=== PATIENT | female | born 1980 | race African-American/Black ===

== ENCOUNTER 2022-04-18 09:38 | Outpatient (CLI) | payer MEDICARE, MEDICAID, SELFPAY ==
[2022-04-18 10:25] LABS: Hematocrit 31.7 % (37.0-47.0); Hemoglobin 10.3 g/dL (12.0-15.0)
[2022-04-18 10:36] LABS: Anion Gap 7 mmol/L (8-16); Blood Urea Nitrogen 17 mg/dL (7-17); Calcium 8.3 mg/dL (8.4-10.2); Carbon Dioxide 25 mmol/L (22-30); Chloride 105 mmol/L (98-107); Estimated Glomerular Filt Rate > 60; Glucose 188 mg/dL (65-110); Potassium 4.2 mmol/L (3.4-5.0); Sodium 137 mmol/L (137-145)
== END 2022-04-18 09:39 | disposition home or self-care (01) ==
LOC: ANHSURGERY 09:45
PROVIDERS: Anesthesiology; PCP Internal Medicine Gastroenterology; Visit Provider Obstetrics & Gynecology Gynecology
DX: D64.9 Anemia, unspecified (principal); E11.9 Type 2 diabetes mellitus without complications
CPT/HCPCS: 36415; 80048; 85014; 85018

== ENCOUNTER 2022-04-23 01:42 | Day surgery (SDC) | payer MEDICARE, MEDICAID, SELFPAY ==
[2022-04-11 08:36] VITALS: BMI 30.9
--- NOTE | 2022-04-11 08:44 | PC.NURSE ---
Report to the Outpatient Waiting Room, entrance under the green pavilion located off [facility], at time _0800_ on date _[id number]_. Planned Procedure Time: _1000_. Time changes happen often and if your time is changed the preop area will call you the afternoon before. - You and your visitor will be asked to self-screen and do not enter if you have any COVID symptoms. - Only one visitor is requested with a max of two and NO children visitors are allowed at this time. - The patient visitor may be requested to leave or wait in car when not with patient due to distancing restrictions. - A mask is optional within the hospital. Patients may have clear liquids (water, carbonated beverages, clear teas, apple juice) until 3 hours prior to surgery with a maximum of 20 ounces. - No food from midnight until time of surgery Take the following medications with a SIP of water the morning of surgery: ____None No insulin morning of surgery. Medications to discontinue per physician Date to take last dose Contact Dr Maya's office about Eliquis. Please no make-up, nail croatian, hairspray, perfume, deodorant, or body powder the day of surgery. No jewelry (including any body piercings) or valuables the day of surgery, leave them at home. Please take a shower or bath the night before, or the morning of, surgery with an antibacterial soap. Wear comfortable, loose fitting clothing. - Jewelry must be removed prior to entering the operating room. Rings and piercings that are not removed may be cut off. - The hospital will not accept responsibility for valuables. - Please leave all valuables, including medications, at home the day of surgery. If you are going home after surgery, a licensed driver retraining instructor must drive you home. - NO public transportation without another adult if you receive anesthesia. - We recommend that an adult stay with you for 24 hours following discharge. - We also recommend that you do not drive, make important decision, drink alcoholic beverages, or take any drugs that were not prescribed by your health care provider for at least 24 hours after your discharge time. Follow any additional instructions given to you from your surgeon. If you or anyone in your household have experienced Covid symptoms in the past week, please notify your surgeon or the nurse liaison at the phone number below for possible testing. Telephone instructions given to __Patient__and asked if any additional questions and then verbalized understanding. Patient advised to call surgeon office or pre surgery nurse liaison [phone] if any additional questions.
--- NOTE | 2022-04-23 07:29 | WPDHPUPDATE1 ---
History and Physical Update Update Date/Time: 04/23/22 07:29 History and Physical has been reviewed, including an updated exam of the patient. There are NO changes in the patient's condition. Risks, benefits, and alternatives have been discussed and questions answered. Patient agrees to proceed with procedure.
--- NOTE | 2022-04-23 07:29 | PM.HPGS ---
History of Present Illness History of Present Illness Consent: Risks, benefits, and alternatives have been discussed and questions answered. Patient agrees to proceed with procedure. Chief complaint: menorrhaghia Narrative: Milagro Duarte is a 41 year old female with heavy but regular cycles patient states in December she with 3 3 boxes of tampons. She typically a cycle each month lasting for 5 days the flow and clotting has increased over the past several months. The patient was anemic with a hemoglobin of 10.7. It was recommended to proceed with further workup. Risks of infection, bleeding, perforation, and fluid imbalance were reviewed. Possible pathology was discussed. The patient voices understanding and agrees to proceed. Review of Systems Review of Systems: not repeated day of surgery; patient states no changes in status Genitourinary: Genitourinary: Reports hot flashes Musculoskeletal: Musculoskeletal: Reports back pain Endocrine: Endocrine: Reports polydipsia PMFSH Past Medical History Medical History (Updated 04/23/22 @ 07:34 by Carmita Maya MD) History of deep vein thrombosis Myasthenia gravis (normal spontaneous vaginal delivery) x2 Type 2 diabetes mellitus Surgical History Surgical History (Updated 04/23/22 @ 07:33 by Carmita Maya MD) History of bilateral tubal ligation History of thymectomy Social History Social History Smoking status: Never smoker Alcohol intake: current Drinks per week: 2 Living arrangements: with family Spiritual care concerns: No Meds Home Medications and Allergies Home Medications Medication Instructions Recorded Confirmed Type apixaban 5 mg tablet (Eliquis) 5 mg PO BID 04/11/22 04/11/22 History azathioprine 50 mg tablet 50 mg PO BID 04/11/22 04/11/22 History cholecalciferol (vitamin D3) 50 2,000 unit PO DAILY 04/11/22 04/11/22 History mcg (2,000 unit) capsule ferrous sulfate 325 mg (65 mg 325 mg PO DAILY 04/11/22 04/11/22 History iron) tablet insulin glargine 100 unit/mL (3 12 unit subcut QAM 04/11/22 04/11/22 History mL) subcutaneous pen (Lantus Solostar U-100 Insulin) insulin lispro 100 unit/mL 1 unit subcut TIDWMEAL 04/11/22 04/11/22 History subcutaneous pen (Humalog KwikPen (U-100) Insulin) lisinopril 5 mg tablet 5 mg PO DAILY 04/11/22 04/11/22 History pregabalin 75 mg capsule 75 mg PO BID 04/11/22 04/11/22 History Allergies Allergy/AdvReac Type Severity Reaction Status Date / Time No Known Allergies Allergy Verified 04/11/22 08:31 Exam Const: General: healthy appearing and alert Orientation/consciousness: patient oriented x3 Neck: Thyroid: diffusely enlarged Resp: Effort & Inspection: normal respiratory effort GI: GI Palp: Yes Soft to palpation, No Tenderness to palpation present (GI) and No Palpable mass present : External Female Exam: normal external appearance Speculum Exam - Vagina: normal appearance of the vagina and normal vaginal discharge Speculum Exam - Cervix: normal appearance of the cervix Bimanual exam- vagina & uterus: uterine size normal and consistency normal Bimanual Exam- Adnexa, other: normal adnexae and No adnexal tenderness Neuro: General: patient oriented x3 Assessment and Plan Assessment and plan (1) Menorrhagia: Code(s): N92.0 - Excessive and frequent menstruation with regular cycle Status: Acute Assessment and Plan: plan is to proceed with D&C hysteroscopy
--- NOTE | 2022-04-23 08:07 | WPDANESEPPF ---
Anes - Initial Pre Proc Eval Procedure: Operation Date: 04/23/22 10:00 Proposed Procedures p Hysteroscopy, Dilation and Curettage - Carmita Maya MD Date/Time: 04/23/22 08:07 Surgeon: Carmita Maya MD Pre Op Diagnosis: menorrhaghia Patient Data Age: 41 Gender: F Height: 1.63 m Weight: 81.8 kg Allergies Allergy/AdvReac Type Severity Reaction Status Date / Time No Known Allergies Allergy Verified 04/23/22 08:00 Home Medications Medication Instructions Recorded Confirmed Type apixaban 5 mg tablet (Eliquis) 5 mg PO BID 04/11/22 04/11/22 History azathioprine 50 mg tablet 50 mg PO BID 04/11/22 04/11/22 History cholecalciferol (vitamin D3) 50 2,000 unit PO DAILY 04/11/22 04/11/22 History mcg (2,000 unit) capsule ferrous sulfate 325 mg (65 mg 325 mg PO DAILY 04/11/22 04/11/22 History iron) tablet insulin glargine 100 unit/mL (3 12 unit subcut QAM 04/11/22 04/11/22 History mL) subcutaneous pen (Lantus Solostar U-100 Insulin) insulin lispro 100 unit/mL 1 unit subcut TIDWMEAL 04/11/22 04/11/22 History subcutaneous pen (Humalog KwikPen (U-100) Insulin) lisinopril 5 mg tablet 5 mg PO DAILY 04/11/22 04/11/22 History pregabalin 75 mg capsule 75 mg PO BID 04/11/22 04/11/22 History Patient hx anesthesia problems: none Family hx anesthesia problems: none Results Review: All pre-operative results and documents have been reviewed as part of the pre-operative evaluation. [facility] Past Medical History Medical History History of deep vein thrombosis Myasthenia gravis (normal spontaneous vaginal delivery) x2 Type 2 diabetes mellitus Surgical History Surgical History History of bilateral tubal ligation History of thymectomy Social History Social History Smoking status: Never smoker Alcohol intake: current Drinks per week: 2 Living arrangements: with family Spiritual care concerns: No Anes - Eval Final PreProcedure Day of Procedure 04/23/22 08:07 Patient weight: obese Heart: regular rate and rhythm Lungs: clear to auscultation Airway: Mallampati scale class II Neurological: alert and oriented Last oral intake: >/= 8 hours ASA classification: III Emergent: no Anesthetic plan: proceed Anesthesia type and monitoring: general GIVS and standard monitoring Results Review: All pre-operative results and documents have been reviewed as part of the pre-operative evaluation. Informed Consent: The patient's anesthetic plan and its attendant risks and benefits were discussed with the patient/family/POA. Questions were solicited and answers provided to the satisfaction of the patient/family/POA.
[2022-04-23] MEDS: LACTATED RINGERS 1,000 ML 30 ML IV CONT (08:20)
[2022-04-23] MEDS: ACETAMINOPHEN 500 MG TABLET 1000 MG PO (08:28)
[2022-04-23] MEDS: DEXTROSE 50% 25 GM/50 ML SYRINGE IV PUSH (08:32)
[2022-04-23 08:35] LABS: Glucose Point of Care 69 mg/dl (65-105)
[2022-04-23 08:36] VITALS: BP 170/98; PULSE 96; RESP 16; TEMP 36.1; O2SAT 100
[2022-04-23] MEDS: LIDOCAINE HCL 1% PF 30 ML VIAL 10 ML INFILTRATE (08:53)
[2022-04-23 09:03] VITALS: BP 104/62; PULSE 91; RESP 16; O2SAT 100
--- NOTE | 2022-04-23 09:03 | P.OP_ITS ---
Procedure Note - Detailed Date of Procedure 04/23/22 Pre-op Diagnosis menorrhaghia Post-op Diagnosis Same Procedure Performed D&C hysteroscopy Surgeon Carmita Maya MD Anesthesia MAC and Local Findings cervical stenosis; uterus sounds to 8cm and appears grossly secretory Description of Procedure The patient is taken to the operating room and placed under anesthesia in the dorsal lithotomy position. She was prepped and draped in the usual sterile fas hion. Ulysses speculum was placed in the vagina and the cervix was grasped on the anterior lip with a tenaculum. The cervix is noted to be stenotic at the external os and the small Hegar is used to enter the os. The uterus is noted to be retroverted. The cervix is serially dilated to a 5 Hegar. The uterus is sounded to 8cm. The hysteroscope is placed with the stated findings. Due to no abnormalities noted the hysteroscope was removed. The small curette is used to curette the endometrium until a good uterine cry is noted in all areas. All instruments are removed. Sponge, needle, and instrument counts are correct per the OR staff. The patient is awakened from anesthesia and taken to recovery in stable condition. Estimated Blood Loss 5 Drains No Packing No Pathology Yes ( Endometrial curettings) Complications No immediate complications Condition Stable Disposition PACU
[2022-04-23 09:10] LABS: Glucose Point of Care 124 mg/dl (65-105)
[2022-04-23 09:30] VITALS: BP 125/95; PULSE 95; RESP 16
== END 2022-04-23 10:00 | disposition home or self-care (01) ==
PROVIDERS: PCP Internal Medicine Gastroenterology; Visit Provider Obstetrics & Gynecology Gynecology
PROC: 0U5B8ZZ Destruction of Endometrium, Via Natural or Artificial Opening Endoscopic (ICD-10-PCS; CPT 58563; principal; 2022-04-23 10:00)
DX: N92.0 Excessive and frequent menstruation with regular cycle (principal); E11.9 Type 2 diabetes mellitus without complications; Z86.718 Personal history of other venous thrombosis and embolism; Z79.01 Long term (current) use of anticoagulants; Z79.4 Long term (current) use of insulin; E66.9 Obesity, unspecified; Z68.30 Body mass index [BMI] 30.0-30.9, adult
CPT/HCPCS: 58558; 82948; 88305; A9270; J2250; J2405; J2704; J3010; J7030; J7120

== ENCOUNTER 2024-06-23 14:15 | Outpatient (CLI) | payer MEDICARE, MEDICAID, SELFPAY ==
[2024-06-23 14:39] LABS: Add Urine Microscopic? YES; Appearance Urine Clear (Clear); Bacteria Urine None Seen /hpf; Bilirubin Urine Negative (Negative); Blood Urine Trace (Negative); Color Urine Yellow (Yellow); Glucose Urine UA Trace mg/dL (Negative); Ketones Urine Negative (Negative); Leukocyte Esterase Ur Negative LEU/UL (Negative); Nitrate Urine Negative (Negative); Protein Urine 3+ mg/dL (Negative); Specific Grav Ur 1.021 (1.001-1.035); Squamous Epithelial Cell Urine None Seen /hpf (Few); WBC Urine 0-5 /hpf (0-3)
--- OUTSIDE RECORDS SUMMARY | 2024-06-23 14:51 | XMS_ITS | Clinical Summary ---
Author Organization [facility] Address [address] [place] [address] Phone Care Team Providers Care City Bus Driver Name Role Phone Johnnie Velasquez Provider Primary Care Provider Unavailable Allergies No known active allergies Medications Lantus Solostar U-100 Insulin 100 unit/mL (3 mL) solution for injection INJECT 25 UNITS UNDER THE SKIN DAILY 11/02/2019 Active insulin lispro (HumaLOG KwikPen Insulin) 100 unit/mL pen syringe Inject 5 units with meals 06/05/2019 Active lisinopriL (PRINIVIL) 5 mg tablet Take 1 tablet daily as directed 09/29/2019 Active azaTHIOprine (IMURAN) 50 mg tablet TAKE 2 TABLETS TWICE DAILY 08/01/2016 Active Active Problems No known active problems Family History Medical History Relation Name Comments Cancer Maternal Grandfather Relation Name Status Comments Maternal Grandfather Social History Tobacco Use Types Packs/Day Years Used Date Smoking Tobacco: Never Smokeless Tobacco: Never Alcohol Use Standard Drinks/Week Comments Yes 3 (1 standard drink = 0.6 oz pur e alcohol) Comments Unknown Sex and Gender Information Value Date Recorded Sex Assigned at Not on file Legal Sex Female 9:23 AM CDT Gender Identity Not on file Sexual Orientation Not on file Last Filed Vital Signs Vital Sign Reading Time Taken Comments Blood Pressure 120/80 11/10/2019 11:36 AM CDT Pulse - - Temperature - - Respiratory Rate - - Oxygen Saturation - - Inhaled Oxygen Concentration - - Weight 79.8 kg (176 lb) 11/10/2019 11:36 AM CDT Height 162.6 cm (5' 4 ) 11/10/2019 11:36 AM CDT Body Mass Index 30.21 11/10/2019 11:36 AM CDT Plan of Treatment Health Maintenance Due Date Last Done Comments PNEUMOCOCCAL VACCINE 0-64 YEARS (1 of 2 - PCV) 1984 DIABETES ANNUAL FOOT EXAM 1996 DIABETES ANNUAL RETINAL EXAM 1996 DIABETES MICROALBUMIN ANNUAL SCREEN 1996 LDL CHOLESTEROL ANNUAL 1996 DTAP/TDAP/TD VACCINES (1 - Tdap) 1997 HEPATITIS B VACCINES (1 of 3 - 19+ 3-dose series) 1997 CERVICAL CANCER SCREENING 2008 BREAST CANCER SCREENING 2018 COLORECTAL SCREENING 2023 Colorectal Cancer Screening 2023 FIT-DNA Q 3 years 2023 FIT/FOBT Q 1 year 2023 Flex Sig/CT Colonography Q 5 years 2023 INFLUENZA VACCINE (#1) 2023 DIABETES HBA1C Q 6 MONTHS 05/16/20242023, 06/13/2021 HPV VACCINES Aged Out No longer eligi ble based on patient's age to complete this topic Care Teams City Bus Driver Relationship Specialty Start Date End Date Johnnie Velasquez Provider PCP - General 11/10/19
--- OUTSIDE RECORDS SUMMARY | 2024-06-23 14:51 | XMS_ITS | CONTINUITY OF CARE DOCUMENT ---
Author Name moises jessicatom Address Unknown Organization [facility] Address [address] [place] [address] [address] [place] [address] Phone [phone] Care Team Providers Care Beauty Counselor Name Role Phone Son Gar MD Unavailable [phone] BECKI GALO Unavailable [phone] BECKI GALO Unavailable [phone] PROBLEMS Condition Status Date Provider Notes Cardiology examination active Son St DVT active Son Gar MD Elevated blood pressure active Son Gar MD Leg pain active Son Gar MD Diabetes mellitus active Sno Gar MD Swelling of bilateral legs active Son rodriguez MD ENCOUNTERS Date Type Provider Location Encounter Diag nosis - In-person encounter Office Visit Son aGr MD [facility] - In-person encounter Office Visit Son Gar MD [facility] Swelling of bilateral legs - In-person encounter Office Visit Son Gar MD [facility] Cardiology examinationDVTElevated blood pressureLeg painDiabetes mellitus VITAL SIGNS Date Observation Value Provider Body Mass Index (Ratio) 31.79 kg/m2 Dominique Toledo blood pressure, diastolic -1 mm[Hg] Ina Cote blood pressure, systolic 150 mm[Hg] Clarice Alamo blood pressure, diastolic 90 mm[Hg] Clarice Mcrae blood pressure, systolic 150 mm[Hg] Olivia Mcrae blood pressure, cuff size regular Clarice Mcrae weight E&M 185.2 [lb_av] Kathrine Mcrae pulse rate 98 /min aKthrine Mcrae respiratory rate E&M 18 /min Kathrine Mcrae oxygen saturation, oximetry 99 % Kathrine Mcrae height E&M 64 [in_i] Kathrine Mcrae Body Mass Index (Ratio) 31.07 kg/m2 Rachell king Junior blood pressure, diastolic 91 mm[Hg] Ariana almazan Jerardo blood pressure, systolic 125 mm[Hg] Cabrera roland Jerardo oxygen saturation, oximetry 98 % Kirsten Kurtz respiratory rate E&M 18 /min Kirsten Kurtz pulse rate 91 /min Kirsten Kurtz weight E&M 181 [lb_av] Kirsten Kurtz height E&M 64 [in_i] Kirsten Kurtz Body Mass Index (Ratio) 30.72 kg/m2 Rachell Reynoldsmaru blood pressure, diastolic 102 mm[Hg] Li nkLogic blood pressure, systolic 154 mm[Hg] Clarice kLogic blood pressure, diastolic 102 mm[Hg] Sa ra Hernandez blood pressure, systolic 154 mm[Hg] Deborah a Hernandez oxygen saturation, oximetry 98 % Milagro Hernandez respiratory rate E&M 22 /min Milagro Si ms pulse rate 88 /min Milagro Hernandez weight E&M 179 [lb_av] Milagro Hernandez height E&M 64 [in_i] Milagro Hernandez blood pressure, cuff size regular Sa ra Hernandez ALLERGIES No Known Drug Allergies HISTORY OF MEDICATION USE Medication Status Instructions Dates Provider Indications Com ryanne Grecoendia 10 mg tablet active Son Gar MD Eliquis 5 mg tablet active Take 1 tablet by mouth twice a day For the first week, please take two tablets twice a day. After one week, take one tablet twice a day. 9 Son Gar MD Lantus Solostar U-100 Insulin 100 unit/mL (3 mL) insulin pen active Milagro Hernandez lisinopril 5 mg tablet completed - 1 Son Gar MD azathioprine 50 mg tablet active Milagro Hernandez gabapentin 600 mg tablet active Imlagro Hernandez Humalog KwikPen Insulin 100 unit/mL insulin pen active Milagro Hernandez Lyrica unspecified unspecified active Take 1 capsule by mouth three times a day Milagro Hernandez SOCIAL HISTORY Date Observation Value Provider number of grandchildren Son Gar MD social history E&M S moking History: U nknown if patient has ever smoked. Son Gar MD smoking status Unknown if ever smoked Son Gar MD social history reviewed E&M revi ewed - no changes required Son Gar MD social history reviewed E&M revi ewed - no changes required Son Gar MD social history E&M S moking History: U nknown if patient has ever smoked. Susanne Pacheco social history reviewed E&M revi ewed - no changes required Susanne Pacheco smoking status Unknown if ever smoked Bri Pacheco INSURANCE PROVIDERS Payer name Policy type / Coverage type [place] [employer] MEDIC[place] PART B Medicare [id number] [facility] Medicaid 1 [id number] ADVANCE DIRECTIVES Name Date DISCUSSED - NO DECISION MADE TREATMENT PLAN Date Name Performer [id number],C,P t still c/o of heaviness in legs and feet despite use of support stockings Christopher Brittrhett [id number],C,B P is elevated, but pt states that it 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 We will obtain renal duplex and BLANCA. Christopher Stubbs [id number],S,V enous Duplex showed no DVT, however bilateral GSV insufficiency. Crhistopher Stubbs [id number],S, Son Gar MD [id number],C,Will contine to monitor. Son Gar MD [id number],C,Recommended s upport stockings Son Gar MD [id number],C, T he following medications were removed from the medication list: Lisinopril 5 Mg Tablet (Lisinopril) Her updated medication list for this problem includes: Lantus Solostar U-100 Insulin 100 Unit/ml (3 Ml) Insulin Pen (Insulin glargine) Lisinopril 5 Mg Tablet (Lisinopril) Humalog Kwikpen Insulin 100 Unit/ml Insulin Pen (Insulin lispro) Son Gar MD [id number],C,S table today RPM Susanne Junior [id number],C,P t states the swelling of her left leg has resolved, however both feet are now swelling. I recommend she try support stockings. She has finished with Eliquis and does not want to continue due to heavy menstrual bleeding. Pt denies chest pain and SOB. Susanne Jnuior [id number],C,P t states the swelling of her left leg has resolved, however both feet are now swelling. I recommend she try support stockings. She has finished with Eliquis and does not want to continue due to heavy menstrual bleeding. Pt denies chest pain and SOB. Susanne Junior [id number],C, H er updated medication list for this problem includes: Lantus Solostar U-100 Insulin 100 Unit/ml (3 Ml) Insulin Pen (Insulin glargine) Lisinopril 5 Mg Tablet (Lisinopril) Humalog Kwikpen Insulin 100 Unit/ml Insulin Pen (Insulin lispro) Son Gar MD [id number],C,T he pt developed DVT of the left leg. The only risk factor was control pill which she has now stopped. No trauma. Started on Eliquis in ER, sxs improved. Recommend to continue Eliquis for 6 months. If she is symptoamtic, we can consider thrombectomy. She has diabetes, we will check echo. Susanne Pacheco [id number],C,. She has diabetes, we will check echo. Her updated medication list for this problem includes: Lantus Solostar U-100 Insulin 100 Unit/ml (3 Ml) Insulin Pen (Insulin glargine) Lisinopril 5 Mg Tablet (Lisinopril) Humalog Kwikpen Insulin 100 Unit/ml Insulin Pen (Insulin lispro) Susanne Pacheco [id number],C,T he pt developed DVT of the left leg. The only risk factor was control pill which she has now stopped. No trauma. Started on Eliquis in ER, sxs improved. Recommend to continue Eliquis for 6 months. If she is symptoamtic, we can consider thrombectomy. 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 We will obtain renal duplex and BLANCA. Christopher Stubbs Cardiology:Venous Du plex showed no DVT, however bilateral GSV insufficiency. Christopher Stubbs Cardiology Son Gar MD Cardiology:Will contine to monit or. Son Gar MD Cardiology:Recommended support s salina Gar MD Cardiology: T he following medications were removed from the medication list: Lisinopril 5 Mg Tablet (Lisinopril) Her updated medication list for this problem includes: Lantus Solostar U-100 Insulin 100 Unit/ml (3 Ml) Insulin Pen (Insulin glargine) Lisinopril 5 Mg Tablet (Lisinopril) Humalog Kwikpen Insulin 100 Unit/ml Insulin Pen (Insulin lispro) Son Gar MD Cardiology:Stable to day RPM Susanne Junior Cardiology:Pt states the swelling of her left leg has resolved, however both feet are now swelling. I recommend she try support stockings. She has finished with Eliquis and does not want to continue due to heavy menstrual bleeding. Pt denies chest pain and SOB. Susanne Junior Cardiology:Pt states the swelling of her left leg has resolved, however both feet are now swelling. I recommend she try support stockings. She has finished with Eliquis and does not want to continue due to heavy menstrual bleeding. Pt denies chest pain and SOB. Susanne Junior Cardiology: H er updated medication list for this problem includes: Lantus Solostar U-100 Insulin 100 Unit/ml (3 Ml) Insulin Pen (Insulin glargine) Lisinopril 5 Mg Tablet (Lisinopril) Humalog Kwikpen Insulin 100 Unit/ml Insulin Pen (Insulin lispro) Son Gar MD Cardiology:The pt de veloped DVT of the left leg. The only risk factor was control pill which she has now stopped. No trauma. Started on Eliquis in ER, sxs improved. Recommend to continue Eliquis for 6 months. If she is symptoamtic, we can consider thrombectomy. She has diabetes, we will check echo. Susanne Junior Cardiology:. She has diabetes, we will check echo. Her updated medication list for this problem includes: Lantus Solostar U-100 Insulin 100 Unit/ml (3 Ml) Insulin Pen (Insulin glargine) Lisinopril 5 Mg Tablet (Lisinopril) Humalog Kwikpen Insulin 100 Unit/ml Insulin Pen (Insulin lispro) Susanne Pacheco Cardiology:The pt de veloped DVT of the left leg. The only risk factor was control pill which she has now stopped. No trauma. Started on Eliquis in ER, sxs improved. Recommend to continue Eliquis for 6 months. If she is symptoamtic, we can consider thrombectomy. Susanne Reynoldsgene Date Name Arterial Duplex Bi-L ower EX Renal Artery Duplex RPM (remote patient monitoring) Venous Doppler Bilat eral LE - Reflux Complete Echo HISTORY OF PROCEDURES Procedure Date Procedure Name Provider Procedure Notes S tatus EKG Son Gar MD completed EKG Son Gar MD completed
--- OUTSIDE RECORDS SUMMARY | 2024-06-23 14:52 | XMS_ITS | Patient Health Summary ---
Author Organization [facility] Address [address] [place] [address] Care Team Providers Care Head Of It Name Role Phone Amelie Freitas MD Primary Care Provider + [phone] Note from [facility],non-owned Affiliates and Associated Physician Practices is amultiple site organization consisting of ambulatory clinics and hospital sitesin [place], [place], [place] and [place]. This disclosure is being madepursuant to the Care Everywhere program and may not contain all information available regarding this patient. Last updated 18.[facility] [employer] Allergies No known active allergies Medications * Be aware that medications may not be up to date on this document. Alwaysverify current medications with the patient. * insulin lispro (HUMALOG) 100 UNIT/ML vial(Started 01/07/2012) Inject 8 (eight) Units subcutaneously * insulin glargine (LANTUS) vial(Started 01/07/2012) Inject 25 (twenty five) Units subcutaneously * lisinopril (PRINIVIL;ZESTRIL) 5 MG tablet Take 1 (one) tablet by mouth once daily * Continuous Blood Gluc Sensor (FreeStyle Mindy 3 Sensor) [facility](Started 05/12/2022) USE DIRECTED AND CHANGE ONCE EVERY 14 DAYS * pyRIDostigmine (Mestinon) 60 MG tablet(Started 08/13/2022) TAKE 1 TABLET BY MOUTH THREE TIMES A DAY 1 refill by 08/13/2023 * Kerendia 10 MG tablet(Started 06/29/2022) Take 1 (one) tablet by mouth every morning * NovoLOG FLEXPEN pen(Started 08/08/2022) * DULoxetine (Cymbalta) 60 MG capsule(Started 07/16/2023) Take 1 (one) capsule by mouth once daily 4 refills by 07/15/2024 * Insulin Disposable Pump (Omnipod 5 G6 Pods, Gen 5,) MISC(Started 09/22/2023) * clobetasol (Temovate) 0.05 % ointment(Started 02/18/2024) APPLY TO RASH TWICE DAILY. TWO WEEKS ON FOLLOWED BY ONE WEEK OFF. 30 DAYS SUPPLY. 2 refills by 02/17/2025 * betamethasone dipropionate (Diprosone) 0.05 % ointment(Started 04/03/2024) Apply to affected area 2 times daily 2 refills by 04/03/2025 * DULoxetine (Cymbalta) 60 MG capsule(Started 04/20/2024) Take 1 (one) capsule by mouth 2 times daily 4 refills by 04/20/2025 Active Problems Problem Noted Date Diagnosed Date Dizziness 11/14/2023 Near syncope 11/14/2023 Myasthenia gravis 11/14/2023 Swelling of lower extremity 06/26/2022 DVT (deep venous thrombosis) 12/22/2021 Elevated blood-pressure read ing, without diagnosis of hypertension 12/22/2021 Encounter for screening for cardiovascular disor ders 12/22/2021 Leg pain 12/22/2021 Dysphagia 11/10/2012 Polyglandular autoimmune syndrome, type 2 2012 Premature ovarian failure 09/01/2012 Osteopenia 08/29/2012 Myasthenia gravis status post thymectomy 013 Thyroid activity decreased 06/18/2012 Subclinical hyperthyroidism 05/30/2012 Type 1 diabetes mellitus with hyperglycemia 08/2012 DM (diabetes mellitus) 01/06/2012 Lumbar radiculopathy Resolved Problems Problem Noted Date Diagnosed Date Resolved Date Diabetic polyneuropathy asso ciated with type 2 diabetes mellitus 06/13/2021 11/20/2022 Constipation 11/10/2012 07/11/2021 DKA (diabetic ketoacidoses) 01/05/2012 06/27/2021 Social History Tobacco Use Types Packs/Day Years Used Date Smoking Tobacco: Never Smokeless Tobacco: Never Alcohol Use Standard Drinks/Week Comments Never 0 (1 standard drink = 0.6 oz pur e alcohol) AUDIT-C Answer Date Recorded Frequency of Alcohol Consumption Never 07/21/2019 Average Number of Drinks Not on file 020 Frequency of Binge Drinking Not on file 06/28 Sex and Gender Information Value Date Recorded Sex Assigned at Female 05/10/2022 1:03 PM PRIVATE DUTY NURSE Gender Identity Not on file Sexual Orientation Not on file Last Filed Vital Signs Vital Sign Reading Time Taken Comments Blood Pressure 146/87 04/20/2024 11:10 AM PRIVATE DUTY NURSE Pulse 87 04/20/2024 11:10 AM PRIVATE DUTY NURSE Temperature 36.7 ??C (98 ??F) 11/16/2023 7:49 AM CDT Respiratory Rate 18 11/16/2023 7:49 AM CDT Oxygen Saturation 98% 04/20/2024 11:10 AM PRIVATE DUTY NURSE Inhaled Oxygen Concentration - - Weight 88.5 kg (195 lb) 04/20/2024 11:10 AM PRIVATE DUTY NURSE Height 162.6 cm (5' 4 ) 11/15/2023 5:57 AM CDT Body Mass Index 33.47 11/15/2023 5:57 AM CDT Procedures * SD PUNCH BX SKIN EA SEP ADDL(Performed 03/19/2024) Performed for Rash * SD PUNCH BX SKIN SINGLE LESION(Performed 03/19/2024) Performed for Rash * DERMATOPATHOLOGY(Performed 03/19/2024) Performed for Rash * CARDIAC EKG ORDER(Performed 11/18/2023) * GLUCOSE - POINT OF CARE(Performed 11/16/2023) * GLUCOSE - POINT OF CARE(Performed 11/16/2023) * CBC W/O DIFFERENTIAL(Performed 11/16/2023) Performed for Dizziness * TSH REFLEX FREE T4(Performed 11/16/2023) Performed for Myasthenia gravis (HCC) * RENAL FUNCTION PANEL(Performed 11/16/2023) Performed for Myasthenia gravis (HCC) * GLUCOSE - POINT OF CARE(Performed 11/15/2023) * GLUCOSE - POINT OF CARE(Performed 11/15/2023) * ECHO COMPLETE W CONTRAST(Performed 11/15/2023) Performed for Dizziness, Near syncope * IMMUNOFLUORESCENT STUDY DERM(Performed 11/15/2023) Performed for Rash and other nonspecific skin eruption * DERMATOPATHOLOGY(Performed 11/15/2023) Performed for Rash and other nonspecific skin eruption * MAGNESIUM BLOOD(Performed 11/15/2023) Performed for Dizziness * PHOSPHORUS BLOOD(Performed 11/15/2023) Performed for Dizziness * BASIC METABOLIC PANEL (CALCIUM TOTAL)(Performed 11/15/2023) Performed for Dizziness * CBC W/O DIFFERENTIAL(Performed 11/15/2023) Performed for Dizziness * HEMOGLOBIN A1C(Performed 11/15/2023) Performed for Type 2 diabetes mellitus without complication, unspecified whether senior care insulin use (HCC) * BASIC METABOLIC PANEL (CALCIUM TOTAL)(Performed 11/15/2023) * TROPONIN-I HIGH SENSITIVE REFLEX 1HOUR(Performed 11/14/2023) * TROPONIN-I HIGH SENSITIVE REFLEX 1HOUR(Performed 11/14/2023) * TROPONIN-I HIGH SENSITIVE BASELINE + 1HR(Performed 11/14/2023) * COMPREHENSIVE METABOLIC PANEL(Performed 11/14/2023) * CBC W AUTO DIFFERENTIAL(Performed 11/14/2023) * XR CHEST 2VW(Performed 11/14/2023) Performed for Dizziness * EKG 12-LEAD(Performed 11/14/2023) Performed for Dizziness * IR KULDIP LUMBAR DIRECT APPROACH(Performed 11/13/2021) Performed for Lumbar radiculopathy * GLUCOSE - POINT OF CARE(Performed 11/13/2021) * XR LUMBAR SPINE 2 OR 3VW(Performed 10/18/2021) Performed for Back pain, unspecified back location, unspecified back pain laterality, unspecified chronicity * MRI LUMBAR SPINE WWO CONTRAST(Performed 08/21/2021) Performed for Lumbar radiculopathy * CREATININE - POCT INTERFACED(Performed 08/21/2021) * HEMOGLOBIN A1C(Performed 06/13/2021) Performed for Myasthenia gravis (HCC), Diabetic polyneuropathy associated with type 2 diabetes mellitus (HCC) * BASIC METABOLIC PANEL (CALCIUM TOTAL)(Performed 06/13/2021) Performed for Myasthenia gravis (HCC), Diabetic polyneuropathy associated with type 2 diabetes mellitus (HCC) * CARDIAC EKG ORDER(Performed 06/01/2021) * MRI BRAIN WO CONTRAST(Performed 05/31/2021) Performed for Tingling * GLUCOSE - POINT OF CARE(Performed 05/31/2021) * BLOOD TYPE VERIFICATION(Performed 05/31/2021) * TROPONIN I(Performed 05/31/2021) * GLUCOSE - POINT OF CARE(Performed 05/31/2021) * EKG 12-LEAD(Performed 05/31/2021) Performed for Tingling * SARS-COV-2 (COVID-19)+INFLU A+B PCR RAPID(Performed 05/31/2021) * TYPE + SCREEN PANEL(Performed 05/31/2021) * PT-INR SLH(Performed 05/31/2021) * COMPREHENSIVE METABOLIC PANEL(Performed 05/31/2021) * CBC W AUTO DIFFERENTIAL(Performed 05/31/2021) * TROPONIN I(Performed 05/31/2021) * CT ANGIO BRAIN AND NECK(Performed 05/31/2021) Performed for Tingling * GLUCOSE - POINT OF CARE(Performed 05/31/2021) * CT BRAIN STROKE(Performed 05/31/2021) Performed for Tingling * HEPATIC FUNCTION PANEL(Performed 02/13/2019) Performed for Therapeutic drug monitoring * CBC W AUTO DIFFERENTIAL(Performed 02/13/2019) Performed for Therapeutic drug monitoring * HEMOGLOBIN A1C(Performed 02/13/2019) Performed for Drug or chemical induced diabetes mellitus with diabetic polyneuropathy, with long-term current use of insulin (HCC) * COMPREHENSIVE METABOLIC PANEL(Performed 04/01/2018) Performed for Therapeutic drug monitoring * CBC W AUTO DIFFERENTIAL(Performed 04/01/2018) Performed for Therapeutic drug monitoring * COMPREHENSIVE METABOLIC PANEL(Performed 11/12/2017) Performed for Therapeutic drug monitoring * CBC W AUTO DIFFERENTIAL(Performed 11/12/2017) Performed for Therapeutic drug monitoring * CULTURE URINE(Performed 09/30/2017) Performed for Acute cystitis with hematuria * URINALYSIS AUTO - POINT OF CARE (AMB) STL(Performed 09/30/2017) Performed for Acute cystitis with hematuria * MRI LUMBAR SPINE WO CONTRAST(Performed 04/15/2017) * CULTURE URINE(Performed 12/03/2016) Performed for Acute cystitis without hematuria * URINALYSIS AUTO - POINT OF CARE (AMB) STL(Performed 12/03/2016) Performed for Acute cystitis without hematuria * CT CHEST ABDOMEN PELVIS W CONT(Performed 10/26/2016) * MRI BRAIN WWO CONTRAST(Performed 10/26/2016) * CREATININE BLOOD - POCT (IP) SLH(Performed 10/26/2016) * GLUTAMIC ACID DECARBOXYLASE (CARLENE) ANTIBODY(Performed 10/09/2016) * LAB HISTORICAL RESULTS-ONBASE(Performed 09/21/2016) * LAB HISTORICAL RESULTS-ONBASE(Performed 09/14/2016) * LAB HISTORICAL RESULTS-ONBASE(Performed 09/13/2016) * LAB HISTORICAL RESULTS-ONBASE(Performed 09/12/2016) * URINALYSIS AUTO - POINT OF CARE (AMB) STL(Performed 09/04/2016) Performed for Acute cystitis with hematuria * CBC W AUTO DIFFERENTIAL(Performed 11/14/2015) * HEPATIC FUNCTION PANEL(Performed 11/14/2015) * CBC W AUTO DIFFERENTIAL(Performed 11/14/2015) * CBC W AUTO DIFFERENTIAL(Performed 07/19/2015) * HEPATIC FUNCTION PANEL(Performed 07/19/2015) * CBC W AUTO DIFFERENTIAL(Performed 07/19/2015) * CBC W AUTO DIFFERENTIAL(Performed 04/15/2015) * HEPATIC FUNCTION PANEL(Performed 04/15/2015) * HEPATIC FUNCTION PANEL(Performed 03/08/2015) * CBC W AUTO DIFFERENTIAL(Performed 03/08/2015) * GLUCOSE(Performed 03/08/2015) * THIOPURINE METHYLTRANSFERASE(Performed 08/16/2014) * HEPATIC FUNCTION PANEL(Performed 08/16/2014) * CBC W AUTO DIFFERENTIAL(Performed 08/16/2014) * CBC W AUTO DIFFERENTIAL(Performed 08/16/2014) * CT HEAD WO CONTRAST(Performed 07/28/2014) * CBC W AUTO DIFFERENTIAL(Performed 07/28/2014) * BASIC METABOLIC PANEL (CALCIUM TOTAL)(Performed 07/28/2014) * CBC W AUTO DIFFERENTIAL(Performed 07/28/2014) * GLUCOSE ACCUCHECK(Performed 02/27/2013) * VITAMIN D 1,25 DIHYDROXY(Performed 02/27/2013) * CBC W AUTO DIFFERENTIAL(Performed 02/27/2013) * VITAMIN D 25-HYDROXY(Performed 02/27/2013) * PTH INTACT W/O CALCIUM(Performed 02/27/2013) * PHOSPHORUS BLOOD(Performed 02/27/2013) * BASIC METABOLIC PANEL (CALCIUM TOTAL)(Performed 02/27/2013) * MAGNESIUM BLOOD(Performed 02/27/2013) * CALCIUM IONIZED WHOLE BLOOD(Performed 02/27/2013) * GLUCOSE ACCUCHECK(Performed 02/26/2013) * GLUCOSE ACCUCHECK(Performed 02/26/2013) * GLUCOSE ACCUCHECK(Performed 02/26/2013) * GLUCOSE ACCUCHECK(Performed 02/26/2013) * XR CHEST 1VW PORTABLE(Performed 02/26/2013) * HEMOGLOBIN A1C(Performed 02/26/2013) * BASIC METABOLIC PANEL (CALCIUM TOTAL)(Performed 02/26/2013) * MAGNESIUM BLOOD(Performed 02/26/2013) * CBC W AUTO DIFFERENTIAL(Performed 02/26/2013) * GLUCOSE ACCUCHECK(Performed 02/25/2013) * BASIC METABOLIC PANEL (CALCIUM TOTAL)(Performed 02/25/2013) * GLUCOSE ACCUCHECK(Performed 02/25/2013) * GLUCOSE ACCUCHECK(Performed 02/25/2013) * XR CHEST 1VW PORTABLE(Performed 02/25/2013) * PATHOLOGY TISSUE(Performed 02/25/2013) * SODIUM WHOLE BLOOD(Performed 02/25/2013) * LACTIC ACID WHOLE BLOOD(Performed 02/25/2013) * POTASSIUM WHOLE BLD(Performed 02/25/2013) * CHLORIDE WHOLE BLOOD(Performed 02/25/2013) * GLUCOSE WHOLE BLOOD(Performed 02/25/2013) * BLOOD GASES ARTERIAL(Performed 02/25/2013) * CALCIUM IONIZED WHOLE BLOOD(Performed 02/25/2013) * SODIUM WHOLE BLOOD(Performed 02/25/2013) * LACTIC ACID WHOLE BLOOD(Performed 02/25/2013) * POTASSIUM WHOLE BLD(Performed 02/25/2013) * CHLORIDE WHOLE BLOOD(Performed 02/25/2013) * GLUCOSE WHOLE BLOOD(Performed 02/25/2013) * BLOOD GASES ARTERIAL(Performed 02/25/2013) * URINALYSIS W/MICROSCOPIC NO CULTURE(Performed 02/25/2013) * CULTURE URINE(Performed 02/25/2013) * GLUCOSE ACCUCHECK(Performed 02/25/2013) * GLUCOSE ACCUCHECK(Performed 02/25/2013) * GLUCOSE ACCUCHECK(Performed 02/25/2013) * GLUCOSE ACCUCHECK(Performed 02/25/2013) * MAGNESIUM BLOOD(Performed 02/25/2013) * BASIC METABOLIC PANEL (CALCIUM TOTAL)(Performed 02/25/2013) * PT-INR SLH(Performed 02/25/2013) * CBC W AUTO DIFFERENTIAL(Performed 02/25/2013) * PT-INR [facility]H(Performed 02/24/2013) * PREPARE FFP UNIT(S)(Performed 02/24/2013) * GLUCOSE ACCUCHECK(Performed 02/24/2013) * PTT SLH(Performed 02/24/2013) * PT-INR [facility](Performed 02/24/2013) * PHOSPHORUS BLOOD(Performed 02/24/2013) * MAGNESIUM BLOOD(Performed 02/24/2013) * BASIC METABOLIC PANEL (CALCIUM TOTAL)(Performed 02/24/2013) * CBC W AUTO DIFFERENTIAL(Performed 02/24/2013) * GLUCOSE ACCUCHECK(Performed 02/24/2013) * GLUCOSE ACCUCHECK(Performed 02/24/2013) * GLUCOSE ACCUCHECK(Performed 02/24/2013) * TYPE + SCREEN PANEL(Performed 02/24/2013) * CROSSMATCH RBC LEUKOREDUCED(Performed 02/24/2013) * CROSSMATCH RBC LEUKOREDUCED(Performed 02/24/2013) * TYPE + SCREEN PANEL(Performed 02/24/2013) * GLUCOSE ACCUCHECK(Performed 02/24/2013) * XR CHEST 1VW PORTABLE(Performed 02/24/2013) * GLUCOSE ACCUCHECK(Performed 02/24/2013) * PHOSPHORUS BLOOD(Performed 02/24/2013) * GLUCOSE ACCUCHECK(Performed 02/24/2013) * CALCIUM IONIZED WHOLE BLOOD(Performed 02/24/2013) * BASIC METABOLIC PANEL (CALCIUM TOTAL)(Performed 02/24/2013) * PT-INR SLH(Performed 02/24/2013) * CBC W AUTO DIFFERENTIAL(Performed 02/24/2013) * GLUCOSE ACCUCHECK(Performed 02/23/2013) * GLUCOSE ACCUCHECK(Performed 02/23/2013) * XR CHEST 1VW PORTABLE(Performed 02/23/2013) * COMPREHENSIVE METABOLIC PANEL(Performed 02/23/2013) * PT-INR SLH(Performed 02/23/2013) * PTT [facility](Performed 02/23/2013) * CBC W AUTO DIFFERENTIAL(Performed 02/23/2013) * GLUCOSE ACCUCHECK(Performed 01/21/2013) * GLUCOSE ACCUCHECK(Performed 01/21/2013) * GLUCOSE ACCUCHECK(Performed 01/21/2013) * BASIC METABOLIC PANEL (CALCIUM TOTAL)(Performed 01/21/2013) * CBC W AUTO DIFFERENTIAL(Performed 01/21/2013) * GLUCOSE ACCUCHECK(Performed 01/20/2013) * GLUCOSE ACCUCHECK(Performed 01/20/2013) * GLUCOSE ACCUCHECK(Performed 01/20/2013) * GLUCOSE ACCUCHECK(Performed 01/20/2013) * GLUCOSE ACCUCHECK(Performed 01/20/2013) * T4 FREE(Performed 01/20/2013) * TSH(Performed 01/20/2013) * GLUCOSE ACCUCHECK(Performed 01/20/2013) * URINALYSIS W/MICROSCOPIC NO CULTURE(Performed 01/20/2013) * CBC W AUTO DIFFERENTIAL(Performed 01/20/2013) * PHOSPHORUS BLOOD(Performed 01/20/2013) * MAGNESIUM BLOOD(Performed 01/20/2013) * BASIC METABOLIC PANEL (CALCIUM TOTAL)(Performed 01/20/2013) * GLUCOSE ACCUCHECK(Performed 01/19/2013) * CT CHEST W CONTRAST(Performed 01/19/2013) * XR CHEST 2VW(Performed 01/19/2013) * GLUCOSE ACCUCHECK(Performed 01/19/2013) * HEPATIC FUNCTION PANEL(Performed 01/19/2013) * BASIC METABOLIC PANEL (CALCIUM TOTAL)(Performed 01/19/2013) * CBC W AUTO DIFFERENTIAL(Performed 01/19/2013) * IGA BLOOD(Performed 01/19/2013) * PATHOLOGY TISSUE(Performed 12/12/2012) * PATHOLOGY TISSUE(Performed 12/12/2012) * LAB HISTORICAL RESULTS-ONBASE(Performed 12/11/2012) * LAB HISTORICAL RESULTS-ONBASE(Performed 12/11/2012) * COMPREHENSIVE METABOLIC PANEL(Performed 10/29/2012) * LAB HISTORICAL RESULTS-ONBASE(Performed 09/16/2012) * LAB HISTORICAL RESULTS-ONBASE(Performed 08/19/2012) * LAB HISTORICAL RESULTS-ONBASE(Performed 06/10/2012) * EKG 12-LEAD(Performed 02/01/2012) * EKG 12-LEAD(Performed 02/01/2012) * BASIC METABOLIC PANEL (CALCIUM TOTAL)(Performed 01/07/2012) * GLUCOSE ACCUCHECK(Performed 01/07/2012) * GLUCOSE ACCUCHECK(Performed 01/07/2012) * TSH(Performed 01/07/2012) * T3 TOTAL(Performed 01/07/2012) * TROPONIN I(Performed 01/07/2012) * T4 FREE(Performed 01/07/2012) * BASIC METABOLIC PANEL (CALCIUM TOTAL)(Performed 01/07/2012) * MAGNESIUM BLOOD(Performed 01/07/2012) * PHOSPHORUS BLOOD(Performed 01/07/2012) * CBC W AUTO DIFFERENTIAL(Performed 01/07/2012) * GLUCOSE ACCUCHECK(Performed 01/07/2012) * BASIC METABOLIC PANEL (CALCIUM TOTAL)(Performed 01/07/2012) * GLUCOSE ACCUCHECK(Performed 01/06/2012) * GLUCOSE ACCUCHECK(Performed 01/06/2012) * GLUCOSE ACCUCHECK(Performed 01/06/2012) * T4 FREE(Performed 01/06/2012) * BASIC METABOLIC PANEL (CALCIUM TOTAL)(Performed 01/06/2012) * MAGNESIUM BLOOD(Performed 01/06/2012) * TSH(Performed 01/06/2012) * PHOSPHORUS BLOOD(Performed 01/06/2012) * GLUCOSE ACCUCHECK(Performed 01/06/2012) * GLUCOSE ACCUCHECK(Performed 01/06/2012) * TROPONIN I(Performed 01/06/2012) * CK + CKMB PANEL(Performed 01/06/2012) * PHOSPHORUS BLOOD(Performed 01/06/2012) * MAGNESIUM BLOOD(Performed 01/06/2012) * BASIC METABOLIC PANEL (CALCIUM TOTAL)(Performed 01/06/2012) * CBC W AUTO DIFFERENTIAL(Performed 01/06/2012) * GLUCOSE ACCUCHECK(Performed 01/06/2012) * GLUCOSE ACCUCHECK(Performed 01/06/2012) * GLUCOSE ACCUCHECK(Performed 01/06/2012) * GLUCOSE ACCUCHECK(Performed 01/06/2012) * GLUCOSE ACCUCHECK(Performed 01/06/2012) * CULTURE BLOOD(Performed 01/06/2012) * TROPONIN I(Performed 01/06/2012) * CK + CKMB PANEL(Performed 01/06/2012) * MAGNESIUM BLOOD(Performed 01/06/2012) * BASIC METABOLIC PANEL (CALCIUM TOTAL)(Performed 01/06/2012) * PT-INR SLH(Performed 01/06/2012) * LIPASE BLOOD(Performed 01/06/2012) * AMYLASE BLOOD(Performed 01/06/2012) * CBC W AUTO DIFFERENTIAL(Performed 01/06/2012) * PHOSPHORUS BLOOD(Performed 01/06/2012) * HEMOGLOBIN A1C(Performed 01/06/2012) * CULTURE BLOOD(Performed 01/06/2012) * GLUCOSE ACCUCHECK(Performed 01/05/2012) * GLUCOSE ACCUCHECK(Performed 01/05/2012) * LACTIC ACID BLOOD(Performed 01/05/2012) * GLUCOSE ACCUCHECK(Performed 01/05/2012) * URINALYSIS REFLEX TO MICROSCOPIC NO CULTURE(Performed 01/05/2012) * URINALYSIS REFLEX TO MICROSCOPIC NO CULTURE(Performed 01/05/2012) * TROPONIN I(Performed 01/05/2012) * CK + CKMB PANEL(Performed 01/05/2012) * MAGNESIUM BLOOD(Performed 01/05/2012) * BASIC METABOLIC PANEL (CALCIUM TOTAL)(Performed 01/05/2012) * CULTURE URINE(Performed 01/05/2012) * GLUCOSE ACCUCHECK(Performed 01/05/2012) * GLUCOSE ACCUCHECK(Performed 01/05/2012) * GLUCOSE - POINT OF CARE (AMB) SLU(Performed 01/05/2012) * GLUCOSE - POINT OF CARE (AMB) SLU(Performed 01/05/2012) * GLUCOSE ACCUCHECK(Performed 01/05/2012) * GLUCOSE - POINT OF CARE (AMB) SLU(Performed 01/05/2012) * GLUCOSE - POINT OF CARE (AMB) SLU(Performed 01/05/2012) * GLUCOSE ACCUCHECK(Performed 01/05/2012) * HCG BLOOD QUALITATIVE(Performed 01/05/2012) * BLOOD GASES SAMI(Performed 01/05/2012) * GLUCOSE ACCUCHECK(Performed 01/05/2012) * HYDROXYBUTYRATE BETA(Performed 01/05/2012) * LACTIC ACID BLOOD(Performed 01/05/2012) * BASIC METABOLIC PANEL (CALCIUM TOTAL)(Performed 01/05/2012) * GLUCOSE - POINT OF CARE (AMB) SLU(Performed 01/05/2012) * GLUCOSE - POINT OF CARE (AMB) SLU(Performed 01/05/2012) * GLUCOSE ACCUCHECK(Performed 01/05/2012) * CULTURE BLOOD(Performed 01/05/2012) * CULTURE URINE(Performed 01/05/2012) * CULTURE BLOOD(Performed 01/05/2012) * XR ABD OBSTRUCTION SERIES 2VW(Performed 01/05/2012) * XR CHEST 2VW(Performed 01/05/2012) * URINALYSIS W/MICROSCOPIC NO CULTURE(Performed 01/05/2012) * CBC W AUTO DIFFERENTIAL(Performed 01/05/2012) * LIPASE BLOOD(Performed 01/05/2012) * COMPREHENSIVE METABOLIC PANEL(Performed 01/05/2012) Results * SD PUNCH BX SKIN SINGLE LESION, SD PUNCH BX SKIN EA SEP ADDL (03/19/2024 8:49 PM CDT) Narrative Aries Yi MD - 03/19/2024 8:49 PM CDT Buddy Cortez MD ? 03/19/2024 ??8:50 PM Risks, benefits and alternatives to shave biopsy were discussed with the patient. Verbal consent obtained. Location: R upper back, R upper arm Skin prep: Alcohol Anesthesia: 1% lidocaine with epinephrine Hemostasis: Aluminum Chloride Dressing and wound care discussed. Patient agrees to phone call for results and message if not available. Buddy Cortez MD Dermatology Resident PGY-3 Aries Yi MD PROCEDURE/MINOR SURG ICAL ORDERABLES * DERMATOPATHOLOGY (03/19/2024 12:00 AM CDT) Only the most recent of2 resultswithin the time period is included. Case Report Dermatopathology Report ? Case: [id number] ? Authorizing Provider: ??Aries Yi MD ? Collected: ? 03/19/2024 12:00 AM ? Ordering Location: ? [facility] - ??Received: ?03/20/2024 06:47 AM ? Dermatology ? Pathologist: ? Ambreen Lee, ? MD ? Specimens: ?? A) - Skin, right upper arm ? B) - Skin, right upper back ? 4 1:28 PM CDT DERMATOPATHOLOGY LABORATORY Final Diagnosis Specimen A. SKIN, right upper arm: SPONGIOTIC DERMATITIS WITH EOSINOPHILS (L30.8) (see microscopic description and comment) Specimen B. SKIN, right upper back: CHRONIC SPONGIOTIC DERMATITIS (L30.8) POST-INFLAMMATORY PIGMENT ALTERATION (L81.9) (see microscopic description and comment) 4 1:28 PM CDT DERMATOPATHOLOGY LABORATORY Clinical History A-B: ACD, Follicular AD, vs LP vs Mite vs other Follicular Disorder 4 1:28 PM CDT DERMATOPATHOLOGY LABORATORY Gross Description Specimen A: Received is one formalin filled container labeled with the patient's name and designated right upper arm. The specimen consists of a punch biopsy measuring 2 pieces 4x4x5,3x3x2 mm. Jar 0. Specimen B: Received is one formalin filled container labeled with the patient's name and designated right upper back. The specimen consists of a punch biopsy measuring 4x4x7 mm. Jar 0. 1:28 PM T DERMATOPATHOLOGY LABORATORY Microscopic Description Specimen A. SKIN, right upper arm: There is focal parakeratosis and spongiosis. There are focal langerhan cell microabscess in the epidermis. In the dermis there is a mainly superficial perivascular lymphohistiocytic inflammatory infiltrate with eosinophils. Grocott's methenamine silver (GMS) stain is negative for fungal elements in the sections examined. Additional deeper sections were obtained and reviewed. COMMENT: The histological differential diagnosis includes a contact dermatitis, favored given focal langerhan cell microabscess, an eczematous drug eruption, and less likely the urticarial phase of bullous pemphigoid. Specimen B. SKIN, right upper back: There is focal parakeratosis and mild spongiosis of the epidermis. In the dermis there is a mainly superficial perivascular lymphoid infiltrate. There is also abundant melanin within melanophages around the superficial vascular plexus. Grocott's methenamine silver (GMS) stain is negative for fungal elements in the sections examined. Additional deeper sections were obtained and reviewed. COMMENT: These histological findings can be seen in an eczematous dermatitis. 1:28 PM [facility] DERMATOPATHOLOGY LABORATORY Disclaimer An external and internal positive and negative controls are appropriate for the histochemical, immunohistochemical and immunofluorescence stain(s) in this case (if any), except where stated explicitly. The performance characteristics of the stain(s) cited in this report were developed and its performance characteristic determined by the Dermatopathology Laboratory at [facility], directed by Dr. Dariel Bourgeois. These tests need not be, and therefore are not, approved by the [place] Food and Drug Administration. The tests are used for clinical purposes. Billing Codes Specimen Charges Stain Charges 95266 75858 1 1 [id number] 1 1 1:28 PM T DERMATOPATHOLOGY LABORATORY Embedded Images 1:28 PM T DERMATOPATHOLOGY LABORATORY Pathology/Cytology TISSUE SPECIMEN FROM SKIN / Unknown 03/19/2024 03/20/2024 6:47 AM CDT Miscellaneous samples (specimen) TISSUE SPECIMEN FROM SKIN / Unknown 03/19/2024 03/20/2024 6:47 AM CDT Aries Yi MD LAB - PATHOLOGY/CYTO LOGY ORDERABLES DERMATOPATHOLOGY LABORATORY [facility] - Department of Dermatology [facility] [address] [place] [address], [facility] [phone] * CARDIAC EKG ORDER (11/18/2023 12:27 PM CDT) Only the most recent of2 resultswithin the time period is included. Narrative 11/18/2023 12:27 PM CDT Ordered by an unspecified provider. Scanned Document CARDIAC SERVICES ORD ERABLES * GLUCOSE - POINT OF CARE (11/16/2023 12:51 PM CDT) Only the most recent of8 resultswithin the time period is included. [facility] Glucose WB/POC 102 70 - 115 mg/dL 11/16/2023 2:08 PM CDT [facility] Specimen Type Venous 11/16/2023 2:08 PM CDT [facility] Blood BLOOD SPECIMEN / Unknown 11/16/2023 12:51 PM CDT 11/16/2023 2:08 PM CDT Talat Mccullough MD LAB - POINT OF CARE ORDERABLES [facility] [address] [place] [address], [facility] [phone] * (ABNORMAL) CBC W/O DIFFERENTIAL (11/16/2023 2:58 AM CDT) Only the most recent of2 resultswithin the time period is included. [facility] WBC 6.5 4.0 - 10.7 x10E9/L 11/16/2023 4:49 AM CDT [facility] RBC Count 3.69(L) 3.90 - 5.20 x10E12/L 11/16/2023 4:49 AM CDT [facility] Hemoglobin 10.3(L) 11.9 - 15.8 g/dL 11/16/2023 4:49 AM CDT [facility] Hematocrit 32.0(L) 34.8 - 46.1 % 11/16/2023 4:49 AM [facility] MCV 86.7 80.0 - 98.0 fL 11/16/2023 4:49 AM [facility] MCH 27.9 26.7 - 33.6 pg 11/16/2023 4:49 AM [facility] MCHC 32.2 31.7 - 36.3 g/dL 11/16/2023 4:49 AM [facility] RDW-CV 12.1 11.3 - 14.8 % 11/16/2023 4:49 AM [facility] Platelet Count 310 150 - 420 x10E9/L 11/16/2023 4:49 AM [facility] MPV 11.1 7.8 - 11.4 fL 11/16/2023 4:49 AM [facility] Blood BLOOD SPECIMEN / Unknown Lab Venipuncture / Unknown 11/16/2023 2:58 AM CDT 11/16/2023 4:31 AM CDT Yevgeniy Whiting MD LAB - HEMATOLOGY ORD ERABLES [address] [address], [facility] [phone] * TSH REFLEX FREE T4 (11/16/2023 2:57 AM CDT) TSH 0.473 0.350 - 4.940 uIU/mL 11/16/2023 5:26 AM CDT [facility] Blood BLOOD SPECIMEN / Unknown Lab Venipuncture / Unknown 11/16/2023 2:57 AM CDT 11/16/2023 4:31 AM CDT Liban Lujan DO LAB - CHEMISTRY OR DERABLES [address] [address], [place] [phone] * (ABNORMAL) RENAL FUNCTION PANEL (11/16/2023 2:57 AM CDT) BUN 20 7 - 26 mg/dL 11/16/2023 5:16 AM [facility] Creatinine 0.89 0.56 - 0.96 mg/dL 11/16/2023 5:16 AM [facility] Sodium 135(L) 136 - 145 mmol/L 11/16/2023 5:16 AM [facility] Potassium 4.4 3.5 - 4.5 mmol/L 11/16/2023 5:16 AM [facility] Chloride 107 98 - 107 mmol/L 11/16/2023 5:16 AM [facility] CO2 21(L) 22 - 29 mmol/L 11/16/2023 5:16 AM [facility] Glucose 356(H) 70 - 115 mg/dL 11/16/2023 5:16 AM [facility] Albumin 2.7(L) 3.4 - 5.0 g/dL 11/16/2023 5:16 AM [facility] Calcium 9.3 8.4 - 10.2 mg/dL 11/16/2023 5:16 AM [facility] Phosphorus 3.2 2.9 - 5.1 mg/dL 11/16/2023 5:16 AM [facility] Anion Gap 7 6 - 16 11/16/2023 5:16 AM [facility] BUN/Creatinine Ratio 22 7 - 23 11/16/2023 5:16 AM [facility] Osmolality Calculated 297(H) 275 - 295 mOsm/kg 11/16/2023 5:16 AM [facility] eGFR by CKD-EPI 81(L) >=90 mL/min/1.7 3 m2 11/16/2023 5:16 AM [facility] Blood BLOOD SPECIMEN / Unknown Lab Venipuncture / Unknown 11/16/2023 2:57 AM CDT 11/16/2023 4:31 AM T Liban Lujan DO LAB - CHEMISTRY OR DERABLES [facility] [address] [place] [address] [phone] * ECHO COMPLETE W CONTRAST (11/15/2023 8:12 AM CDT) BSA [id number] m2 SSM CV FUJI PACS LV biplane EF 66 54 - 74 % SSM CV FUJI PACS LV A2C EF 67 52 - 76 % SSM CV FUJ I PACS LV A4C EF 68 46 - 78 % SSM CV FUJ I PACS LV stroke vol BP 100.3 mL SSM CV FUJI PACS LV stroke vol BP index 51.5 mL/m2 SSM CV FUJI PACS LVOT stroke vol 99.95 mL SSM CV FUJI PACS LVOT stroke vol index 51.30 mL/m2 SSM CV FUJI PACS LV stroke vol 2D teich 81.866 ml SSM CV FUJI PACS LV Stroke Index 2D Teich 42.02 mL/m2 SSM CV FUJI PACS LV stroke vol index A4C MOD 100.375 ml/m2 SSM CV FUJI PACS LVIDd 5.16 3.8 - 5.2 cm SSM CV FUJI PACS LVIDs 3.34 2.2 - 3.5 cm SSM CV FUJI PACS IVSd 2D 1.341 0.6 - 0.9 cm SSM CV FUJI PACS LVPWd 1.42 0.6 - 0.9 cm SSM CV FUJI PACS Fractional Shortening 2D 26 28 - 44 % SSM CV FUJI PACS LV ESV BP 50.532 14 - 42 mL SSM CV FUJI PACS LV ESV index BP 25.9 8 - 24 mL/m2 SSM CV FUJI PACS LV ESV A2C 46.507 10 - 54 mL SSM CV FUJI PACS LV ESV index A2C 23.87 6 - 30 mL/m2 SSM CV FUJI PACS LV EDV BP 150.784 46 - 106 mL SSM CV FUJI PACS LV ESV A4C 50.862 12 - 60 mL SSM CV FUJI PACS LV ESV index A4C 26.11 7 - 35 mL/m2 SSM CV FUJI PACS LV EDV index BP 77.4 29 - 61 mL/m2 SSM CV FUJI PACS LV EDV A2C 155.874 41 - 133 mL SSM CV FUJI PACS LV EDV index A2C 80.00 26 - 74 mL/m2 SSM CV FUJI PACS LV EDV A4C 146.881 mL SSM CV FU JI PACS LV ESV 2D 45.414 14 - 42 mL SSM CV FUJI PACS LV EDV index A4C 75.39 30 - 82 mL/m2 SSM CV FUJI PACS LV ESV index 2D 23.31 8 - 24 mL/m2 SSM CV FUJI PACS LV EDV 2D 127.28 46 - 106 mL SSM CV FUJI PACS LV EDV index 2D 65.33 29 - 61 mL/m2 SSM CV FUJI PACS LVOT diam 2.3 cm SSM CV [facility] I PACS LVOT area 4.08 cm2 SSM CV [facility] I PACS LV RWT 0.549 SSM CV [facility] I PACS LV Figueredo A2C 8.986 cm SSM CV F UJI PACS LV Figueredo A4C 8.887 cm SSM CV F UJI PACS IVS/LVPW 0.946 SSM CV [facility] I PACS LV mass 2D 299.487 66 - 150 g SSM CV FUJI PACS LV mass index 2D 153.71 44 - 88 g/m2 [facility] MV E pk mraanda 71.137 cm/s SSM CV F UJI PACS MV avg E/e' ratio 14.45 SS M CV [facility] A pk maranda 90.276 cm/s SSM CV F UJI PACS MV E A ratio 0.79 [facility] MV E' lateral maranda 6.799 cm/s SS M CV FUJI PACS MV DT 234 ms SSM CV [facility] I PACS MV E' septal maranda 3.861 cm/s [facility] MV E/e' septal 18.427 SSM C [facility] MV E/e' lateral 10.463 [facility] LA vol BP 96.531 mL SSM CV [facility] I PACS LVOT pk maranda 1.19 m/s SSM CV F UJI PACS LVOT mn maranda 0.76 m/s SSM CV F UJI PACS LVOT mn grad 2.7 mmHg SSM CV FUJI PACS LVOT Cardiac Output 5.557 l/min SSM CV FUJI PACS LVOT Cardiac Index 2.85 l/min/m2 SSM CV FUJI PACS Qp:Qs 0.69 SSM CV FUJ I PACS LA vol index 49.5 16 - 34 mL/m2 SSM CV FUJI PACS LA size 3.857 2.7 - 3.8 cm SSM CV FUJI PACS LA vol BP A-L 99.835 mL SSM CV FUJI PACS RV-figueredo basal diam 3.2 2.5 - 4.1 cm SSM CV FUJI PACS RV-figueredo longitudinal diam 6.6 5.9 - 8.3 cm SSM CV FUJI PACS RVIDd 2.8 cm SSM CV FUJ I PACS RVOT diam Doppler 2.335 cm SS M CV FUJI PACS RVOT area Doppler 4.28 8 - 20 cm2 SSM CV FUJI PACS RVOT stroke vol 68.62 cm3 SSM CV FUJI PACS RVOT VTI 16.028 cm SSM CV FUJ I PACS TV S' maranda 12.39 cm/s SSM CV FUJ I PACS TAPSE 1.998 1.7 cm SSM CV [facility] I PACS RVOT pk maranda 0.79 m/s SSM CV F UJI PACS RA area 17.049 cm2 SSM CV [facility] I PACS AV mn grad 5 mmHg SSM CV FU JI PACS AV pk grad 11 mmHg SSM CV FU JI PACS AV mn maranda 1.05 m/s SSM CV [facility] I PACS AV pk maranda 1.64 m/s SSM CV [facility] I PACS AV VTI 31.557 cm SSM CV [facility] I PACS LVOT pk grad 5.653 mmHg SSM CV FUJI PACS LVOT VTI 24.49 cm SSM CV [facility] I PACS AV area cont VTI 3.2 cm2 SSM CV FUJI PACS AV area pk maranda 3.0 cm2 [facility]SM [facility] AV Doppler maranda index pk maranda 0.724 SSM CV FUJI PACS Dimensionless Index 0.776 SSM CV FUJI PACS AV PHT 412 ms SSM CV FUJ I PACS AV pk maranda regurg 438.49 cm/s SSM CV FUJI PACS MV mn grad 2 mmHg SSM CV FU JI PACS MV pk grad 3 mmHg SSM CV FU JI PACS MV mn maranda 0.62 m/s SSM CV FUJ I PACS MV pk maranda 100.488 cm/s SSM CV FUJ I PACS MV area cont eq 4.35 cm2 SSM CV FUJI PACS MV VTI 22.958 cm SSM CV FUJ I PACS MV decel slope 274.828 cm/s2 SSM C V FUJI PACS RVOT mn grad 1 mmHg SSM CV FUJI PACS RVOT pk grad 2 mmHg SSM CV FUJI PACS PV area cont eq 3.4 cm2 SSM CV FUJI PACS PV mn grad 2 mmHg SSM CV FU JI PACS PV pk maranda 98.699 cm/s SSM CV FUJ I PACS PV pk grad 4 mmHg SSM CV FU JI PACS PV VTI 20.214 cm SSM CV FUJ I PACS PV mn maranda 73.167 cm/s SSM CV FUJ I PACS Ascending aorta 2.84 cm SSM CV FUJI PACS IVC size 1.9 cm SSM CV FUJ I PACS RV stroke vol 68.58 mL SSM CV FUJI PACS LA ESV A4C MOD Index 49 ml/m2 SSM CV FUJI PACS LA ESV A2C MOD Index 45 ml/m2 SSM CV FUJI PACS [id number] 6.551 cm SSM CV FUJ I PACS [id number] 7.029 cm SSM CV FUJ I PACS Prox Asc Ao Diameter Index 1.458 cm SSM CV FUJI PACS AV decel slope regurg 309.005 cm/s2 SSM CV FUJI PACS LVIDs index 1.71 1.3 - 2.1 cm/m2 SSM CV FUJI PACS LV LVIDd index 2.65 2.3 - 3.1 cm/m2 SSM CV FUJI PACS RV wall thickness 0.6 0.1 - 0.5 cm SSM CV FUJI PACS AV VC width 0.4 cm SSM CV F UJI PACS Sinus of Valsalva 2.58 cm SS M CV FUJI PACS Descending aorta 2.31 cm SSM CV FUJI PACS ST junction 2.662 cm SSM CV F UJI PACS Sinus of valsalva index 1.32 cm/m2 SSM CV FUJI PACS ST junction index 1.37 cm/m2 SS M CV FUJI PACS Posterior dimension 0.0 cm SSM CV FUJI PACS Aortic annulus 2.562 cm SSM C V FUJI PACS EF 2D Bullet 62.07 % SSM CV FUJI PACS MV lat S' maranda 6.704 cm/s SSM CV FUJI PACS AV envelope time 301 ms SSM CV FUJI PACS LVOT envelope time 324 ms SSM CV FUJI PACS LV EDV A/L A4C 156.446 mL SSM C V FUJI PACS LV EDV index A/L A4C 80.30 mL/m2 SSM CV FUJI PACS LV Area Figueredo A2C 41.152 cm2 SSM CV FUJI PACS LV Area Figueredo A4C 40.443 cm2 SSM CV FUJI PACS LV IVRT 65 ms SSM CV FUJ I PACS MV A duration 126 ms SSM CV FUJI PACS TR pk maranda 261.2 cm/s SSM CV FUJ I PACS P vein A maranda 26.0 cm/s SSM CV FUJI PACS P vein A duration 162 msec SS M CV FUJI PACS P vein S/D ratio 1.49 SSM CV FUJI PACS MV septal a' maranda 9.318 cm/s SSM CV FUJI PACS MV lat a' maranda 10.297 cm/s SSM CV FUJI PACS LA area A4C 26.815 20 cm2 SSM CV F UJI PACS RV-figueredo mid diam 3.1 1.9 - 3.5 cm SSM CV FUJI PACS RV KIKA 8.007 3 - 11 cm2 SSM CV FUJI PACS RV KIKA index 4.11 1.6 - 6.4 cm2/m2 SSM CV FUJI PACS RV LIANA 20.1 cm2 SSM CV FUJ I PACS RV LIANA index 10.32 4.5 - 11.5 cm2/m2 SSM CV FUJI PACS RV FAC 60.17 35 % SSM CV FUJ I PACS RVOT envelope time 291 ms SSM CV FUJI PACS PV envelope time 276 ms SSM CV FUJI PACS AV RF cont eq 31 % SSM CV FUJI PACS MV RVol cont eq 0 mL SSM CV FUJI PACS MV PHT 71 ms SSM CV FUJ I PACS MV area PHT 3.10 cm2 SSM CV F UJI PACS MV area planimetry 4.69 cm2 SSM CV FUJI PACS MV VTI AT ANNULUS PEAK VELOCITY 96.284 cm/s SSM CV FUJI PACS MV VTI AT ANNULUS PEAK GRADIENT 3.708 mmHg SSM CV FUJI PACS MV VTI AT ANNULUS MEAN VELOCITY 51.602 cm/s SSM CV FUJI PACS MV VTI AT ANNULUS MEAN GRADIENT 1.244 mmHg SSM CV FUJI PACS MV VTI AT ANNULUS EJECTION TIME 0.251 s SSM CV FUJI PACS MV area index 2.41 cm2/m2 SSM CV FUJI PACS MV regurgitant SV 1 69.00 cm3 SSM CV FUJI PACS TV annulus 3.00 cm SSM CV FU JI PACS TR VTI 59.0 cm SSM CV FUJ I PACS TR pk grad 27 mmHg SSM CV FU JI PACS TV mn maranda 41.582 m/s SSM CV FUJ I PACS TV pk maranda 0.70863 cm/s SSM CV FUJ I PACS TV mn grad 1 mmHg SSM CV FU JI PACS TV pk grad 2 mmHg SSM CV FU JI PACS TV area PHT 7.05 cm2 SSM CV F UJI PACS TV area continuity 5.10 cm2 SSM CV FUJI PACS TV VTI 13.453 cm SSM CV FUJ I PACS TV PHT 31 ms SSM CV FUJ I PACS TV DT 0.108 ms SSM CV FUJ I PACS Aortic arch 2.85 cm SSM CV F UJI PACS IVC size sniff 0.473 cm SSM C V FUJI PACS AV Rvol cont eq 30.95 mL SSM CV FUJI PACS AV aliasing velocity 62 m/s SSM CV FUJI PACS AV radius PISA 0.44 cm SSM C V FUJI PACS MV annulus diameter 3.0 cm SSM CV FUJI PACS AR VTI 179.193 SSM CV FUJ I PACS LA AREA (2C) 24.254 SSM CV FUJI PACS RA area length vol 49.0 mL SSM CV FUJI PACS RA vol index 25.15 mL/m2 SSM CV FUJI PACS MV EOA 4.7 cm2 SSM CV FUJ I PACS MV EOA index 2.41 cm2/m2 SSM CV FUJI PACS TV annular diam (A-P) 2.90 cm SSM CV FUJI PACS TV annular diam (M-L) 3.00 cm SSM CV FUJI PACS TV SV 69.00 cm3 SSM CV FUJ I PACS TV Rvol 1.0 mL SSM CV FUJ I PACS TV RF 1 % SSM CV FUJ I PACS sPAP 30.0 mmHg SSM CV FUJ I PACS RVSP 30.0 mmHg SSM CV FUJ I PACS RAP 3.0 mmHg SSM CV FUJ I PACS TR mn grad 17 mmHg SSM CV FU JI PACS TV area 5.5 cm2 SSM CV FUJ I PACS Abdominal aorta 1.9 cm SSM CV FUJI PACS Anatomical Region Laterality Modality Ultrasound Narrative 11/15/2023 1:02 PM CDT ?Left??Ventricle: Left ventricle is mildly dilated. LVIDd is 4.82 cm. LVIDd index is 2.48 cm/m2. EDV Index BP is 77.4 mL/m2. ESV Index BP is 25.9 mL/m2. Moderately increased wall thickness. LVPWd is 1.42 cm. Moderately increased ventricular mass. Mass index 2D is 138.49 g/m2. RWT 0.55.Findings consistent with moderate concentric hypertrophy. Normal systolic function with a visually estimated EF of 65 - 70%. EF by 2D Motta biplane is 66%. Normal wall motion. Septal motion is normal. Grade II diastolic dysfunction with elevated left atrial pressure. Elevated mean left atrial pressure. Tissue Doppler velocity is reduced. MV peak E velocity is 71.137 cm/s. MV peak A velocity is 90.276 cm/s. E/A ratio is 0.79. MV e' lateral velocity is 6.799 cm/s. MV e' septal velocity is 3.861 cm/s. Average e/e' ratio > 14. ?Aortic Valve: Valve structure is normal. Mildly thickened leaflets. No restricted motion. Moderate regurgitation. AV regurgitant volume by continuity equation/BERNARD is 31 mL with . EROA 0.17 cxm2 and fraction 31%. Aortic regurgitation pressure half time (PHT) is 412 ms. Moderate diastolic flow reversal noted in proximal descending aorta. No stenosis. AV mean gradient is 5 mmHg. AV peak gradient is 11 mmHg. AV peak velocity is 1.64 m/s. AV area by continuity VTI is 3.2 cm2. AV area by peak velocity is 3.0 cm2. Valve area index 1.6 cxm2/M2. Stroke volume indexs 51 ml/M2. Cardiac index after correction for AR is 3.1 L/min/M2. . ?Right Ventricle: Right ventricle size is normal. Normal free wall thickness. RV basal diameter is 3.2 cm. RV mid diameter is 3.1 cm. RV longitudinal diameter is 6.6 cm. RVIDd is 2.8 cm. RV KIKA index is 4.11 cm2/m2. RV LIANA index is 10.32 cm2/m2. RV wall thickness is 0.6 cm. Normal wall motion. Normal systolic function. TAPSE is 1.998 cm. Fractional area change (FAC) is 60.17%. No mass present. ?Left Atrium: Left atrium is moderately dilated. Left atrium volume index is 49.5 mL/m2. The interatrial septum appears normal with no evidence of a shunt by color flow Doppler. Normal sized pulmonary veins. Normal flow patterns and systolic dominance in the pulmonary veins. ?Mitral Valve: Valve structure is normal. No leaflet thickening. No restricted motion. No regurgitation. No stenosis. ?Tricuspid Valve: Valve structure is normal. No leaflet thickening. Trace regurgitation. The pulmonary artery systolic pressure is normal (under 35 mmHg). TV regurgitant fraction is 1%. TR VTI is 59.0 cm. TR peak velocity is 261.2 cm/s. Estimated sPAP is 30.0 mmHg. Estimated RVSP is 30.0 mmHg. RAP is 3.0 mmHg. Mean Pa pressure of 18-20 mmHg. PVR 1.8 Wood units. No stenosis. ?Aorta: Normal sized annulus, sinus of Valsalva (aortic root), ascending aorta, aortic arch, descending aorta and abdominal aorta. Abdominal aorta is 1.9 cm. Sinotubular junction indexed to BSA is 1.37 cm/m2. Sinus of Valsalva indexed to BSA is 1.32 cm/m2. ?: No pericardial effusion. Findings consistent with effects of HTN and mild aortic sclerosis with moderate AR. ?? Other findings as listed. ?? Left Ventricle Left ventricle is mildly dilated. LVIDd is 4.82 cm. LVIDd index is 2.48 cm/m2. EDV Index BP is 77.4 mL/m2. ESV Index BP is 25.9 mL/m2. Moderately increased wall thickness. LVPWd is 1.42 cm. Moderately increased ventricular mass. Mass index 2D is 138.49 g/m2. RWT 0.55.Findings consistent with moderate concentric hypertrophy. Normal systolic function with a visually estimated EF of 65 - 70%. EF by 2D Motta biplane is 66%. Normal wall motion. Septal motion is normal. Grade II diastolic dysfunction with elevated left atrial pressure. Elevated mean left atrial pressure. Tissue Doppler velocity is reduced. MV peak E velocity is 71.137 cm/s. MV peak A velocity is 90.276 cm/s. E/A ratio is 0.79. MV e' lateral velocity is 6.799 cm/s. MV e' septal velocity is 3.861 cm/s. Average e/e' ratio > 14. Right Ventricle Right ventricle size is normal. Normal free wall thickness. RV basal diameter is 3.2 cm. RV mid diameter is 3.1 cm. RV longitudinal diameter is 6.6 cm. RVIDd is 2.8 cm. RV KIKA index is 4.11 cm2/m2. RV LIANA index is 10.32 cm2/m2. RV wall thickness is 0.6 cm. Normal wall motion. Normal systolic function. TAPSE is 1.998 cm. Fractional area change (FAC) is 60.17%. No mass present. Left Atrium Left atrium is moderately dilated. Left atrium volume index is 49.5 mL/m2. The interatrial septum appears normal with no evidence of a shunt by color flow Doppler. Normal sized pulmonary veins. Normal flow patterns and systolic dominance in the pulmonary veins. No mass present. Right Atrium Right atrium size is normal. RA volume index is 25.15 mL/m2. No mass present. IVC/SVC IVC diameter is less than or equal to 21 mm and decreases greater than 50% during inspiration; therefore the estimated right atrial pressure is normal (~3 mmHg). IVC is normal in size. SVC was not assessed. Mitral Valve Valve structure is normal. No leaflet thickening. No restricted motion. No regurgitation. No stenosis. MV mean gradient is 2 mmHg. MV PHT is 71 ms. MV area by PHT is 3.10 cm2. MV area by continuity equation is 4.35 cm2. MV area by planimetry is 4.69 cm2. MV EOA is 4.7 cm2. MV EOA index is 2.41 cm2/m2. Tricuspid Valve Valve structure is normal. No leaflet thickening. Trace regurgitation. The pulmonary artery systolic pressure is normal (under 35 mmHg). TV regurgitant fraction is 1%. TR VTI is 59.0 cm. TR peak velocity is 261.2 cm/s. Estimated sPAP is 30.0 mmHg. Estimated RVSP is 30.0 mmHg. RAP is 3.0 mmHg. Mean Pa pressure of 18-20 mmHg. PVR 1.8 Wood units. No stenosis. TV mean gradient is 1 mmHg. TV area is 5.5 cm2. Aortic Valve Valve structure is normal. Mildly thickened leaflets. No restricted motion. Moderate regurgitation. AV regurgitant volume by continuity equation/BERNARD is 31 mL with . EROA 0.17 cxm2 and fraction 31%. Aortic regurgitation pressure half time (PHT) is 412 ms. Moderate diastolic flow reversal noted in proximal descending aorta. No stenosis. AV mean gradient is 5 mmHg. AV peak gradient is 11 mmHg. AV peak velocity is 1.64 m/s. AV area by continuity VTI is 3.2 cm2. AV area by peak velocity is 3.0 cm2. Valve area index 1.6 cxm2/M2. Stroke volume indexs 51 ml/M2. Cardiac index after correction for AR is 3.1 L/min/M2. . Pulmonic Valve Valve structure is normal. No cusp thickening. No restricted motion. No regurgitation. No stenosis. PV mean gradient is 2 mmHg. PV area by continuity equation is 3.4 cm2. Ascending Aorta Normal sized annulus, sinus of Valsalva (aortic root), ascending aorta, aortic arch, descending aorta and abdominal aorta. Abdominal aorta is 1.9 cm. Sinotubular junction indexed to BSA is 1.37 cm/m2. Sinus of Valsalva indexed to BSA is 1.32 cm/m2. Pericardium No pericardial effusion. Study Details Study quality was adequate. A complete 2D, color Doppler, spectral Doppler and M-mode echocardiogram was performed. The apical, parasternal, subcostal and suprasternal views were obtained. Definity ultrasound enhancing agent used. Patient exhibited sinus rhythm. Prior Study No prior study available for comparison. Wall Scoring Baseline Score Index: 1.00 The left ventricular wall motion is normal. Procedure Note Osmar Vivas MD - 11/15/2023 ? ? Left??Ventricle: Left ventricle is mildly dilated. LVIDd is 4.82 cm.LVIDd index is 2.48 cm/m2. EDV Index BP is 77.4 mL/m2. ESV Index BP is25.9 mL/m2. Moderately increased wall thickness. LVPWd is 1.42 cm.Moderately increased ventricular mass. Mass index 2D is 138.49 g/m2. RWT0.55.Findings consistent with moderate concentric hypertrophy. Normalsystolic function with a visually estimated EF of 65 - 70%. EF by 2DSimpson biplane is 66%. Normal wall motion. Septal motion is normal. GradeII diastolic dysfunction with elevated left atrial pressure. Elevated meanleft atrial pressure. Tissue Doppler velocity is reduced. MV peak Evelocity is 71.137 cm/s. MV peak A velocity is 90.276 cm/s. E/A ratio is0.79. MV e' lateral velocity is 6.799 cm/s. MV e' septal velocity is 3.861cm/s. Average e/e' ratio > 14. ? ? Aortic Valve: Valve structure is normal. Mildly thickened leaflets. Norestricted motion. Moderate regurgitation. AV regurgitant volume bycontinuity equation/BERNARD is 31 mL with . EROA 0.17 cxm2 and fraction 31%.Aortic regurgitation pressure half time (PHT) is 412 ms. Moderatediastolic flow reversal noted in proximal descending aorta. No stenosis.AV mean gradient is 5 mmHg. AV peak gradient is 11 mmHg. AV peak velocityis 1.64 m/s. AV area by continuity VTI is 3.2 cm2. AV area by peakvelocity is 3.0 cm2. Valve area index 1.6 cxm2/M2. Stroke volume indexs 51ml/M2. Cardiac index after correction for AR is 3.1 L/min/M2. . ? ? Right Ventricle: Right ventricle size is normal. Normal free wallthickness. RV basal diameter is 3.2 cm. RV mid diameter is 3.1 cm. RVlongitudinal diameter is 6.6 cm. RVIDd is 2.8 cm. RV KIKA index is 4.11cm2/m2. RV LIANA index is 10.32 cm2/m2. RV wall thickness is 0.6 cm. Normalwall motion. Normal systolic function. TAPSE is 1.998 cm. Fractional areachange (FAC) is 60.17%. No mass present. ? ? Left Atrium: Left atrium is moderately dilated. Left atrium volumeindex is 49.5 mL/m2. The interatrial septum appears normal with noevidence of a shunt by color flow Doppler. Normal sized pulmonary veins.Normal flow patterns and systolic dominance in the pulmonary veins. ? ? Mitral Valve: Valve structure is normal. No leaflet thickening. Norestricted motion. No regurgitation. No stenosis. ? ? Tricuspid Valve: Valve structure is normal. No leaflet thickening.Trace regurgitation. The pulmonary artery systolic pressure is normal(under 35 mmHg). TV regurgitant fraction is 1%. TR VTI is 59.0 cm. TR peakvelocity is 261.2 cm/s. Estimated sPAP is 30.0 mmHg. Estimated RVSP is30.0 mmHg. RAP is 3.0 mmHg. Mean Pa pressure of 18-20 mmHg. PVR 1.8 Woodunits. No stenosis. ? ? Aorta: Normal sized annulus, sinus of Valsalva (aortic root), ascendingaorta, aortic arch, descending aorta and abdominal aorta. Abdominal aortais 1.9 cm. Sinotubular junction indexed to BSA is 1.37 cm/m2. Sinus ofValsalva indexed to BSA is 1.32 cm/m2. ? ? : No pericardial effusion. Findings consistent with effects of HTN and mild aortic sclerosis withmoderate AR. Other findings as listed. Yevgeniy Whiting MD [facility] * IMMUNOFLUORESCENT STUDY DERM (11/15/2023 3:33 AM CDT) Case Report Dermatopathol ogy Report ? Case: [id number] ? Authorizing Provider: ??Aries Yi MD ? Collected: ? 11/15/2023 03:33 AM ? Ordering Location: ? [facility] - ??Received: ?11/18/2023 06:14 AM ? Dermatology ? Pathologist: ? Asya Bautista MD ? Specimen: ?Skin, right upper back ? 4 10:52 AM CDT DERMATOPATHOLOGY LABORATORY Final Diagnosis Specimen A. SKIN, right upper back: TRACE LINEAR GRANULAR BASEMENT MEMBRANE ZONE POSITIVITY WITH C3 (L98.9) (see microscopic description and comment) (see fixed tissue results) ([id number]) 4 10:52 AM CDT DERMATOPATHOLOGY LABORATORY Direct Immunofluorescence Report - Specimen A Specimen A IgA IgM IgG C3 CollV Fibrinogen Epidermis Negative Negative Negative Negative Negative Negative Basement Membrane Negative Trace linear granular Negative Trace Linear granular 2+ Negative Vessels Negative Negative Negative Negative 2+ Negative Interstitium Negative Negative Negative Negative Negative Non specific 4 10:52 AM CDT DERMATOPATHOLOGY LABORATORY Clinical History ACD vs AD vs urticarial vasculitis vs other granulomatous 4 10:52 AM CDT DERMATOPATHOLOGY LABORATORY Gross Description Specimen A: Received is one Juanjose's media filled container labeled with the patient's name and designated right upper back. The specimen consists of a punch biopsy measuring 4x2x3 mm. The specimen is submitted in whole for direct immunofluores cence testing. 10:52 AM CDT DERMATOPATHOLOGY LABORATORY Microscopic Description Specimen A. SKIN, right upper back: Controls were run in parallel. There is trace linear granular C3 at the dermal-epider mal junction. Staining is negative with IgA, IgM, and IgG. Collagen IV stains the basement membrane zone and vessels. Fibrinogen shows non-specific staining. See fixed tissue results. COMMENT: This is a common and non-specific staining pattern, which can be seen in chronically sun exposed skin. 10:52 AM CDT DERMATOPATHOLOGY LABORATORY Disclaimer An external and internal positive and negative controls are appropriate for the histochemical , immunohistoch emical and immunofluores cence stain(s) in this case (if any), except where stated explicitly. The performance characteristi cs of the stain(s) cited in this report were developed and its performance characteristi c determined by the Dermatopathol ogy Laboratory at [facility], directed by Dr. Dariel Bourgeois. These tests need not be, and therefore are not, approved by the [place] Food and Drug Administratio n. The tests are used for clinical purposes. Billing Codes Specimen Charges Stain Charges 35896 [id number] 1 1 1 1 1 1 10:52 AM CDT DERMATOPATHOLOGY LABORATORY Embedded Images 10:52 AM CDT DERMATOPATHOLOGY LABORATORY Pathology/Cytolo gy TISSUE SPECIMEN FROM SKIN / Unknown 11/15/2023 3:33 AM CDT 11/18/2023 6:14 AM CDT Aries Yi MD LAB - PATHOLOGY/CYTO LOGY ORDERABLES DERMATOPATHOLOGY LABORATORY [facility] - Department of Dermatology [address], [address] [phone] * (ABNORMAL) HEMOGLOBIN A1C (11/15/2023 3:06 AM CDT) Only the most recent of5 resultswithin the time period is included. Hemoglobin A1c 7.5(H) <=5.6 % 11/15/2023 8:41 AM T [facility] Estimated Average Glucose 169 mg/dL 11/15/2023 8:41 AM T [facility] Comment: HbA1c Interpretation: Normal : < 5.7% Pre-diabetes: 5.7-6.4% Diabetes: Equal to or greater than 6.5% Test results diagnostic of diabetes should be repeated for confirmation. Treatment target values recommended by ADA and other clinical organizations should be used to evaluate metabolic control in patients. Reference: [place] [employer], Standards of Care in Diabetes -2020 In patients 70 years and older consider HbA1c target range of 7.0-7.5% (Reference: Franklin Long et al. JAMDA. 2012) The Sebia assay for the measurement of HbA1c is a National Glycohemoglobin Standardization Program (NGSP) certified method. Blood BLOOD SPECIMEN / Unknown Venipuncture / Unknown 11/15/2023 3:06 AM CDT 11/15/2023 3:16 AM CDT Yevgeniy Whiting MD LAB - CHEMISTRY MEKA VASQUEZ [facility] Organization Address City/State/ZIP Co de Phone Number [facility] [address] [place] [phone], [facility] [phone] * (ABNORMAL) BASIC METABOLIC PANEL (CALCIUM TOTAL) (11/15/2023 3:06 AM CDT) Only the most recent of21 resultswithin the time period is included. Pathologist [facility] BUN 22 7 - 26 mg/dL 11/15/2023 3:46 AM CDT [facility] Creatinine 0.82 0.56 - 0.96 mg/dL 11/15/2023 3:46 AM T [facility] Sodium 140 136 - 145 mmol/L 11/15/2023 3:46 AM T [facility] Potassium 4.1 3.5 - 4.5 mmol/L 11/15/2023 3:46 AM T [facility] Chloride 113(H) 98 - 107 mmol/L 11/15/2023 3:46 AM [facility] CO2 19(L) 22 - 29 mmol/L 11/15/2023 3:46 AM [facility] Glucose 107 70 - 115 mg/dL 11/15/2023 3:46 AM [facility] Calcium 8.2(L) 8.4 - 10.2 mg/dL 11/15/2023 3:46 AM [facility] Anion Gap 8 6 - 16 11/15/2023 3:46 AM [facility] BUN/Creatinine Ratio 27(H) 7 - 23 11/15/2023 3:46 AM [facility] Osmolality Calculated 294 275 - 295 mOsm/kg 11/15/2023 3:46 AM [facility] eGFR by CKD-EPI 90 >=90 mL/min/1.7 3 m2 11/15/2023 3:46 AM [facility] Blood BLOOD SPECIMEN / Unknown Venipuncture / Unknown 11/15/2023 3:06 AM CDT 11/15/2023 3:16 AM CDT Yevgeniy Whiting MD LAB - CHEMISTRY ORDDione VASQUEZ Performing Organization Address City/[facility]/ZIP Co de Phone Number [address] [phone], [facility] [phone] * (ABNORMAL) PHOSPHORUS BLOOD (11/15/2023 3:06 AM CDT) Only the most recent of9 resultswithin the time period is included. Phosphorus 2.8(L) 2.9 - 5.1 mg/dL 11/15/2023 3:46 AM [facility] Blood BLOOD SPECIMEN / Unknown Venipuncture / Unknown 11/15/2023 3:06 AM CDT 11/15/2023 3:16 AM CDT Yevgeniy Whiting MD LAB - CHEMISTRY MEKA VASQUEZ [address] [address], [place] [phone] * MAGNESIUM BLOOD (11/15/2023 3:06 AM CDT) Only the most recent of11 resultswithin the time period is included. Pathologist [facility] Magnesium 1.8 1.6 - 2.6 mg/dL 11/15/2023 3:46 AM CDT [facility] Blood BLOOD SPECIMEN / Unknown Venipuncture / Unknown 11/15/2023 3:06 AM CDT 11/15/2023 3:16 AM CDT Yevgeniy Whiting MD LAB - CHEMISTRY MEKA VASQUEZ Performing Organization Address City/[facility]/ZIP Co de Phone Number [address] [phone], [facility] [phone] * (ABNORMAL) TROPONIN-I HIGH SENSITIVE REFLEX 1HOUR (11/14/2023 9:09 PM CDT) Only the most recent of2 resultswithin the time period is included. [facility] Troponin I High Sensitive 20(H) <=14 ng/L 11/14/2023 9:51 PM CDT [facility] Delta Troponin I HS 11/14/2023 9:51 PM CDT [facility] Comment:Delta value intentio antonio not calculated. Baseline to 1 hour specimen collection interval exceeded. Blood BLOOD SPECIMEN / Unknown Venipuncture / Unknown 11/14/2023 9:09 PM CDT 11/14/2023 9:16 PM CDT Yobany Gloria PA-C LAB - CHEM ISTRY ORDERABLES [address] [address], [place] [phone] * (ABNORMAL) TROPONIN-I HIGH SENSITIVE BASELINE + 1HR (11/14/2023 5:51 PM CDT) [facility] Troponin I High Sensitive 23(H) <=14 ng/L 11/14/2023 6:28 PM CDT [facility] Blood BLOOD SPECIMEN / Unknown Venipuncture / Unknown 11/14/2023 5:51 PM CDT 11/14/2023 5:53 PM CDT Yobany Gloria PA-C LAB - CHEM ISTRY ORDERABLES [facility] [address] [place] [address], [facility] [phone] * (ABNORMAL) CBC W AUTO DIFFERENTIAL (11/14/2023 5:51 PM CDT) Only the most recent of28 resultswithin the time period is included. [facility] WBC 9.1 4.0 - 10.7 x10E9/L 11/14/2023 5:59 PM [facility] RBC Count 4.55 3.90 - 5.20 x10E12/L 11/14/2023 5:59 PM [facility] Hemoglobin 12.9 11.9 - 15.8 g/dL 11/14/2023 5:59 PM [facility] Hematocrit 40.1 34.8 - 46.1 % 11/14/2023 5:59 PM [facility] MCV 88.1 80.0 - 98.0 fL 11/14/2023 5:59 PM [facility] MCH 28.4 26.7 - 33.6 pg 11/14/2023 5:59 PM T [facility] MCHC 32.2 31.7 - 36.3 g/dL 11/14/2023 5:59 PM [facility] RDW-CV 12.1 11.3 - 14.8 % 11/14/2023 5:59 PM [facility] Platelet Count 404 150 - 420 x10E9/L 11/14/2023 5:59 PM [facility] MPV 10.1 7.8 - 11.4 fL 11/14/2023 5:59 PM [facility] Neutrophil % 74.1(H) 41.0 - 74.0 % 11/14/2023 5:59 PM [facility] Lymphocyte % 16.2(L) 17.0 - 47.0 % 11/14/2023 5:59 PM [facility] Monocyte % 5.7 3.0 - 11.0 % 11/14/2023 5:59 PM CDT [facility] Eosinophil % 3.0 0.0 - 7.0 % 11/14/2023 5:59 PM [facility] Basophil % 0.8 0.0 - 1.6 % 11/14/2023 5:59 PM CDT [facility] Immature Granulocytes % 0.2 0.0 - 1.0 % 11/14/2023 5:59 PM CDT [facility] Neutrophil Absolute 6.76 1.60 - 7.50 x10E9/L 11/14/2023 5:59 PM CDT [facility] Lymphocyte Absolute 1.48 1.00 - 4.40 x10E9/L 11/14/2023 5:59 PM [facility] Monocyte Absolute 0.52 0.15 - 1.00 x10E9/L 11/14/2023 5:59 PM CDT [facility] Eosinophil Absolute 0.27 0.00 - 0.60 x10E9/L 11/14/2023 5:59 PM CDT [facility] Basophil Absolute 0.07 0.00 - 0.13 x10E9/L 11/14/2023 5:59 PM [facility] Blood BLOOD SPECIMEN / Unknown Venipuncture / Unknown 11/14/2023 5:51 PM CDT 11/14/2023 5:53 PM CDT Yobany Gloria PA-C LAB - DENNISE TOLOGY ORDERABLES [facility] [address] [place] [phone], [facility] [phone] * (ABNORMAL) COMPREHENSIVE METABOLIC PANEL (11/14/2023 5:51 PM CDT) Only the most recent of7 resultswithin the time period is included. BUN 20 7 - 26 mg/dL 11/14/2023 6:24 PM CDT [facility] Creatinine 1.22(H) 0.56 - 0.96 mg/dL 11/14/2023 6:24 PM [facility] Sodium 140 136 - 145 mmol/L 11/14/2023 6:24 PM [facility] Potassium 5.3(H) 3.5 - 4.5 mmol/L 11/14/2023 6:24 PM [facility] Chloride 108(H) 98 - 107 mmol/L 11/14/2023 6:24 PM [facility] CO2 24 22 - 29 mmol/L 11/14/2023 6:24 PM [facility] Glucose 190(H) 70 - 115 mg/dL 11/14/2023 6:24 PM [facility] Calcium 9.4 8.4 - 10.2 mg/dL 11/14/2023 6:24 PM [facility] Protein Total 8.1 6.0 - 8.3 g/dL 11/14/2023 6:24 PM [facility] Albumin 3.4 3.4 - 5.0 g/dL 11/14/2023 6:24 PM [facility] Bilirubin Total 0.7 0.2 - 1.2 mg/dL 11/14/2023 6:24 PM [facility] Alkaline Phosphatase 147 40 - 150 U/L 11/14/2023 6:24 PM [facility] ALT 26 5 - 55 U/L 11/14/2023 6:24 PM [facility] AST 33 5 - 34 U/L 11/14/2023 6:24 PM [facility] Anion Gap 8 6 - 16 11/14/2023 6:24 PM [facility] BUN/Creatinine Ratio 16 7 - 23 11/14/2023 6:24 PM [facility] Osmolality Calculated 298(H) 275 - 295 mOsm/kg 11/14/2023 6:24 PM [facility] Albumin/Globulin Ratio 0.7(L) 1.1 - 2.3 11/14/2023 6:24 PM [facility] eGFR by CKD-EPI 56(L) >=90 mL/min/1.7 3 m2 11/14/2023 6:24 PM [facility] Blood BLOOD SPECIMEN / Unknown Venipuncture / Unknown 11/14/2023 5:51 PM CDT 11/14/2023 5:53 PM CDT Yobany Gloria PA-C LAB - CHEM ISTRY ORDERABLES [facility] [address] [place] [address], [facility] [phone] * XR CHEST 2VW (11/14/2023 4:00 PM CDT) Only the most recent of3 resultswithin the time period is included. Anatomical Region Laterality Modality Chest Radiographic Donna ging 11/14/2023 4:05 PM CDT Narrative 11/14/2023 9:02 PM CDT PROCEDURE: ??XR CHEST 2VW, DATE/TIME OF EXAM: ??11/14/2023 4:01 PM, LOCATION [facility] INDICATION: R42: Dizziness ADDITIONAL CLINICAL INFORMATION: Ordering Provider Reason For Exam: ??R/o pneumonia COMPARISON: None. TECHNIQUE: Frontal and lateral radiograph of the chest. FINDINGS/IMPRESSION: There is no focal consolidation, pleural effusion, or pneumothorax. The cardiomediastinal silhouette is normal. The visible bony thorax is intact. Report dictated by Edwin Shepherd MD, (Coin Rolling Machine Operator). Kirby Pascual MD have personally reviewed and interpreted this examination/study. > Interpreting Provider: Kirby Abarca MD on 11/14/2023 9:02 PM Procedure Note Kirby Abarca MD - 11/14/2023 PROCEDURE: XR CHEST 2VW, DATE/TIME OF EXAM: 11/14/2023 4:01 PM, LOCATION [facility] INDICATION: R42: Dizziness ADDITIONAL CLINICAL INFORMATION: Ordering Provider Reason For Exam: R/o pneumonia COMPARISON: None. TECHNIQUE: Frontal and lateral radiograph of the chest. FINDINGS/IMPRESSION: There is no focal consolidation, pleural effusion, or pneumothorax. The cardiomediastinal silhouette is normal. The visible bony thorax isintact. Report dictated by Edwin Shepherd MD, (Coin Rolling Machine Operator). Kirby Pascual MD have personally reviewed and interpreted this examination/study. > Interpreting Provider: Kirby Abarca MD on 11/14/2023 9:02 PM Yobany Gloria PA-C DIAGNOSTIC IMAGING ORDERABLES * EKG 12-LEAD (11/14/2023 1:22 PM CDT) Only the most recent of4 resultswithin the time period is included. Ventricular Rate 90 BPM [facility] Atrial Rate 90 BPM [facility] P-R Interval 120 ms [facility] QRS Duration ms 76 ms [facility] Q-T Interval ms 360 ms [facility] QTC Calculation (Bezet) 440 ms [facility] Calculated P [place] 63 degrees [facility] Calculated R [place] 33 degrees [facility] Calculated T [place] 61 degrees [facility] Interpretation EKG NORMAL SINUS RHYTHM NORMAL ECG WHEN COMPARED WITH ECG OF 31-MAY-2021 17:41, NO SIGNIFICANT CHANGE WAS FOUND Confirmed by NIHARIKA ??ALONA PRO ([id number]) on 11/16/2023 9:51:46 PM [facility] 11/14/2023 1:22 PM CDT 11/16/2023 9:51 PM CDT Yobany GUERRERO-Baltazar ECG ORDERA BLES [facility] M[facility] * IR KULDIP LUMBAR DIRECT APPROACH (11/13/2021 2:51 PM CDT) Anatomical Region Laterality Modality Spine X-Ray Angiograph y 11/13/2021 3:49 PM CDT Impressions 11/13/2021 3:58 PM CDT Impression: L5-S1 interlaminar epidural steroid injection under fluoroscopic guidance. I, Dr Ferro , was present and performed/supervised the entire procedure This report was electronically signed by TOVA FERRO ??on 11/13/2021 3:58 PM . Narrative 11/13/2021 3:58 PM CDT History: 41 F w/ R S1 radiculopathy for past year here for L5-S1 interlaminar KULDIP. Referred by Dr. Cortez from ortho. MRI 08/21/21 date demonstrating L5/S1 broad disc bulge with lateral recess stenosis. PMH sig for Myasthenia gravis s/p thymectomy 2012, T2DM, Diabetic polyneuropathy. Operators: 1.Dr. Ferro, Attending Physician Anesthesia: Local with 5 mL of 1% lidocaine. Procedure: Fluoroscopy-guided L5-S1 interlaminar epidural steroid injection. Fluoroscopic time: 2.3 minutes ?Contrast: 3 mL of Isovue 200 Procedure details: The procedure, risks, and possible complications were explained to the patient in detail, and informed consent was obtained. The patient was placed prone on the procedure table. The lower back was prepped and draped in the usual sterile manner. Pre-procedure fluoroscopy was done in the region of interest, and the needle entry site was marked on the lower back. After injection of 1% lidocaine for local anesthesia, a 21-gauge 5 inch needle was advanced into the epidural space at the level of L5-S1. Contrast was injected and epidurography was performed, which confirmed the tip of the needle in the epidural space. Subsequently, a mixture of 3 mL betamethasone (6 mg/mL) and 3 mL 0.5% bupivacaine was injected. The needle was removed, and sterile dressing was applied. The patient tolerated the procedure well and was transferred to the holding area in stable condition. There were no immediate complications associated with the procedure. The patient's pain level before the procedure was 6/10. The patient's pain level after the procedure was 2/10. Procedure Note Tova Ferro MD - 11/13/2021 History: 41 F w/ R S1 radiculopathy for past year here for L5-S1 interlaminar KULDIP. Referred by Dr. Cortez from ortho. MRI 08/21/21 date demonstrating L5/S1 broad disc bulge with lateral recess stenosis. PMHsig for Myasthenia gravis s/p thymectomy 2012, T2DM, Diabeticpolyneuropathy. Operators: 1.Dr. Ferro, Attending Physician Anesthesia: Local with 5 mL of 1% lidocaine. Procedure: Fluoroscopy-guided L5-S1 interlaminar epidural steroid injection. Fluoroscopic time: 2.3 minutes Contrast: 3 mL of Isovue 200 Procedure details: The procedure, risks, and possible complications were explained to the patient in detail, and informed consent was obtained. The patient was placed prone on the procedure table. The lower back was prepped anddraped in the usual sterile manner. Pre-procedure fluoroscopy was done in the region of interest, and the needle entry site was marked on the lower back. After injection of 1% lidocaine for local anesthesia, a 21-gauge 5 inch needle was advancedinto the epidural space at the level of L5-S1. Contrast was injected and epidurography was performed, which confirmed the tip of the needle inthe epidural space. Subsequently, a mixture of 3 mL betamethasone (6 mg/mL) and 3 mL 0.5% bupivacaine was injected. The needle was removed, and sterile dressing was applied. The patient tolerated the procedure well and was transferred to the holding area in stable condition. There were no immediate complications associated with the procedure. The patient's pain level before the procedure was 6/10. The patient'subhash level after the procedure was 2/10. Impression: L5-S1 interlaminar epidural steroid injection under fluoroscopic guidance. I, Dr Ferro , was present and performed/supervised the entire procedure This report was electronically signed by TOVA FERRO on 11/13/2021 3:58 PM . Michael Cortez MD IR ORDERABLES * XR LUMBAR SPINE 2 OR 3VW (10/18/2021 2:05 PM CDT) Anatomical Region Laterality Modality Spine Radiographic Donna ging 10/18/2021 2:29 PM CDT Impressions 10/18/2021 2:30 PM CDT IMPRESSION: Moderate degenerative disc disease at L5-S1. This report was electronically signed by TERRY ALCOCER MD ??on 10/18/2021 2:30 PM . Narrative 10/18/2021 2:30 PM CDT Exam: ??XR LUMBAR SPINE 2 OR 3VW History: ??M54.9: Back pain, unspecified back location, unspecified back pain laterality, unspecified chronicity Comparison: MRI lumbar spine 08/21/2021 Findings: No fracture or subluxation. Moderate degenerative disc disease at L5-S1. The other disc spaces are normal. A right upper quadrant calcification may represent a gallstone. Procedure Note Terry Alcocer MD - 10/18/2021 Exam: XR LUMBAR SPINE 2 OR 3VW History: M54.9: Back pain, unspecified back location, unspecified back pain laterality, unspecified chronicity Comparison: MRI lumbar spine 08/21/2021 Findings: No fracture or subluxation. Moderate degenerative disc disease at L5-S1. The other disc spaces are normal. A right upper quadrant calcificationmay represent a gallstone. IMPRESSION: Moderate degenerative disc disease at L5-S1. This report was electronically signed by TERRY ALCOCER MD on10/18/2021 2:30 PM . Michael Cortez MD DIAGNOSTIC IMAGING O RDERABLES * MRI LUMBAR SPINE WWO CONTRAST (08/21/2021 8:55 AM CDT) Anatomical Region Laterality Modality Spine Magnetic Resonan ce 08/22/2021 12:2 7 AM CDT Impressions 08/23/2021 3:19 PM CDT IMPRESSION: 1. No acute process or significant interval changes are identified. 2. Stable severe degenerative disc disease at L5-S1 associated with posterior disc bulging special. Abutment of the bulged disc with the bilateral traversing S1 nerves inside the canal and exiting L5 nerve in the left neural foramen is similar to the prior study. This report was electronically signed by ANTONIO CANTOR ??on 08/23/2021 3:19 PM . Narrative 08/23/2021 3:19 PM CDT EXAMINATION: MRI OF THE LUMBAR SPINE WITHOUT AND WITH CONTRAST HISTORY: M54.16: Lumbar radiculopathy COMPARISON: MRI lumbar spine without contrast, 04/15/2017 TECHNIQUE: MRI of the lumbar spine was performed prior to and following the uneventful administration of 8 mL Gadavist intravenous gadolinium contrast according to standard protocol. FINDINGS: The alignment is normal. No acute fracture, marrow edema, a malignant marrow replacing process or spondylolisthesis is identified. Compression deformity of superior endplate of T11 is similar to the prior study and may represent an old intravertebral disc herniation/Schmorl's node. Vertebral bodies are otherwise normal in height. There is stable severe degenerative disc disease at L5-S1. There are associated Modic type II degenerative changes of anterior endplates at L5-S1 are present (previously Modic type I). Marrow signal intensity is otherwise normal. The conus medullaris terminates at the level of T12-L1 and the distal spinal cord signal intensity is normal. No abnormal enhancement is identified. The remainder of the intervertebral discs at the T11-T12 through the L4-L5 levels are normal in height and signal intensity. No soft tissue abnormality is identified. T11-T12, T12-L1: The disc, central canal, conus, neural foraminal, exiting there is and the facets are normal. L1-L2, L2-L3, L3-L4 and L4-L5: The disc, central canal, lateral recesses, neural foramina, traversing nerves, exiting nerves and the facets are normal. L5-S1: The broadbase posterior disc bulging is slightly eccentric to the right side. It abuts the bilateral S1 traversing nerves inside the canal and outside the thecal sac, almost similar to the prior study. The size of the bulged disease has not changed. There is no evidence of significant stenosis of thecal sac or lateral recesses. There is no right neural foraminal stenosis or neural impingement. There is mild left neural foraminal stenosis and a stable abutment of the bulged disc to the L5 nerve in the foramen. Procedure Note Antonio Cantor MD - 08/23/2021 EXAMINATION: MRI OF THE LUMBAR SPINE WITHOUT AND WITH CONTRAST HISTORY: M54.16: Lumbar radiculopathy COMPARISON: MRI lumbar spine without contrast, 04/15/2017 TECHNIQUE: MRI of the lumbar spine was performed prior to and following the uneventful administration of 8 mL Gadavist intravenous gadolinium contrast according to standard protocol. FINDINGS: The alignment is normal. No acute fracture, marrow edema, a malignant marrow replacing process or spondylolisthesis is identified. Compression deformity of superior endplate of T11 is similar to the prior study and may represent an old intravertebral disc herniation/Schmorl's node. Vertebral bodies are otherwise normal in height. There is stable severe degenerative disc disease at L5-S1. There are associated Modic type II degenerative changes of anterior endplates at L5-S1 are present (previously Modic type I). Marrow signal intensity is otherwise normal. The conus medullaris terminates at the level of T12-L1 and the distal spinal cord signal intensity is normal. No abnormal enhancement is identified. The remainder of the intervertebral discs at the T11-T12 through the L4-L5 levels are normal in height and signal intensity. No soft tissue abnormality is identified. T11-T12, T12-L1: The disc, central canal, conus, neural foraminal,exiting there is and the facets are normal. L1-L2, L2-L3, L3-L4 and L4-L5: The disc, central canal, lateralrecesses, neural foramina, traversing nerves, exiting nerves and the facets are normal. L5-S1: The broadbase posterior disc bulging is slightly eccentric to the right side. It abuts the bilateral S1 traversing nerves inside the canal and outside the thecal sac, almost similar to the prior study. The sizeof the bulged disease has not changed. There is no evidence of significant stenosis of thecal sac or lateral recesses. There is no right neural foraminal stenosis or neural impingement. There is mild left neural foraminal stenosis and a stable abutment of the bulged disc to the L5 nerve in the foramen. IMPRESSION: 1. No acute process or significant interval changes are identified. 2. Stable severe degenerative disc disease at L5-S1 associated with posterior disc bulging special. Abutment of the bulged disc with the bilateral traversing S1 nerves inside the canal and exiting L5 nerve in the left neural foramen is similar to the prior study. This report was electronically signed by ANTONIO CANTOR on 08/23/2021 3:19 PM . Roxana Logan MD MR ORDERABLES * CREATININE - POCT INTERFACED (08/21/2021 7:38 AM CDT) Creatinine POCT 0.73 0.30 - 1.30 mg/dL 08/21/2021 7:40 AM CDT [facility] eGFR >90 >90 mL/min/1.7 3 m2 08/21/2021 7:40 AM CDT [facility] Blood BLOOD SPECIMEN / Unknown 08/21/2021 7:38 AM CDT 08/21/2021 7:39 AM CDT Roxana Logan MD LAB - POINT OF CARE ORDERABLES [place] [place] [address], [facility] [phone] * MRI BRAIN WO CONTRAST (05/31/2021 10:04 PM PRIVATE DUTY NURSE) Anatomical Region Laterality Modality Head Magnetic Resonan ce 06/01/2021 7:57 AM PRIVATE DUTY NURSE Impressions 06/01/2021 9:22 AM PRIVATE DUTY NURSE IMPRESSION: No evidence of restricted diffusion to suggest an acute cerebral infarction. Dictated by George Allred MD (resident athletic trainer). This report was approved ??by George Allred ?? on 06/01/2021 9:22 AM . I, Dr. CHRISTELLE YBARRA have personally reviewed and interpreted this examination/study. This report was electronically signed by CHRISTELLE YBARRA ??on 06/01/2021 9:22 AM . Narrative 06/01/2021 9:22 AM PRIVATE DUTY NURSE MRI BRAIN WO CONTRAST DATE: 05/31/2021 10:04 PM EXAMINATION: Magnetic resonance imaging (MRI) of the brain without contrast HISTORY: R20.2: Tingling TECHNIQUE: MRI of the brain was performed without contrast according to standard protocol. COMPARISON: MRI of the brain from 10/26/2016. CT of the head from 05/31/2021 FINDINGS: No evidence of acute or chronic hemorrhage is identified. No evidence of acute cerebral infarction is seen. The ventricles are of stable size, shape, and morphology. No mass effect or midline shift is seen. Rare cerebral hemispheric white matter FLAIR hyperintensities are a nonspecific finding. For example, there is a small focus of FLAIR hyperintensity in the subcortical white matter of the left superior frontal gyrus, (series 11, image 14) and a tiny focus of FLAIR hyperintensity in the subcortical white matter of the left middle frontal gyrus, (series 11, image 16). The corpus callosum and sella appear normal. The posterior fossa, brainstem, and craniocervical junction appear normal. The visualized portions of the orbits, paranasal sinuses, and mastoids appear normal. Normal flow voids are demonstrated in the carotid arteries and basilar artery. The calvarium and visualized cervical spine appear normal. Procedure Note Christelle Ybarra MD - 06/01/2021 MRI BRAIN WO CONTRAST DATE: 05/31/2021 10:04 PM EXAMINATION: Magnetic resonance imaging (MRI) of the brain withoutcontrast HISTORY: R20.2: Tingling TECHNIQUE: MRI of the brain was performed without contrast according to standard protocol. COMPARISON: MRI of the brain from 10/26/2016. CT of the head from 05/31/2021 FINDINGS: No evidence of acute or chronic hemorrhage is identified. No evidence of acute cerebral infarction is seen. The ventricles are of stable size, shape, and morphology. No mass effect or midline shift is seen. Rare cerebral hemispheric white matter FLAIR hyperintensities are anonspecific finding. For example, there is a small focus of FLAIR hyperintensity in the subcortical white matter of the left superior frontal gyrus, (series 11, image 14) and a tiny focus of FLAIR hyperintensity in thesubcortical white matter of the left middle frontal gyrus, (series 11, image 16).The corpus callosum and sella appear normal. The posterior fossa, brainstem, and craniocervical junction appear normal. The visualized portions of the orbits, paranasal sinuses, and mastoids appear normal. Normal flow voids are demonstrated in the carotidarteries and basilar artery. The calvarium and visualized cervical spine appear normal. IMPRESSION: No evidence of restricted diffusion to suggest an acute cerebral infarction. Dictated by George Allred MD (resident athletic trainer). This report was approved by George Allred on 06/01/2021 9:22 AM . I, Dr. CHRISTELLE YBARRA have personally reviewed and interpreted this examination/study. This report was electronically signed by CHRISTELLE YBARRA on06/01/2021 9:22 AM . Rogerio Hart MD MR ORDERABLES * BLOOD TYPE VERIFICATION (05/31/2021 8:06 PM PRIVATE DUTY NURSE) ABO Rh B POS 05/31/2021 8:4 4 PM PRIVATE DUTY NURSE [facility] Blood Bank BLOOD SPECIMEN / Unknown Lab Venipuncture / Unknown 05/31/2021 8:06 PM PRIVATE DUTY NURSE 05/31/2021 8:14 PM PRIVATE DUTY NURSE Provider Unknown LAB - BLOOD BANK ORD GILBERTO Performing Organization Address City/[facility]/ZIP Co de Phone Number [facility] [address] [place] [address], [facility] [phone] * TROPONIN I (05/31/2021 8:06 PM PRIVATE DUTY NURSE) Only the most recent of6 resultswithin the time period is included. Troponin I 0.018 <0.032 ng/mL 05/31/2021 8:38 PM PRIVATE DUTY NURSE [facility] Blood BLOOD SPECIMEN / Unknown Venipuncture / Unknown 05/31/2021 8:06 PM PRIVATE DUTY NURSE 05/31/2021 8:20 PM PRIVATE DUTY NURSE Rogerio Hart MD LAB - CHEMISTRY ORDE PEDRO Performing Organization Address [facility]/ZIP Co de Phone Number [facility] [address] [place] [address], [facility] [phone] * (ABNORMAL) SARS-COV-2 (COVID-19)+INFLU A+B PCR RAPID (05/31/2021 4:54 PM PRIVATE DUTY NURSE) Pathologist [facility] COVID-19 PCR Detected(AA) Not detected 05/31/19 5:41 PM PRIVATE DUTY NURSE [facility] Influenza A Rapid TARA Not Detected Not Detected 05/31/2021 5:41 PM [facility] Influenza B TARA Rapid Not Detected Not Detected 05/31/2021 5:41 PM PRIVATE DUTY NURSE [facility] Microbiology SPECIMEN FROM NASOPHARYNGEAL STRUCTURE / Unknown Collection / Unknown 05/31/2021 4:54 PM PRIVATE DUTY NURSE 05/31/2021 4:58 PM PRIVATE DUTY NURSE Narrative [facility] - 05/31/2021 5:41 PM PRIVATE DUTY NURSE Samples with high concentrations of SARS-CoV-2 RNA may result in false negative influenza testing if a low concentration of influenza virus is present. Influenza A and Influenza B negative results should be considered presumptive negative in samples with a positive SARS-CoV-2 result and influenza testing should be performed by another method if clinically indicated. Influenza assay performed by [employer]. Results do not exclude the possibility of a mixed viral infection. NOTE: ??Detecting and identifying specific viral nucleic acids from individuals exhibiting signs and symptoms of respiratory infection aids in the diagnosis of respiratory infection, if used in conjunction with other clinical and laboratory findings. The results of this test should not be used as the sole basis for diagnosis, treatment, or patient management decisions. This nucleic acid amplification assay performance was validated by [facility]. This test has been authorized by the Food and Drug administration (FDA)under an Emergency??Use Authorization (EUA). This test has been validated in accordance with the FDA's guidance document Policy for Diagnostic Testing in Laboratories Certified to perform High Complexity Testing under CLIA prior to Emergency Use Authorization for Coronavirus Disease-2019 during the Public Health Emergency issued on July 25, 2019. FDA independent review of this validation is pending. This test is only authorized for the duration of time the declaration that circumstances exist justifying the authorization of emergency use of in vitro diagnostic tests for detection of SARS-CoV-2 virus and/or diagnosis of COVID-19 infection under section 564(b)(1) of the Act, 21 U.S.C 360bbb-3 (b)(1), unless the authorization is terminated or revoked sooner. Fact Sheets for this EUA assay are available upon request. Rogerio Hart MD LAB - MICROBIOLOGY O [facility] [address] [address], [facility] [phone] * PT-INR [facility] (05/31/2021 4:48 PM PRIVATE DUTY NURSE) Only the most recent of7 resultswithin the time period is included. PT 12.2 12.1 - 14.8 Seconds 05/31/2021 5:17 PM PRIVATE DUTY NURSE [facility] INR 0.9 See Comment 05/31/2021 5:17 PM PRIVATE DUTY NURSE [facility] Comment:The suggested therap eutic range for standard coumadin (warfarin) therapy is an INR of 2.0-3.0. For high-risk patients (Mechanical Mitral Valve Prosthesis, etc.), the suggested prophylactic therapeutic range is an INR of 2.5-3.5. Blood BLOOD SPECIMEN / Unknown Venipuncture / Unknown 05/31/2021 4:48 PM PRIVATE DUTY NURSE 05/31/2021 4:59 PM PRIVATE DUTY NURSE Rogerio Hart MD LAB - COAGULATION OR DERABLES Performing Organization Address City/[facility]/ZIP Co de Phone Number [facility] [address] [place] [address], [facility] [phone] * TYPE + SCREEN PANEL (05/31/2021 4:48 PM PRIVATE DUTY NURSE) Only the most recent of3 resultswithin the time period is included. Antibody Screen NEG 5:58 PM PRIVATE DUTY NURSE [facility] ABO Rh B POS 05/31/2021 5:58 PM PRIVATE DUTY NURSE [facility] Blood Bank BLOOD SPECIMEN / Unknown Venipuncture / Unknown 05/31/2021 4:48 PM PRIVATE DUTY NURSE 05/31/2021 5:04 PM PRIVATE DUTY NURSE Rogerio Hart MD LAB - BLOOD BANK ORD ERABLES Performing Organization Address [facility] Co de Phone Number [facility] [address] [place] [address], [facility] [phone] * CT ANGIO BRAIN AND NECK (05/31/2021 4:45 PM PRIVATE DUTY NURSE) Anatomical Region Laterality Modality Head Computed Tomogra phy 05/31/2021 4:41 PM PRIVATE DUTY NURSE Impressions 06/01/2021 9:58 AM PRIVATE DUTY NURSE IMPRESSION: Normal CT angiogram of the brain and neck. Findings were discussed with Dr. Mace by Dr. Garcia at 4:42pm on 05/31/20. Dictated by Piotr Garcia MD (Coin Rolling Machine Operator) I, Dr. LARISA OCAMPO have personally reviewed and interpreted this examination/study. This report was electronically signed by LARISA OCAMPO ??on 06/01/2021 9:58 AM . Narrative 06/01/2021 9:58 AM PRIVATE DUTY NURSE EXAMINATION: CT angiography of the brain CT angiography of the neck HISTORY: R20.2: Tingling TECHNIQUE: CT angiography of the head and neck was obtained after the uneventful administration of 75 mL Isovue 370 intravenous contrast. Three dimensional postprocessing was performed by the technologist and sent to the workstation for review. NASCET criteria was utilized for evaluation of carotid stenosis. COMPARISON: No prior study is available for comparison at the time of this dictation. FINDINGS: The common and internal carotid arteries are patent bilaterally without wall calcification or stenosis. The intracranial internal carotid arteries are unremarkable. The anterior and middle cerebral arteries are within normal limits. ??There is a normal anterior communicating artery. The vertebral arteries are normal in intracranial and extracranial course. The basilar artery is normal. ??The posterior cerebral arteries are within normal limits. ??Both posterior communicating arteries are visualized. There is no aneurysm. The dural venous sinuses are patent. There is a 1 cm hypoattenuating left thyroid lobe nodule. There are scattered other subcentimeter left thyroid lobe nodules. Procedure Note Larisa Ocampo MD - 06/01/2021 EXAMINATION: CT angiography of the brain CT angiography of the neck HISTORY: R20.2: Tingling TECHNIQUE: CT angiography of the head and neck was obtained after the uneventful administration of 75 mL Isovue 370 intravenous contrast.Three dimensional postprocessing was performed by the technologist and sent to the workstation for review. NASCET criteria was utilized for evaluationof carotid stenosis. COMPARISON: No prior study is available for comparison at the time ofthis dictation. FINDINGS: The common and internal carotid arteries are patent bilaterally without wall calcification or stenosis. The intracranial internal carotidarteries are unremarkable. The anterior and middle cerebral arteries are within normal limits. There is a normal anterior communicating artery. The vertebral arteries are normal in intracranial and extracranialcourse. The basilar artery is normal. The posterior cerebral arteries arewithin normal limits. Both posterior communicating arteries are visualized. There is no aneurysm. The dural venous sinuses are patent. There is a 1 cm hypoattenuating left thyroid lobe nodule. There are scattered other subcentimeter left thyroid lobe nodules. IMPRESSION: Normal CT angiogram of the brain and neck. Findings were discussed with Dr. Mace by Dr. Garcia at 4:42pm on 05/31/20. Dictated by Piotr Garcia MD (Coin Rolling Machine Operator) I, Dr. LARISA OCAMPO have personally reviewed and interpreted this examination/study. This report was electronically signed by LARISA OCAMPO on 06/01/2021 9:58 AM. Berto Segal MD CT ORDERABLES * CT BRAIN - Stroke (05/31/2021 4:14 PM PRIVATE DUTY NURSE) Anatomical Region Laterality Modality Head Computed Tomogra phy 05/31/2021 4:15 PM PRIVATE DUTY NURSE Impressions 06/01/2021 7:58 AM PRIVATE DUTY NURSE IMPRESSION: No acute intracranial abnormality. Findings were discussed with Dr. Mace by Dr. Garcia at 4:17pm on 05/31/20. Dictated by Piotr Garcia MD (Coin Rolling Machine Operator) I, Dr. LARISA OCAMPO have personally reviewed and interpreted this examination/study. This report was electronically signed by LARISA OCAMPO ??on 06/01/2021 7:58 AM . Narrative 06/01/2021 7:58 AM PRIVATE DUTY NURSE EXAMINATION: Computed tomography (CT) of the head without contrast HISTORY: Code Stroke; right upper extremity weakness TECHNIQUE: CT of the head was performed without contrast according to standard protocol. COMPARISON: CT head from 07/28/2014 and MRI brain from 10/26/2016 were reviewed. FINDINGS: There is no CT evidence of acute infarct. There is no acute hemorrhage. There is no hydrocephalus, midline shift or extra-axial fluid collection. There is no significant parenchymal abnormality. There is stable small midline calcification in the region of anterior cerebral arteries A2 branches. The paranasal sinuses and tympanomastoid cavities are aerated. The orbits are unremarkable. There is no skull fracture. Procedure Note Larisa Ocampo MD - 06/01/2021 EXAMINATION: Computed tomography (CT) of the head without contrast HISTORY: Code Stroke; right upper extremity weakness TECHNIQUE: CT of the head was performed without contrast according to standard protocol. COMPARISON: CT head from 07/28/2014 and MRI brain from 10/26/2016 were reviewed. FINDINGS: There is no CT evidence of acute infarct. There is no acute hemorrhage. There is no hydrocephalus, midline shift or extra-axial fluidcollection. There is no significant parenchymal abnormality. There is stable small midline calcification in the region of anterior cerebral arteries A2 branches. The paranasal sinuses and tympanomastoid cavities are aerated. Theorbits are unremarkable. There is no skull fracture. IMPRESSION: No acute intracranial abnormality. Findings were discussed with Dr. Mace by Dr. Garcia at 4:17pm on 05/31/20. Dictated by Piotr Garcia MD (Coin Rolling Machine Operator) I, Dr. LARISA OCAMPO have personally reviewed and interpreted this examination/study. This report was electronically signed by LARISA OCAMPO on 06/01/2021 7:58 AM. Rogerio Hart MD CT ORDERABLES * HEPATIC FUNCTION PANEL (02/13/2019 2:40 PM CDT) Only the most recent of7 resultswithin the time period is included. Protein Total 6.9 6.0 - 8.3 g/dL 019 4:05 PM T [facility] Albumin 3.6 3.4 - 5.0 g/dL 02/13/2019 4:05 PM [facility] Bilirubin Total 0.7 0.2 - 1.2 mg/dL 01/26 4:05 PM [facility] Bilirubin Conjugated 0.3 0.0 - 0.5 mg/dL 02/13/2019 4:05 PM [facility] Bilirubin Unconjugated 0.4 Unconjugated Bilirubin is a calculated value: Reference ranges have not been established. mg/dL 02/13/2019 4:05 PM [facility] Alkaline Phosphatase 109 40 - 150 Units/L 02/13/2019 4:05 PM [facility] ALT 10 0 - 55 Units/L 02/13/2019 4:05 PM [facility] AST 13 5 - 34 Units/L 02/13/2019 4:05 PM [facility] Albumin/Globulin Ratio 1.1 1.1 - 2.3 02/13/2019 4:05 PM T [facility] Blood BLOOD SPECIMEN / Unknown Lab Venipuncture / Unknown 02/13/2019 2:40 PM CDT 02/13/2019 3:06 PM CDT Roxana Logan MD LAB - CHEMISTRY MEKA VASQUEZ [facility] Organization Address City/State/ZIP Co de Phone Number [facility] [address] [place] [address] * (ABNORMAL) CULTURE URINE (09/30/2017 10:25 AM CDT) Only the most recent of5 resultswithin the time period is included. Culture (A) [facility] Comment: ??CULTURE, URINE, ROUTINE ?MICRO NUMBER: ?[id number] ??TEST STATUS: ? FINAL ??SPECIMEN SOURCE: ?? URINE ??SPECIMEN QUALITY: ??ADEQUATE ??RESULT: ?Greater than 100,000 CFU/mL of Escherichia coli ?E.coli ?INT ?? YUDI ?? AMOX/CLAVULANATE ? S ? <=2 ?? AMPICILLIN ? S ? 8 ?? AMP/SULBACTAM ?S ? <=2 ?? CEFAZOLIN ?NR ?<=4 2 ?? CEFEPIME ? S ? <=1 ?? CEFTRIAXONE ?S ? <=1 ?? CIPROFLOXACIN ?S ? <=0.25 ?? ERTAPENEM ?S ? <=0.5 ?? GENTAMICIN ? S ? <=1 ?? IMIPENEM ? S ? <=0.25 ?? LEVOFLOXACIN ? S ? <=0.12 ?? NITROFURANTOIN ? S ? <=16 ?? PIP/TAZOBACTAM ? S ? <=4 ?? TOBRAMYCIN ? S ? <=1 ?? TRIMETHOPRIM/SULFA ? S ? <=20 S=Susceptible ??I=Intermediate ??R=Resistant ??* = Not Tested NR = Not Reported ??NN = See Therapy Comments THERAPY COMMENTS ?Note 1: ?For infections other than uncomplicated UTI ?caused by E. coli, K. pneumoniae or P. mirabilis: ?Cefazolin is resistant if YUDI > or = 8 mcg/mL. ?(Distinguishing susceptible versus intermediate ?for isolates with YUDI < or = 4 mcg/mL requires ?additional testing.) ?Note 2: ?For uncomplicated UTI caused by E. coli, ?K. pneumoniae or P. mirabilis: Cefazolin is ?susceptible if YUDI <32 mcg/mL and predicts ?susceptible to the oral agents cefaclor, cefdinir, ?cefpodoxime, cefprozil, cefuroxime, cephalexin ?and loracarbef. Test Performed at: [facility] ??[phone] KATHY XIE MD Urine URINE SPECIMEN OBTAINED BY CLEAN CATCH PROCEDURE / Unknown 09/30/2017 10:25 AM CDT 09/30/2017 11:55 PM CDT Sejal Ugarte CYBER INTELLIGENCE ANALYST-[employer]AG [employer] LAB - MICROBIOLOG Y ORDERABLES [address] [address] * (ABNORMAL) URINALYSIS AUTO - POINT OF CARE (AMB) ST (09/30/2017) Only the most recent of3 resultswithin the time period is included. Clarity UA POCT cloudy Color UA POCT shana Leukocyte UA mod 125 Negative Nitrite UA POCT pos Negative Urobilinogen UA 0.2 0.1 - 1.0 Protein UA POCT 300+++ Negative pH UA 5.0 5.0 - 8.0 pH units Blood UA 3+ Negative Specific [place] UA POCT 1.030 1.002 - 1.030 Ketone UA neg Negative Bilirubin UA POCT neg Negative Glucose UA neg Negative Expiration Date 01/02/19 Lot # [id number] QC Verified Yes Yes Urine URINE / Unknown 09/30/2017 Sejal Ugarte CYBER INTELLIGENCE ANALYST[facility] LAB - POINT OF CA RE ORDERABLES * MRI LUMBAR SPINE WO CONTRAST (04/15/2017 6:17 PM PRIVATE DUTY NURSE) Anatomical Region Laterality Modality Spine Other Impressions 04/16/2017 10:11 AM PRIVATE DUTY NURSE IMPRESSION: 1. L5-S1 degenerative disc disease resulting in moderate left neural foraminal stenosis at this level. This report was approved ??by Jeffry Blake M.D. ?? on 04/16/2017 9:42 AM . I, Dr. CAPRICE COOLEY M.D. have personally reviewed and interpreted this examination/study. This report was electronically signed by CAPRICE COOLEY M.D. ??on 04/16/2017 10:11 AM . Narrative 04/16/2017 10:11 AM PRIVATE DUTY NURSE This is a summary report. The complete report is available in the patient's medical record. If you cannot access the medical record, please contact the sending organization for a detailed fax or copy. EXAMINATION: Magnetic resonance imaging (MRI) of the lumbar spine without contrast HISTORY: Lower back pain TECHNIQUE: MRI of the lumbar spine was performed without contrast according to standard protocol. FINDINGS: No prior study is available for comparison at the time of this dictation. The alignment is normal. Vertebral bodies are normal in height without evidence of compression fractures. There are Modic type I degenerative endplate changes at L5-S1. The conus medullaris terminates at the level of T12-L1 and the distal spinal cord signal intensity is normal. The L5-S1 intervertebral disc is severely reduced in height with disc desiccation. The other intervertebral disc are normal in height. No soft tissue abnormality is identified. L1-L2: There is no disc bulge. There is no central canal stenosis. There is no facet osteoarthritis. There is no neural foraminal stenosis. L2-L3: There is no disc bulge. There is no central canal stenosis. There is no facet osteoarthritis. There is no neural foraminal stenosis. L3-L4: There is no disc bulge. There is no central canal stenosis. There is no facet osteoarthritis. There is no neural foraminal stenosis. L4-L5: There is no disc bulge. There is no central canal stenosis. There is no facet osteoarthritis. There is no neural foraminal stenosis. L5-S1: There is diffuse disc bulge, asymmetric to the left. There is no central canal stenosis. There is no facet osteoarthritis. There is moderate left neural foraminal stenosis. Procedure Note Caprice Cooley MD - 08/23/2017 This is a summary report. The complete report is available in thepatient's medical record. If you cannot access the medical record, pleasecontact the sending organization for a detailed fax or copy. EXAMINATION: Magnetic resonance imaging (MRI) of the lumbar spine withoutcontrast HISTORY: Lower back pain TECHNIQUE: MRI of the lumbar spine was performed without contrastaccording to standard protocol. FINDINGS: No prior study is available for comparison at the time of thisdictation. The alignment is normal. Vertebral bodies are normal in height withoutevidence of compression fractures. There are Modic type I degenerativeendplate changes at L5-S1. The conus medullaris terminates at the level naO80-C5 and the distal spinal cord signal intensity is normal. The L5-S1 intervertebral disc is severelyreduced in height with disc desiccation. The other intervertebral disc arenormal in height. No soft tissue abnormality is identified. L1-L2: There is no disc bulge. There is no central canal stenosis. Thereis no facet osteoarthritis. There is no neural foraminal stenosis. L2-L3: There is no disc bulge. There is no central canal stenosis. Thereis no facet osteoarthritis. There is no neural foraminal stenosis. L3-L4: There is no disc bulge. There is no central canal stenosis. Thereis no facet osteoarthritis. There is no neural foraminal stenosis. L4-L5: There is no disc bulge. There is no central canal stenosis. Thereis no facet osteoarthritis. There is no neural foraminal stenosis. L5-S1: There is diffuse disc bulge, asymmetric to the left. There is nocentral canal stenosis. There is no facet osteoarthritis. There ismoderate left neural foraminal stenosis. IMPRESSION IMPRESSION: 1. L5-S1 degenerative disc disease resulting in moderate left neuralforaminal stenosis at this level. This report was approved by Jeffry Blake M.D. on 04/16/2017 9:[address] CAPRICE Pascual M.D. have personally reviewed and interpreted thisexamination/study. This report was electronically signed by CAPRICE COOLEY M.D. on04/16/2017 10:11 AM . Roxana Logan MD MR ORDERABLES * CT CHEST ABDOMEN PELVIS W CONT (10/26/2016 4:30 PM CDT) Anatomical Region Laterality Modality Chest, Abdomen, Pelvis Other Impressions 11/01/2016 8:16 PM CDT IMPRESSION: 1. Prominent cervix. Otherwise no CT evidence of malignancy in the chest, abdomen, or pelvis. If there is high clinical suspicion, correlation with clinical examination is recommended. 2. Crescentic hyperdensity in the gallbladder neck is unchanged since 2012. This may represent a partially calcified gallstone or gallbladder wall calcification. This can be further evaluated with right upper quadrant sonogram. Report dictated by Vera Landeros M.D. (Resident). Dr. Alcira Pascual M.D. have personally reviewed and interpreted this examination/study. This report was electronically signed by Alcira WALTER M.D. ??on 11/01/2016 8:16 PM . Narrative 11/01/2016 8:16 PM CDT EXAMINATION: Computed tomography (CT) of the chest, abdomen, and pelvis with contrast HISTORY: 36-year-old female with loss of weight, pain , abnormal antibodies, on Imuran. Concern for possible occult malignancy. TECHNIQUE: CT of the chest, abdomen, and pelvis was performed after the uneventful administration of 100 mL Omnipaque 350 intravenous contrast according to standard protocol. COMPARISON: Comparison is made with the CT chest from 01/19/2013. FINDINGS: Vascular: There is a left-sided three-vessel aortic arch. The aorta and main pulmonary arteries are normal in course and caliber. Chest: The lungs are clear of focal consolidation. No pleural effusion or focal pleural thickening is identified. There is no evidence of pneumothorax. No suspicious pulmonary nodules are seen. The heart size is normal. No pericardial effusion is present. The trachea is patent and midline. The remaining mediastinal structures appear normal. No mediastinal, hilar, supraclavicular, or axillary lymphadenopathy is seen. The thyroid gland appears mildly enlarged and enhances homogenously. Abdomen/Pelvis: The liver enhances homogenously. No focal intrahepatic lesions are seen. A small diverticulum is present at the gallbladder fundus. Crescentic hyperdensity in the gallbladder neck (image 96 series 3) is unchanged and may represent a partially calcified gallstone or gallbladder wall calcification. The intrahepatic and extrahepatic bile ducts are nondilated. The spleen enhances homogenously without focal lesions. The pancreas and adrenal glands are normal. The kidneys enhance symmetrically. Mild cortical scarring is seen in the right kidney upper pole. There is no evidence of renal calculi or hydronephrosis. The stomach, small bowel, and large bowel are normal in caliber without evidence of wall thickening or obstruction. A normal appendix is identified in the right lower quadrant (image 155 series 3). There is no retroperitoneal or mesenteric lymphadenopathy. No free air or free fluid is identified within the abdomen. The bladder is distended with fluid and appears normal. The uterus is normal. The region of the cervix appears prominent. Trace free pelvic fluid is seen, likely physiologic. The ovaries are normal. Subcentimeter bilateral iliac chain lymph nodes are noted. Osseous: Bone windows demonstrate no suspicious lytic or blastic lesions. Schmorl's nodes are seen in the lower thoracic spine. There is moderate degenerative disc disease at L5-S1. Procedure Note Janeen Walter MD - 08/23/2017 EXAMINATION: Computed tomography (CT) of the chest, abdomen, and pelviswith contrast HISTORY: 36-year-old female with loss of weight, pain , abnormalantibodies, on Imuran. Concern for possible occult malignancy. TECHNIQUE: CT of the chest, abdomen, and pelvis was performed after theuneventful administration of 100 mL Omnipaque 350 intravenous contrastaccording to standard protocol. COMPARISON: Comparison is made with the CT chest from 01/19/2013. FINDINGS: Vascular: There is a left-sided three-vessel aortic arch. The aorta and mainpulmonary arteries are normal in course and caliber. Chest: The lungs are clear of focal consolidation. No pleural effusion or focalpleural thickening is identified. There is no evidence of pneumothorax. Nosuspicious pulmonary nodules are seen. The heart size is normal. No pericardial effusion is present. The tracheais patent and midline. The remaining mediastinal structures appear normal.No mediastinal, hilar, supraclavicular, or axillary lymphadenopathy isseen. The thyroid gland appears mildly enlarged and enhances homogenously. Abdomen/Pelvis: The liver enhances homogenously. No focal intrahepatic lesions are seen. Asmall diverticulum is present at the gallbladder fundus. Crescentichyperdensity in the gallbladder neck (image 96 series 3) is unchanged andmay represent a partially calcified gallstone or gallbladder wall calcification. The intrahepatic andextrahepatic bile ducts are nondilated. The spleen enhances homogenouslywithout focal lesions. The pancreas and adrenal glands are normal. Thekidneys enhance symmetrically. Mild cortical scarring is seen in the right kidney upper pole. There is no evidence ofrenal calculi or hydronephrosis. The stomach, small bowel, and large bowel are normal in caliber withoutevidence of wall thickening or obstruction. A normal appendix isidentified in the right lower quadrant (image 155 series 3). There is noretroperitoneal or mesenteric lymphadenopathy. No free air or free fluid is identified within theabdomen. The bladder is distended with fluid and appears normal. The uterus isnormal. The region of the cervix appears prominent. Trace free pelvicfluid is seen, likely physiologic. The ovaries are normal. Subcentimeterbilateral iliac chain lymph nodes are noted. Osseous: Bone windows demonstrate no suspicious lytic or blastic lesions. Schmorl'snodes are seen in the lower thoracic spine. There is moderate degenerativedisc disease at L5-S1. IMPRESSION IMPRESSION: 1. Prominent cervix. Otherwise no CT evidence of malignancy in the chest,abdomen, or pelvis. If there is high clinical suspicion, correlation withclinical examination is recommended. 2. Crescentic hyperdensity in the gallbladder neck is unchanged [id number]. This may represent a partially calcified gallstone or gallbladderwall calcification. This can be further evaluated with right upperquadrant sonogram. Report dictated by Vera Landeros M.D. (Resident). Dr. Alcira Pascual M.D. have personally reviewed and interpreted thisexamination/study. This report was electronically signed by Alcira WALTER M.D. on11/01/2016 8:16 PM . Roxana Logan MD CT ORDERABLES * MRI BRAIN WWO CONTRAST (10/26/2016 3:52 PM CDT) Anatomical Region Laterality Modality Head Other Impressions 10/27/2016 9:12 AM CDT IMPRESSION: 1. Normal examination of the brain. This report was approved ??by Vera Landeros M.D. ?? on 10/27/2016 8:[address] CAPRICE Pascual M.D. have personally reviewed and interpreted this examination/study. This report was electronically signed by CAPRICE COOLEY M.D. ??on 10/27/2016 9:12 AM . Narrative 10/27/2016 9:12 AM CDT EXAMINATION: Magnetic resonance imaging (MRI) of the brain without and with contrast HISTORY: 36-year-old female with weakness. Concern for occult malignancy. TECHNIQUE: MRI of the brain was performed prior to and following the uneventful administration of 7 mL Gadavist intravenous gadolinium contrast according to standard protocol. FINDINGS: Comparison is made to the MRI brain from 08/28/2011. No evidence of acute or chronic hemorrhage is identified. No evidence of acute cerebral infarction is seen. The ventricles are of normal size, shape, and morphology. No mass effect or midline shift is seen. No enhancing lesions are identified. The corpus callosum and sella appear normal. The posterior fossa, brainstem, and craniocervical junction appear normal. The visualized portions of the orbits, paranasal sinuses, and mastoids appear normal. Normal flow voids are demonstrated in the carotid arteries and basilar artery. The calvarium and visualized cervical spine appear normal. Procedure Note Caprice Cooley MD - 08/23/2017 EXAMINATION: Magnetic resonance imaging (MRI) of the brain without andwith contrast HISTORY: 36-year-old female with weakness. Concern for occultmalignancy. TECHNIQUE: MRI of the brain was performed prior to and following theuneventful administration of 7 mL Gadavist intravenous gadolinium contrastaccording to standard protocol. FINDINGS: Comparison is made to the MRI brain from 08/28/2011. No evidence of acute or chronic hemorrhage is identified. No evidence ofacute cerebral infarction is seen. The ventricles are of normal size,shape, and morphology. No mass effect or midline shift is seen. Noenhancing lesions are identified. The corpus callosum and sella appear normal. The posterior fossa, brainstem, andcraniocervical junction appear normal. The visualized portions of the orbits, paranasal sinuses, and mastoidsappear normal. Normal flow voids are demonstrated in the carotid arteriesand basilar artery. The calvarium and visualized cervical spine appearnormal. IMPRESSION IMPRESSION: 1. Normal examination of the brain. This report was approved by Vera Landeros M.D. on 10/27/2016 8:47 AM. I, Dr. CAPRICE COOLEY M.D. have personally reviewed and interpreted thisexamination/study. This report was electronically signed by CAPRICE COOLEY M.D. on 10/27/20169:12 AM . Roxana Logan MD MR ORDERABLES * CREATININE BLOOD - POCT (IP) [facility] (10/26/2016) Creatinine POCT 0.78 0.3 - 1.3 mg/dL [facility] eGFR POCT 60 60 ml/min [facility] 10/26/2016 Roxana Logan MD LAB - POINT OF CARE ORDERABLES [facility] * (ABNORMAL) GLUTAMIC ACID DECARBOXYLASE (CARLENE) ANTIBODY (10/09/2016 9:49 AM CDT) CARLENE-65 >250.0(H) 0.0 - 5.0 U/mL [facility] (BEAKER) Blood specimen (specimen) BLOOD SPECIMEN / Unknown 10/09/2016 9:49 AM CDT 10/09/2016 10:42 AM CDT Narrative [facility] ([facility]) - 10/11/2016 3:19 PM CDT Performed at: ??01 - [address] ??[id number] Hydraulic Dredge Operator: Ben Pollack MD, Phone: ??[phone] Roxana Logan MD LAB - SEROLOGY ORDER JORGE LUIS Performing Organization Address City/[facility]/ZIP Co de Phone Number [facility] ([facility]) * LAB HISTORICAL RESULTS-ONBASE (09/21/2016) Only the most recent of9 resultswithin the time period is included. 09/21/2016 Historical Provider LAB - CHEMISTRY O RDERATRACY Performing Organization Address [facility] Co de Phone Number [address] * (ABNORMAL) GLUCOSE (03/08/2015 10:27 AM CDT) Pathologist [facility] Glucose 319(H) 65 - 99 mg/dL [facility] ([facility]) Comment: ? Fasting reference interval Test Performed at: [facility] [address] [place] ??[id number] BEN ADAMS DO,MPH Blood specimen (specimen) BLOOD SPECIMEN / Unknown 03/08/2015 10:27 AM CDT 03/08/2015 10:28 AM CDT Roxana Logan MD LAB - CHEMISTRY ORDE RABGALLITO Performing Organization Address [facility]/ZIP Co de Phone Number [facility] ([facility]) * THIOPURINE METHYLTRANSFERASE (08/16/2014 12:12 PM CDT) Pathologist [facility] TPMT Activity 20.4 Units/mL RBC [facility] ([facility]) Comment: Reference Range: Normal: 15.1 - 26.4 Heterozygous for low TPMT variant: 6.3 - 15.0 Homozygous for low TPMT variant: <6.3 Interpretation Comment [facility] Hailee FLORES ([facility]) Comment: The above results can be interpreted as Normal for red blood cell Thiopurine Methyltransferase activity. For patients having an intrinsic low level of TPMT, recent RBC transfusion can variably increase their assayed enzymatic activity depending on the amount and circulating half-life of the transfused red blood cells. Methodology Comment [facility] ([facility]) Comment: Enzymatic Endpoint/Liquid Chromatography - Tandem Mass Spectrometry (LC-MS/MS) Blood specimen (specimen) BLOOD SPECIMEN / Unknown 08/16/2014 12:12 PM CDT 08/16/2014 12:53 PM CDT Narrative [facility] ([facility]) - 08/23/2014 5:13 PM CDT Performed at: ??01 - [facility] [address] [place] [address] ??[id number] Hydraulic Dredge Operator: Jorge Campbell MD, Phone: ??[phone] Roxana Logan MD LAB - CHEMISTRY MEKA VASQUEZ [facility] DANK JUAN JOSE) * CT HEAD WO CONTRAST (07/28/2014 11:49 AM PRIVATE DUTY NURSE) Anatomical Region Laterality Modality Head Other Impressions 07/28/2014 12:01 PM PRIVATE DUTY NURSE IMPRESSION: 1. No acute intracranial process. This report was approved ??by Carlos Menendez M.D. ?? on 07/28/2014 12:00 PM . I, Dr. MANNY CASTILLO M.D. have personally reviewed and interpreted this examination/study. This report was electronically signed by MANNY CASTILLO M.D. ??on 07/28/2014 12:01 PM . Narrative 07/28/2014 12:01 PM PRIVATE DUTY NURSE EXAMINATION: Computed tomography (CT) of the head without contrast HISTORY: Left upper extremity weakness. TECHNIQUE: CT of the head was performed without contrast according to standard protocol. FINDINGS: No prior study is available for comparison. No acute intra- or extra-axial fluid collections are identified. The ventricles are of normal size, shape, and morphology. The basilar cisterns are patent. No mass effect or midline shift is seen. The vallecillo-white matter differentiation is normal. The visualized portions of the orbits, paranasal sinuses, and mastoids appear normal. No acute fracture is identified. Procedure Note Manny Castillo MD - 08/24/2017 EXAMINATION: Computed tomography (CT) of the head without contrast HISTORY: Left upper extremity weakness. TECHNIQUE: CT of the head was performed without contrast according tostandard protocol. FINDINGS: No prior study is available for comparison. No acute intra- or extra-axial fluid collections are identified. Theventricles are of normal size, shape, and morphology. The basilar cisternsare patent. No mass effect or midline shift is seen. The vallecillo-white matterdifferentiation is normal. The visualized portions of the orbits, paranasal sinuses, and mastoids appearnormal. No acute fracture is identified. IMPRESSION IMPRESSION: 1. No acute intracranial process. This report was approved by Carlos Menendez M.D. on 07/28/2014 12:00 PM. I, Dr. MANNY CASTILLO M.D. have personally reviewed and interpreted thisexamination/study. This report was electronically signed by MANNY CASTILLO M.D. on 07/28/201412:01 PM . Loan Suazo MD CT ORDERABLES * (ABNORMAL) GLUCOSE ACCUCHECK (02/27/2013 10:46 AM CDT) Only the most recent of54 resultswithin the time period is included. Glucose, Fingerstick 199(H) 70 - 110 MG/DL [facility] Comment:PERFORMED BY: CHRISTIN ORR 02/27/2013 10:4 6 AM CDT 02/27/2013 4:35 PM CDT Roxana Logan MD LAB - CHEMISTRY MEKA VASQUEZ [address] [phone] * (ABNORMAL) CALCIUM IONIZED WHOLE BLOOD (02/27/2013 6:08 AM CDT) Only the most recent of3 resultswithin the time period is included. Ionized Calcium Whole Blood 1.19 MMOL/L [facility] Whole Blood PH 7.39 7.35 - 7.45 [facility] Adjusted Ionized Calcium 1.18(L) 1.19 - 1.34 mmol/L [facility] 02/27/2013 6:08 AM CDT 02/27/2013 6:20 AM CDT Roxana Logan MD LAB - CHEMISTRY MEKA VASQUEZ [address] [phone] * (ABNORMAL) PTH INTACT W/O CALCIUM (02/27/2013 6:08 AM CDT) PTH Intact 84(H) 10 - 72 pg/mL [facility] Comment: PTH INTERP GRAPH ?+-------+-------+-------+-------+--------+ P ??>400 + ??. . . . . . . S ?P. . . + T ? + . . . . . . . .S ?P . . . .+ H ?? 200 +. . . . . . . . S ? P . . . .P+ ?+ . . . . . . . .S ?P . . . P ??+ I ?? 100 +. . . . . . . . S ? P .. .. P ?? + N ? + . . . . . . . .S ? P. .. .P ?+ T ?76 +. . . . . . . . S ? P. . .P ? + A ?74 +. . . . . . . . S ? P.. .P ?+ C ?72 +S S S S S S A-L-C +P.P ?+ T ?70 + ?+ ? + ? + ?+ ?+ ? + ? + p ?50 + ?+ ?NORMAL ? + ? + g ? + ?+ ?Ca/PTH ? + ? + / ?30 + ?+ ? + ? + m ? + ?+ ? + ? + L ?10 +H H H H H H H M M M M M M M + ?+. . . . . .. H ?M . . . . . . . + ?+. . . . . .. H ?M . . . . . . . + ?+ . . . . . . .H ? M ??. . . . . . .+ ?+... . . . . . H ? M . . . . . . . + ? 0 ++------+---------+----+---------+------+ ?4 ?8 ? 9 ?? 10 ?11 ? 15 ?Total Calcium (mg/dL) ? Box = Reference Interval ? P = Primary Hyperparathyroidism ? S = Secondary Hyperparathyroidism ? H = Hypoparathyroidism ? M = Hypercalcemia of Malignancy ?THIS GRAPH IS INTENDED AN INTERPRETIVE GUIDE ONLY Plasma specimen (specimen) 02/27/2013 6:08 AM CDT 02/27/2013 6:37 AM CDT Roxana Logan MD LAB - CHEMISTRY MEKA VASQUEZ Performing Organization Address [facility]/State/[facility] Co mi Phone Number [address] [phone] * VITAMIN D 1,25 DIHYDROXY (02/27/2013 6:08 AM CDT) Vitamin D 1,25-Dihydroxy 45.2 10.0 - 75.0 pg/mL [facility] Comment: Performed at: ??BN - [facility] [address] ??[id number] Hydraulic Dredge Operator: Ben Pollack MD, Phone: ??[phone] Venous blood specimen (specimen) 02/27/2013 6:08 AM CDT 02/27/2013 6:37 AM CDT Roxana Logan MD LAB - CHEMISTRY MEKA VASQUEZ Performing Organization Address City/[facility] [place] [address], [facility] [phone] * (ABNORMAL) VITAMIN D 25-HYDROXY (02/27/2013 6:08 AM CDT) Vitamin D, 25 Hydroxy 13.7(L) >30 ng/mL [facility] Comment: The recommendations for 25-Hydroxy Vitamin D clinical decision points are as follows: Deficient: ?< 20 ng/mL Insufficient: ?20 - 30 ng/mL Sufficient: ? > 30 ng/mL If the vitamin D results are inconsistent with clinical evidence, it is recommended that additional testing such as LC/MS/MS be performed to confirm the result. ?? This is particularly important when subtherapeutic results are observed in patients who are receiving vitamin D2 supplementation. Venous blood specimen (specimen) 02/27/2013 6:08 AM CDT 02/27/2013 6:37 AM CDT Roxana Logan MD LAB - CHEMISTRY BRINDADione VASQUEZ Performing Organization Address [facility] de Phone Number [address] [phone] * XR CHEST 1VW PORTABLE (02/26/2013 5:05 AM CDT) Only the most recent of4 resultswithin the time period is included. Anatomical Region Laterality Modality Chest Other Impressions 02/26/2013 4:14 PM CDT Impression: No significant interval change. This report was electronically signed by TIEN SAUER M.D. ??on 02/26/2013 4:14 PM . Narrative 02/26/2013 4:14 PM CDT Upright AP chest performed at 5:09 AM on 02/26/2013. Comparison: 02/25/2013. History: chest tube. Findings: The right internal jugular central line and right chest tube are unchanged in position. Low lung volumes are present with mild right basilar atelectasis. There is no pleural effusion. No definite pneumothorax is identified. Procedure Note Tien Sauer MD - 08/25/2017 Upright AP chest performed at 5:09 AM on 02/26/2013. Comparison: 02/25/2013. History: chest tube. Findings: The right internal jugular central line and right chest tube areunchanged in position. Low lung volumes are present with mild rightbasilar atelectasis. There is no pleural effusion. No definitepneumothorax is identified. IMPRESSION Impression: No significant interval change. This report was electronically signed by TIEN SAUER M.D. on02/26/2013 4:14 PM . Roxana Logan MD DIAGNOSTIC IMAGING O RDERABLES * PATHOLOGY TISSUE (02/25/2013 12:23 PM CDT) Only the most recent of3 resultswithin the time period is included. AP Surg () [facility] Comment: CLINICAL HISTORY: The patient is a 32-year-old female with diabetic ketoacidosis, myasthenia gravis, diabetes mellitus, TSH deficiency, dysphagia, constipation, myasthenia gravis with acute exacerbation. FINAL DIAGNOSIS: THYMUS, THORACOSCOPIC THYMECTOMY: - THYMIC HYPERPLASIA, MILD - NORMAL THYROID TISSUE GROSS DESCRIPTION: The specimens are submitted in two formalin-filled containers labeled with the patient's name Milagro Duarte for gross and microscopic examination. Specimen A, thymus , is a pink 15 x 8 x 0.5 cm soft, bluish-purple, tissue with attached yellow fat. ??The specimen is inked black and advertising representative sections are submitted in cassettes A1 ? A4. Specimen B, cervical thymic crest , consists of a single soft bluish-purple soft tissue nodule measuring 0.5 cm. ??The specimen is submitted in toto in cassette B1. LOSS CONTROL CONSULTANT/gbo MICROSCOPIC DESCRIPTION: The microscopic examination of specimen A, thymus shows persistent thymic tissue with occasional lymph follicles with germinal centers. ??Hassall's corpuscles ??are also focally present. No neoplastic or malignant changes are identified Specimen B, cervical thymic crest shows normal thyroid tissue. JG/LOSS CONTROL CONSULTANT/ls The performance characteristics of all immunohistochemical and indirect immunofluorescence stains (if any) cited in this report were determined by the [facility] in compliance with CLIA '88 regulations. ??Some of these tests rely on the use of analyte-specific reagents and are subject to specific labeling requirements by the FDA. ??Such tests were developed by the [facility] and have not been cleared or approved by the FDA. ??The FDA has determined that such clearance or approval is not necessary. These tests are used for clinical purposes and should not be regarded as investigational or for research. This case has been personally reviewed and interpreted by the attending (teaching) pathologist. Final Diagnosis performed by Kahlil Zavala MD. Electronically signed 02/27/2013 02/25/2013 12:2 3 PM CDT 02/25/2013 2:57 PM CDT Randee Trevino MD LAB - PATHOLOGY/CYT OLOGY ORDERABLES Performing Organization Address [facility] Co de Phone Number [address] [phone] * LACTIC ACID WHOLE BLOOD (02/25/2013 11:10 AM CDT) Only the most recent of2 resultswithin the time period is included. Lactic Acid-Stat 1.0 0.5 - 3.4 mmol/L [facility] Blood specimen (specimen) 02/25/2013 11:10 AM CDT 02/25/2013 11:37 AM CDT Randee Trevino MD LAB - CHEMISTRY ORD ERABLES Performing Organization Address [facility] Co de Phone Number [address] [phone] * CHLORIDE WHOLE BLOOD (02/25/2013 11:10 AM CDT) Only the most recent of2 resultswithin the time period is included. Whole Blood CL 111 101 - 111 MMOL/L [facility] 02/25/2013 11:1 0 AM CDT 02/25/2013 11:37 AM CDT Randee Trevino MD LAB - CHEMISTRY ORD ERABLES Performing Organization Address [facility]/State/ZIP Co de Phone Number [address] [phone] * POTASSIUM WHOLE BLD (02/25/2013 11:10 AM CDT) Only the most recent of2 resultswithin the time period is included. Potassium 4.0 3.5 - 5.5 mmol/L [facility] 02/25/2013 11:1 0 AM CDT 02/25/2013 11:37 AM CDT Randee Trevino MD LAB - CHEMISTRY ORD ERABLES [address] [phone] * SODIUM WHOLE BLOOD (02/25/2013 11:10 AM CDT) Only the most recent of2 resultswithin the time period is included. Pathologist [facility] Sodium Whole Blood 141 135 - 145 mmol/L [facility] 02/25/2013 11:1 0 AM CDT 02/25/2013 11:37 AM CDT Randee Trevino MD LAB - CHEMISTRY ORD ERABLES [address] [phone] * (ABNORMAL) BLOOD GASES ART (02/25/2013 11:10 AM CDT) Only the most recent of2 resultswithin the time period is included. pH Arterial 7.28(L) 7.35 - 7.45 [facility] pCO2 Arterial 52(H) 35 - 45 mmHg [facility] pO2 Arterial 97 82 - 106 mmHg [facility] HCO3 Arterial 23.8 22 - 26 mEq/L [facility] TCO2 Arterial 25.4 25 - 29 mEq/L [facility] Base Excess Arterial -2.8(L) -2 - 2 [facility] Hemoglobin Arterial 11.9(L) 12.0 - 15.5 g/dL [facility] Oxyhemoglobin Arterial 93.9(L) 95.0 - 100.0 % [facility] Carboxyhemoglobin 1.8 0 - 3 % [facility] Methemoglobin 1.6 0 - 2.0 % [facility] FI O2 Arterial 90 [facility] Arterial blood specimen (specimen) 02/25/2013 11:10 AM CDT 02/25/2013 11:37 AM CDT Narrative [facility] - 02/25/2013 11:43 AM CDT FIO2->90 FiO2->OTHER 90 Randee Trevino MD LAB - BLOOD GASES O RDERABLES [address] [phone] * (ABNORMAL) GLUCOSE WHOLE BLOOD (02/25/2013 11:10 AM CDT) Only the most recent of2 resultswithin the time period is included. Glucose 188(H) 70 - 110 mg/dL [facility] 02/25/2013 11:1 0 AM CDT 02/25/2013 11:37 AM CDT Randee Trevino MD LAB - CHEMISTRY ORD ERABLES Performing Organization Address City/[facility]/ZIP Co de Phone Number [address] [phone] * (ABNORMAL) URINALYSIS W/MICROSCOPIC NO CULTURE (02/25/2013 10:00 AM CDT) Only the most recent of3 resultswithin the time period is included. Color UA YELLOW STRW,YELLOW [facility] Clarity UA CLEAR CLEAR [facility] Specific [place] Urine 1.014 1.001 - 1.030 [facility] pH UA <= 5.0 5.0 - 8.0 [facility] Protein UA NEGATIVE <20 mg/dL [facility] Glucose UA 50(A) NEGATIVE mg/dL [facility] Ketones NEGATIVE NEGATIVE mg/dL [facility] Bilirubin UA NEGATIVE NEGATIVE mg/dL [facility] Blood UA NEGATIVE NEGATIVE [facility] Nitrite UA NEGATIVE NEGATIVE [facility] Leukocyte Esterase NEGATIVE NEGATIVE [facility] Urobilinogen UA < 2.0 <2.0 mg/dL [facility] RBC Urine 1 0 - 8 /HPF [facility] WBC Urine 1 0 - 2 /HPF [facility] Squamous Epithelial Cells UA 2(H) 0 - 1 /HPF [facility] Mucus Urine OCCASIONAL( A) NONE SEEN /LPF [facility] Hyaline Casts UA 1 0 - 2 /LPF [facility] Urine specimen (specimen) 02/25/2013 10:00 AM CDT 02/25/2013 11:05 AM CDT Randee Trevino MD LAB - URINALYSIS OR DERABLES Performing Organization Address [facility] Co de Phone Number [address] [phone] * PREPARE FFP UNIT(S) (02/24/2013 10:30 PM CDT) Blood Product [id number] ?B+ ?FFP-T ? TRANSFUSED ? 02/25/13 0213 ?? [facility] 02/24/2013 10:3 0 PM CDT 02/24/2013 10:30 PM CDT Roxana Logan MD LAB - BLOOD BANK ORD ERABLES Performing Organization Address [facility] Co de Phone Number [address] [phone] * PTT [facility] (02/24/2013 7:30 PM CDT) Only the most recent of2 resultswithin the time period is included. APTT 38.4 23.0 - 38.4 SECONDS [facility] Comment: SUGGESTED THERAPEUTIC RANGE FOR FULL DOSE I.V. HEPARIN THERAPY FOR VENOUS THROMBOEMBOLISM IS 66.0 - 91.0 SECONDS, WITH AN APTT RATIO OF 2.1 - 3.0. APTT Ratio 1.25 [facility] Plasma specimen (specimen) 02/24/2013 7:30 PM CDT 02/24/2013 7:51 PM CDT Narrative [facility] - 02/24/2013 8:12 PM CDT Is patient on Heparin, Argatroban or Dabigatran?->N IS PATIENT ON HEPARIN? (Y OR N) N Roxana Logan MD LAB - COAGULATION OR DERABLES Performing Organization Address [facility]/State/ZIP Co de Phone Number [facility] [address] [place] [address], [facility] [phone] * CROSSMATCH RBC LEUKOREDUCED (02/24/2013 1:26 PM CDT) Only the most recent of2 resultswithin the time period is included. [facility] Blood Product [id number] ?B+ ?RBC-WBCD ? XM COMPATIBLE ? [id number] ?B+ ?RBC-WBCD ? XM COMPATIBLE ? [id number] ?B+ ?RBC-WBCD ? XM COMPATIBLE ? [id number] ?B+ ?RBC-WBCD ? XM COMPATIBLE ? [facility] 02/24/2013 1:26 PM CDT 02/24/2013 1:39 PM CDT Roxana Logan MD LAB - BLOOD BANK ORD ERABLES Performing Organization Address [facility]/ZIP Co de Phone Number [address] [phone] * TSH (01/20/2013 11:00 AM CDT) Only the most recent of3 resultswithin the time period is included. TSH 0.530 0.350 - 4.940 uIU/mL [facility] Venous blood specimen (specimen) 01/20/2013 11:00 AM CDT 01/20/2013 12:12 PM CDT Roxana Logan MD LAB - CHEMISTRY MEKA VASQUEZ Performing Organization Address [facility] Co de Phone Number [address] [phone] * T4 FREE (01/20/2013 11:00 AM CDT) Only the most recent of3 resultswithin the time period is included. T4 Free 1.1 0.7 - 1.5 ng/dL [facility] Venous blood specimen (specimen) 01/20/2013 11:00 AM CDT 01/20/2013 12:12 PM CDT Roxana Logan MD LAB - CHEMISTRY MEKA VASQUEZ Performing Organization Address [facility] Co de Phone Number [address] [phone] * CT CHEST W CONTRAST (01/19/2013 6:55 PM CDT) Anatomical Region Laterality Modality Chest Other Impressions 01/20/2013 12:47 PM CDT IMPRESSION: Interval resolution of left upper lobe groundglass nodule. Cholelithiasis. This report was approved ??by Eddi Fisher M.D. ?? on 01/20/2013 11:42 AM . I, Dr. TIEN SAUER M.D. have personally reviewed and interpreted this examination/study. This report was electronically signed by TIEN SAUER M.D. ??on 01/20/2013 12:47 PM . Narrative 01/20/2013 12:47 PM CDT EXAMINATION: Computed tomography of the chest with contrast HISTORY: Left upper lobe groundglass nodule. TECHNIQUE: Computed tomography of the chest was performed following the uneventful administration of 100 mL Omnipaque 350 intravenous contrast according to standard protocol. FINDINGS: Comparison is made to chest CT dated 08/29/2011. The lungs are clear of pneumonic consolidation, suspicious pulmonary nodules, effusion, or pneumothorax. Specifically, previously described left upper lobe groundglass nodule is not seen on this exam. Minimal bibasilar atelectasis present. The heart size is normal without pericardial effusion. The great vessels are normal in size and configuration. No lymphadenopathy is identified. Calcified right hilar lymph nodes are noted. Soft tissue density in anterior mediastinum likely represents residual thymic tissue. A crescentic hyperdensity in the dependent gallbladder may represent a partially calcified gallstone. No intrahepatic or extrahepatic biliary dilatation is seen. No pericholecystic fluid or gallbladder wall thickening is identified. The liver, spleen, pancreas, adrenal glands and visualized kidneys are normal. Bone windows demonstrate no suspicious lytic or blastic lesions. Procedure Note Tien Sauer MD - 08/25/2017 EXAMINATION: Computed tomography of the chest with contrast HISTORY: Left upper lobe groundglass nodule. TECHNIQUE: Computed tomography of the chest was performed following theuneventful administration of 100 mL Omnipaque 350 intravenous contrastaccording to standard protocol. FINDINGS: Comparison is made to chest CT dated 08/29/2011. The lungs are clear of pneumonic consolidation, suspicious pulmonarynodules, effusion, or pneumothorax. Specifically, previously describedleft upper lobe groundglass nodule is not seen on this exam. Minimalbibasilar atelectasis present. The heart size is normal without pericardial effusion. The great vessels are normal insize and configuration. No lymphadenopathy is identified. Calcified righthilar lymph nodes are noted. Soft tissue density in anterior mediastinumlikely represents residual thymic tissue. A crescentic hyperdensity in the dependent gallbladder may represent apartially calcified gallstone. No intrahepatic or extrahepatic biliarydilatation is seen. No pericholecystic fluid or gallbladder wallthickening is identified. The liver, spleen, pancreas, adrenal glands and visualized kidneys are normal. Bone windows demonstrate no suspicious lytic or blastic lesions. IMPRESSION IMPRESSION: Interval resolution of left upper lobe groundglass nodule. Cholelithiasis. This report was approved by Eddi Fisher M.D. on 01/20/2013 11:42 AM. I, Dr. TIEN SAUER M.D. have personally reviewed and interpreted thisexamination/study. This report was electronically signed by TIEN SAUER M.D. on01/20/2013 12:47 PM . Roxana Logan MD CT ORDERABLES * IGA BLOOD (01/19/2013 3:14 PM CDT) Pathologist [facility] IgA 333 87 - 534 mg/dL [facility] Venous blood specimen (specimen) 01/19/2013 3:14 PM CDT 01/19/2013 3:57 PM CDT Roxana Logan MD LAB - CHEMISTRY MEKA VASQUEZ Performing Organization Address City/[facility] Co de Phone Number [address] [phone] * T3 TOTAL (01/07/2012 9:30 AM CDT) Pathologist [facility] T3 Total 72 45 - 137 ng/dL [facility] Serum 01/07/2012 9:30 AM CDT 01/07/2012 10:21 AM CDT Denny Flores MD LAB - CHEMISTRY MEKA VASQUEZ Performing Organization Address [facility] Co de Phone Number [address] [phone] * CK + CKMB PANEL (01/06/2012 8:05 AM CDT) Only the most recent of3 resultswithin the time period is included. Pathologist [facility] CK Total 33 30 - 200 Units/L [facility] CK-MB 2.2 0.0 - 6.6 ng/mL [facility] Comment: ? CKMB Reference Range 6.6 ng/mL or greater = Positive For indeterminate results, additional specimen(s) for CKMB, drawn at least one hour apart, may aid diagnosis. Positive CKMB results should be clinically interpreted in combination with total CK serum level. ??In patients without cardiac muscle damage, CKMB (ng/mL) is generally <2.5% of total CK enzyme activity (Units/L). Virtually all patients with acute myocardial infarction have CKMB values 6.6 ng/mL or greater for samples drawn at least 8-12 hours after the onset of chest pain. ??CKMB values generally remain elevated for 2-3 days. 01/06/2012 8:05 AM CDT 01/06/2012 8:20 AM CDT Bonilla Gordon MD LAB - CHEMISTRY ORD ERABLES Performing Organization Address City/[facility]/ZIP Co de Phone Number [address] [phone] * CULTURE BLOOD (01/06/2012 12:15 AM CDT) Only the most recent of4 resultswithin the time period is included. Culture Blood NO GROWTH AFTER 5 DAYS. [facility] Blood specimen (specimen) (Venous, Peripheral) 01/06/2012 12:15 AM CDT 01/06/2012 1:32 AM CDT Narrative [facility] - 01/06/2012 1:32 AM CDT Draw 15 minutes after Culture 1 from a different site Specimen Type->Blood Bonilla Gordon MD LAB - MICROBIOLOGY ORDERABLES Performing Organization Address [facility] Co de Phone Number [address] [phone] * LIPASE BLOOD (01/06/2012 12:00 AM CDT) Only the most recent of2 resultswithin the time period is included. Lipase 21 8 - 78 Units/L [facility] Serum 01/06/2012 01/06/2012 12: 49 AM CDT Bonilla Gordon MD LAB - CHEMISTRY ORD ERABLES Performing Organization Address [facility]/ZIP Co de Phone Number [address] [phone] * AMYLASE BLOOD (01/06/2012 12:00 AM CDT) Amylase 90 25 - 125 Units/L [facility] Serum 01/06/2012 01/06/2012 12: 49 AM CDT Bonilla Gordon MD LAB - CHEMISTRY ORD ERABLES Performing Organization Address [facility]/ZIP Co de Phone Number [address] [phone] * LACTIC ACID BLOOD (01/05/2012 9:20 PM CDT) Only the most recent of2 resultswithin the time period is included. Lactic Acid-Stat 1.6 0.5 - 2.2 mmol/L [facility] 01/05/2012 9:20 PM CDT 01/05/2012 9:30 PM CDT Historical Provider LAB - CHEMISTRY O RDERABLES Performing Organization Address [facility] Co de Phone Number [address] [phone] * (ABNORMAL) URINALYSIS REFLEX TO MICROSCOPIC NO CULTURE (01/05/2012 8:30 PM CDT) Only the most recent of2 resultswithin the time period is included. Color UA YELLOW STRW,YELLOW [facility] Clarity UA CLEAR CLEAR [facility] Specific [place] Urine 1.021 1.001 - 1.030 [facility] pH UA 5.5 5.0 - 8.0 [facility] Protein UA 70(A) <20 mg/dL [facility] Glucose UA 1000(A) NEGATIVE mg/dL [facility] Ketones >80(A) NEGATIVE mg/dL [facility] Bilirubin UA NEGATIVE NEGATIVE mg/dL [facility] Blood UA TRACE(A) NEGATIVE [facility] Nitrite UA NEGATIVE NEGATIVE [facility] Leukocyte Esterase SMALL(A) NEGATIVE [facility] Urobilinogen UA < 2.0 <2.0 mg/dL [facility] UA Micro Reflex YES [facility] Urine specimen (specimen) 01/05/2012 8:30 PM CDT 01/05/2012 8:57 PM CDT Bonilla Gordon MD LAB - URINALYSIS OR DERABLES Performing Organization Address [facility] Co de Phone Number [address] [phone] * GLUCOSE - POINT OF CARE (AMB) [facility] (01/05/2012 4:46 PM CDT) Only the most recent of6 resultswithin the time period is included. Bonilla Gordon MD LAB - POINT OF CARE ORDERABLES Performing Organization Address [facility] Co de Phone Number [facility] RADIOLOG[facility] * HCG BLOOD QUALITATIVE (01/05/2012 2:53 PM CDT) NEGATIVE NEGATIVE [facility] Comment:PERFORMED BY: JOSEF CASTELLON 01/05/2012 2:53 PM CDT 01/05/2012 3:05 PM CDT Bonilla Gordon MD LAB - CHEMISTRY ORD ERABLES Performing Organization Address [facility] Co de Phone Number [address] [phone] * (ABNORMAL) BLOOD GASES SAMI (01/05/2012 2:30 PM CDT) pH Venous 7.23(L) 7.30 - 7.40 [facility] pCO2 Venous 22(L) 40 - 46 mmHg [facility] pO2 Venous 67(H) 35 - 42 mmHg [facility] HCO3 Venous 8.8(L) 22.0 - 26.0 mEq/L [facility] TCO2 Mixed Venous 9.4(L) 25.0 - 29.0 mEq/L [facility] Base Excess Venous -17.5(L) -2 - 2 [facility] Hemoglobin Mixed Venous 15.4(H) 12 - 15 g/dL [facility] Oxyhemoglobin Mixed Venous 91.4(H) 66.0 - 77.0 % [facility] Carboxyhemoglobin 1.8 0.0 - 3.0 % [facility] Methemoglobin 1.5 0.0 - 2.0 % [facility] FI O2 Mixed Venous 21 [facility] Venous blood specimen (specimen) 01/05/2012 2:30 PM CDT 01/05/2012 2:39 PM CDT Narrative [facility] - 01/05/2012 2:39 PM CDT FIO2->21 Osmar Elizalde MD LAB - BLOOD GASES OR DERABLES Performing Organization Address City/[facility]/ZIP Co de Phone Number [address] [phone] * (ABNORMAL) HYDROXYBUTYRATE BETA (01/05/2012 12:50 PM CDT) Beta-Hydroxybu tyrate 4.09(H) 0.02 - 0.27 mmol/L [facility] Venous blood specimen (specimen) 01/05/2012 12:50 PM CDT 01/05/2012 1:14 PM CDT Osmar Elizalde MD LAB - CHEMISTRY ORDE RABLES [address] [phone] * XR ABD OBSTRUCTION SERIES 2VW (01/05/2012 7:52 AM CDT) Anatomical Region Laterality Modality Abdomen Other Impressions 01/05/2012 12:03 PM CDT Impression: Normal bowel gas pattern. IHeydi MD, have personally reviewed and interpreted this examination/study. Report dictated by William Mcneal M.D. (resident athletic trainer). Narrative 01/05/2012 12:03 PM CDT Exam: ??Abdomen, obstructive series Date: Jan 05, 2012 7:52:58 AM Comparison: None available. History: ??abdominal pain, constipation Findings: The bowel gas pattern is normal. There are no dilated loops of bowel. There is no free intraperitoneal air. Air is present in the rectum. Punctate calcifications are present in the mid abdomen most likely representing pancreatic calcifications. The lung bases are clear. The visible osseous structures are intact. Procedure Note Janeen Walter MD - 08/25/2017 Exam: Abdomen, obstructive series Date: Jan 05, 2012 7:52:58 AM Comparison: None available. History: abdominal pain, constipation Findings: The bowel gas pattern is normal. There are no dilated loops ofbowel. There is no free intraperitoneal air. Air is present in the rectum.Punctate calcifications are present in the mid abdomen most likelyrepresenting pancreatic calcifications. The lung bases are clear. The visible osseous structures are intact. IMPRESSION Impression: Normal bowel gas pattern. Heydi Pascual MD, have personally reviewed and interpreted thisexamination/study. Report dictated by William Mcneal M.D. (resident athletic trainer). Osmar Elizalde MD DIAGNOSTIC IMAGING O [facility] Care Teams Head Of It Relationship Specialty Start Date End Date Amelie Freitas MD [address] [place] [address] PCP - General 05/02/22
--- OUTSIDE RECORDS SUMMARY | 2024-06-23 14:52 | XMS_ITS | Clinical Summary ---
Author Organization [facility] [email or web address] Address [address] [place] [address] Care Team Providers Care Semiconductor Processor Name Role Phone Amelie Freitas MD Primary Care Provider + [phone] Source Comments [facility] [email or web address],non-owned Affiliates and Associated Physician Practices is amultiple site organization consisting of ambulatory clinics and hospital sitesin [place], [place], [place] and [place]. This disclosure is being madepursuant to the Care Everywhere program and may not contain all information available regarding this patient. Last updated 18.[facility] [email or web address] Allergies No known active allergies Medications * Be aware that medications may not be up to date on this document. Alwaysverify current medications with the patient. Medication Sig Dispensed Refills Start Date End Date Status insulin lispro (HUMALOG) 100 UNIT/ML vial Inject 8 (eight) Units subcutaneously 01/07/2012 Active insulin glargine (LANTUS) vial Inject 25 (twenty five) Units subcutaneously 01/07/2012 Active lisinopril (PRINIVIL;ZESTRIL) 5 MG tablet Take 1 (one) tablet by mouth once daily Active Continuous Blood Gluc Sensor (FreeStyle Mindy 3 Sensor) MISC USE DIRECTED AND CHANGE ONCE EVERY 14 DAYS 05/12/2022 Active pyRIDostigmine (Mestinon) 60 MG tabletIndications: Myasthenia gravis (HCC) TAKE 1 TABLET BY MOUTH THREE TIMES A DAY 270 tablet 1 08/13/2022 Active Kerendia 10 MG tablet Take 1 (one) tablet by mouth every morning 06/29/2022 Active NovoLOG FLEXPEN pen 08/08/2022 Active DULoxetine (Cymbalta) 60 MG capsule Take 1 (one) capsule by mouth once daily 90 capsule 4 07/16/2023 Active Insulin Disposable Pump (Omnipod 5 G6 Pods, Gen 5,) MISC 09/22/2023 Active clobetasol (Temovate) 0.05 % ointmentIndication s:Other specified dermatitis APPLY TO RASH TWICE DAILY. TWO WEEKS ON FOLLOWED BY ONE WEEK OFF. 30 DAYS SUPPLY. 60 g 2 02/18/2024 Active Additional Information Patient not taking.Reported on 04/20/2024 betamethasone dipropionate (Diprosone) 0.05 % ointmentIndication s:Other allergic contact dermatitis Apply to affected area 2 times daily 50 g 2 04/03/2024 Active Additional Information Patient not taking.Reported on 04/20/2024 DULoxetine (Cymbalta) 60 MG capsule Take 1 (one) capsule by mouth 2 times daily 180 capsule 4 04/20/2024 Active Active Problems Problem Noted Date Diagnosed Date Dizziness 11/14/2023 Near syncope 11/14/2023 Myasthenia gravis 11/14/2023 Swelling of lower extremity 06/26/2022 DVT (deep venous thrombosis) 12/22/2021 Elevated blood-pressure read ing, without diagnosis of hypertension 12/22/2021 Encounter for screening for cardiovascular disor ders 12/22/2021 Leg pain 12/22/2021 Dysphagia 11/10/2012 Polyglandular autoimmune syndrome, type 2 2012 Overview (06/13/2021): Last Assessment & Plan: Characterized by DM1, subclinical hyperthyroidism and premature ovarian failure. Negative 21 hydroxylase antibodies and passed ACTH stimulation test in the past Premature ovarian failure 09/01/2012 Overview (06/13/2021): Last Assessment & Plan: Reports her menstrual cycles have resumed and is now off hormone replacement with normal cycles -checking estradiol and FSH Osteopenia 08/29/2012 Overview (06/13/2021): Last Assessment & Plan: DXA in 2016 showed low bone mass for age. FRAX 1.4% major fx, 0.1% hip fx. -repeating DXA to ensure no ongoing loss of bone density. Would benefit from treatment if more than 5% loss of bone density. 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 -Continue OCP -vitamin D reportedly normal on testing by her neurologist -continue maintenance vitamin D Myasthenia gravis status post thymectomy 013 Thyroid activity decreased 06/18/2012 Subclinical hyperthyroidism 05/30/2012 Overview (06/13/2021): Last Assessment & Plan: -Etiology as part of APS 2 -No nodular thyroid or clinical signs of hyperthyroid disease -Denies heat intolerance, palpitations, dyspnea, tremors, diarrhea, weight loss, increased appetite, insomnia, weakness, fatigue, menstrual and mood irregularity, ophthalmopathy Plan: 1) Repeat thyroid function studies (TSH and Free T4) Type 1 diabetes mellitus with hyperglycemia 08/2012 Overview (06/13/2021): Last Assessment & Plan: 40 y.o.??with type 1??diabetes mellitus, on insulin, poorly-controlled, complicated by myasthenia gravis, hypertension,??overweight,??subclinical hyperthyroid ?? HgbA1C =??10.9% (09/27/2020) No episodes of hypoglycemia ?? Plan: No medication changes due to inadequate BG log Lantus??30??U qHS Humalog??5??U ac meals + SSI 1:50 > 150 Provided [employer] Verio glucometer last visit Refill for testing strips sent to pharmacy BG??QID finger sticks and document updates via [employer] Interested in CGM if qualifies for coverage DM (diabetes mellitus) 01/06/2012 Overview (06/13/2021): Overview: - diagnosed 2 years ago per chart review - sugars became uncontrolled (consistently in 400s) after starting prednisone for MG in just August of 2011 - on admission, was taking home lantus 14 units qhs and short-acting AC x 1 year - on low-carb diet - DM RN has seen for pt education Lumbar radiculopathy Resolved Problems Problem Noted Date Diagnosed Date Resolved Date Diabetic polyneuropathy asslamonte ciated with type 2 diabetes mellitus 06/13/2021 11/20/2022 Constipation 11/10/2012 07/11/2021 DKA (diabetic ketoacidoses) 01/05/2012 06/27/2021 Overview (02/24/2022): Overview: - CC of N/V, CP, epigastric pain - DKA likely due to suboptimal insulin therapy at home (was on 14 units lantus qhs with AC short-acting insulin x 1 year) aggravated by prednisone therapy for MG (diagnosed in August) - Admission AG > 37, glucose 494, ketonuria (>80 on U/A), glucosuria (>1000 on U/A) - was admitted to MICU for DKA management, on bicarb gtt, insulin gtt, IVF. Symptoms resolved and pt tolerating PO well on transfer to floor with AG 17 and improving, CO2 11. - had an episode of sinus tach likely 2/2 dehydration from DKA; EKG showed no CHAS or depression; BP has been stable; cardiac enzymes were negative - continue lantus 25 units qhs with regular insulin sliding scale - electrolyte abnormalities: following BMPs and repleting as necessary - given continued elevated glucose on transfer to floor, stat BMP and repeat at 0600 to follow Glc, CO2, AG - continue 1/2 NS with KCl at this time IMO 2021 Update Encounters Date Type Department Care Team Description 04/20/2024 11:00 AM BILLING ADJUDICATOR Office Visit [facility] - Neurology [address] [place] [address] [place] [address] Roxana Logan MD Myasthenia gravis (HCC) (Primary Dx); Diabetic polyneuropathy associated with type 2 diabetes mellitus (HCC) 04/20/2024 Travel 04/02/2024 Orders Only [facility] - Dermatology [address] [place] [address] [place] [phone] Buddy Cortez MD Other allergic contact dermatitis 04/02/2024 Telephone [facility] - General Dermatology [address], [facility] [address] [place] [address] Buddy Cortez MD Appointment 03/30/2024 1:00 PM BILLING ADJUDICATOR Clinical Support [facility] - Dermatology [address] [place] [phone] Visit for suture removal 03/30/2024 Travel from Last 3 Months Family History Medical History Relation Name Comments Hypertension Father Relation Name Status Comments Father Alive Mother Alive Social History Tobacco Use Types Packs/Day Years [...] Sex Assigned at Female 05/10/2022 1:03 PM BILLING ADJUDICATOR Gender Identity Not on file Sexual Orientation Not on file Last Filed Vital Signs Vital Sign Reading Time Taken Comments Blood Pressure 146/87 04/20/2024 11:10 AM BILLING ADJUDICATOR Pulse 87 04/20/2024 11:10 AM BILLING ADJUDICATOR Temperature 36.7 ??C (98 ??F) 11/16/2023 7:49 AM CDT Respiratory Rate 18 11/16/2023 7:49 AM CDT Oxygen Saturation 98% 04/20/2024 11:10 AM BILLING ADJUDICATOR Inhaled Oxygen Concentration - - Weight 88.5 kg (195 lb) 04/20/2024 11:10 AM BILLING ADJUDICATOR Height 162.6 cm (5' 4 ) 11/15/2023 5:57 AM CDT Body Mass Index 33.47 11/15/2023 5:57 AM CDT Plan of Treatment Upcoming Encounters Date Type Department Care Team (Late st Contact Info) Description 07/23/2024 3:00 PM BILLING ADJUDICATOR Office Visit [facility] - Dermatology [address] [place] [phone] Buddy Cortez MD [address] [place] [address] 08/03/2024 1:00 PM CDT Procedure visit [facility] - General Dermatology [address] [place] [phone] 08/05/2024 1:00 PM CDT Procedure visit [facility] - General Dermatology [address], [address] [place] [phone] 08/07/2024 1:00 PM CDT Procedure visit [facility] - General Dermatology [address], [address] [place] [address] 08/20/2024 1:00 PM CDT Office Visit [facility] - Dermatology [address] [place] [address], [place] [phone] Buddy Cortez MD [address] [place] [address] 10/20/2024 2:00 PM CDT Office Visit [facility] - Neurology [address] [place] [address], [place] [phone] Roxana Logan MD [address] [facility] [place] [phone] Health Maintenance Due Date Last Done Comments COLOGUARD (AGES 45-75) - COLON CA SCREENING 1978 COLON MONITORING 1978 COLONOSCOPY - COLON CA SCREENING 1978 CT COLONOGRAPHY - COLON CA SCREENING 1978 Colorectal Cancer Screening 1978 FIT - COLON CA SCREENING 1978 FLEX SIG - COLON CA SCREENING 1978 MAMMOGRAM 1978 PAP SMEAR 1978 HIV SCREENING 1993 HEPATITIS C SCREENING 06/03/1996 DTAP/TDAP/TD VACCINES (1 - Tdap) 1997 HEPATITIS B VACCINE (1 of 3 - 19+ 3-dose series) 1997 PNEUMOCOCCAL VACCINE (1 of 2 - PCV) 1997 DIABETES-STATIN 2018 DIABETES RETINOPATHY SCREENING 06/13/2021 DIABETES-FOOT EXAM WITH MONOFILAMENT 06/13/2021 COVID-19 VACCINE (3 - 2023-25 season) 2024 11/02/2020, 10/05/2020 INFLUENZA VACCINE (#1) 2024 DIABETES-HGB A1C 05/16/2024 11/15/2023, , 10/07/2020, Additional history exists DEPRESSION SCREENING 05/27/2024 DIABETES - URINE PROTEIN SCREENING 05/27/2024 MEDICARE AWV ? CALENDAR YEAR 2024 DIABETES-SERUM CREATININE 11/15/20242023, 11/15/2023, 11/15/2023, Additional history exists ZOSTER VACCINE (1 of 2) 2028 HIB VACCINE Aged Out No longer eligi ble based on patient's age to complete this topic HPV VACCINE Aged Out No longer eligi ble based on patient's age to complete this topic MENINGOCOCCAL (Group B) VACCINE Aged Out No longer eligible based on patient's age to complete this topic MENINGOCOCCAL VACCINE Aged Out No trino ritchie eligible based on patient's age to complete this topic Procedures Procedure Name Priority Date/Time Associated Diagnosis Comments RENAL FUNCTION PANEL AM Draw 11/16/2023 2:57 AM CDT Myasthenia gravis (HCC) HEMOGLOBIN A1C JACQUELINE 11/15/2023 3:06 AM CDT Type 2 diabetes mellitus without complication, unspecified whether residential insulin use (HCC) from Last 3 Months or Most Recently Relevant to Health Maintenance Results * (ABNORMAL) RENAL FUNCTION PANEL (11/16/2023 2:57 AM CDT) BUN 20 7 - 26 mg/dL 11/16/2023 5:16 AM CDT [facility] Creatinine 0.89 0.56 - 0.96 mg/dL 11/16/2023 5:16 AM T [facility] Sodium 135(L) 136 - 145 mmol/L 11/16/2023 5:16 AM [facility] Potassium 4.4 3.5 - 4.5 mmol/L 11/16/2023 5:16 AM [facility] Chloride 107 98 - 107 mmol/L 11/16/2023 5:16 AM [facility] CO2 21(L) 22 - 29 mmol/L 11/16/2023 5:16 AM [facility] Glucose 356(H) 70 - 115 mg/dL 11/16/2023 5:16 AM [facility] Albumin 2.7(L) 3.4 - 5.0 g/dL 11/16/2023 5:16 AM [facility] Calcium 9.3 8.4 - 10.2 mg/dL 11/16/2023 5:16 AM [facility] Phosphorus 3.2 2.9 - 5.1 mg/dL 11/16/2023 5:16 AM [facility] Anion Gap 7 6 - 16 11/16/2023 5:16 AM [facility] BUN/Creatinine Ratio 22 7 - 23 11/16/2023 5:16 AM [facility] Osmolality Calculated 297(H) 275 - 295 mOsm/kg 11/16/2023 5:16 AM [facility] eGFR by CKD-EPI 81(L) >=90 mL/min/1.7 3 m2 11/16/2023 5:16 AM [facility] Blood BLOOD SPECIMEN / Unknown Lab Venipuncture / Unknown 11/16/2023 2:57 AM CDT 11/16/2023 4:31 AM T Liban Lujan DO LAB - CHEMISTRY OR DERABLES [facility] [address] [place] [phone], [facility] [phone] * (ABNORMAL) HEMOGLOBIN A1C (11/15/2023 3:06 AM CDT) Hemoglobin A1c 7.5(H) <=5.6 % 11/15/2023 8:41 AM [facility] Estimated Average Glucose 169 mg/dL 11/15/2023 8:41 AM CDT [facility] Comment: HbA1c Interpretation: Normal : < 5.7% Pre-diabetes: 5.7-6.4% Diabetes: Equal to or greater than 6.5% Test results diagnostic of diabetes should be repeated for confirmation. Treatment target values recommended by ADA and other clinical organizations should be used to evaluate metabolic control in patients. Reference: [place] Diabetes Association, Standards of Care in Diabetes [...] Whiting MD LAB - CHEMISTRY MEKA VASQUEZ [facility] Organization Address City/State/ZIP Co de Phone Number [facility] [address] [place] [address], [facility] [phone] from Last 3 Months or Most Recently Relevant to Health Maintenance Advance Directives * Full Code (Latest Code Status on File) Date Activated Date Inactivated Comments 11/14/2023 11:44 PM 11/16/2023 4:35 PM * Full Code Date Activated Date Inactivated Comments 05/31/2021 4:52 PM 06/01/2021 12:47 AM Care Teams Semiconductor Processor Relationship Specialty Start Date End Date Amelie Freitas MD [address] [place] [address] PCP - General 05/02/22
--- OUTSIDE RECORDS SUMMARY | 2024-06-23 14:52 | XMS_ITS | Referral Summary ---
Author Organization [facility] Address [address] [facility] [place] [address] Care Team Providers Care Razor Sharpener Name Role Phone Amelie Freitas MD Primary Care Provider [phone] Source Comments [facility],non-owned Affiliates and Associated Physician Practices is amultiple site organization consisting of ambulatory clinics and hospital sitesin [place], [place], [place] and [place]. This disclosure is being madepursuant to the Care Everywhere program and may not contain all information available regarding this patient. Last updated 18.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 Clinical Support [facility] - Dermatology [address] [place] [phone] Visit for suture removal from Last 3 Months Allergies No known active allergies Medications * [...] Blood Gluc Sensor (FreeStyle Mindy 3 Sensor) [facility] [place] USE DIRECTED AND CHANGE ONCE EVERY 14 [...] Pump (Omnipod 5 G6 Pods, Gen 5,) [facility] 09/22/2023 Active clobetasol (Temovate) 0.05 % ointmentIndication [...] of bone density. -POF will increase her [facility] risk for osteoporosis. 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 Pulse 87 04/20/2024 11:10 AM 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 Temperature 36.7 ??C (98 ??F) 11/16/2023 7:49 AM CDT Respiratory Rate 18 11/16/2023 7:49 AM CDT Oxygen Saturation 98% 04/20/2024 11:10 AM 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 Inhaled Oxygen Concentration - - Weight 88.5 kg (195 lb) 04/20/2024 11:10 AM 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 [place] [address] 08/03/2024 1:00 PM CDT Procedure visit [facility] - General Dermatology [address] [place] [phone] 08/05/2024 1:00 PM CDT Procedure visit [facility] - General Dermatology [address], [address] [place] [phone] 08/07/2024 1:00 PM CDT Procedure visit [facility] - General Dermatology [address], [address] [place] [phone] 08/20/2024 1:00 PM CDT Office Visit [facility] - Dermatology [address] [place] [address], [place] [phone] Buddy Cortez MD [address] [facility] [place] [address] 10/20/2024 2:00 PM CDT Office Visit [facility] - Neurology [address] [place] [address], [place] [phone] Roxana Logan MD [facility] [place] [phone] Procedures Procedure Name Priority Date/Time Associated Diagnosis Comments RENAL FUNCTION PANEL AM Draw 11/16/2023 2:57 AM CDT Myasthenia gravis (HCC) HEMOGLOBIN A1C JACQUELINE 11/15/2023 3:06 AM CDT Type 2 diabetes mellitus without complication, unspecified whether credit consultant insulin use (HCC) from Last 3 Months or Most Recently Relevant to Health Maintenance Results * (ABNORMAL) RENAL FUNCTION PANEL (11/16/2023 2:57 AM CDT) BUN 20 7 - 26 mg/dL 11/16/2023 5:16 AM CDT [facility] Creatinine 0.89 0.56 - 0.96 mg/dL 11/16/2023 5:16 AM [facility] Sodium 135(L) 136 - 145 mmol/L [...] Lujan DO LAB - CHEMISTRY OR DERABLES [facility] [address] [place] [address], [facility] [phone] * (ABNORMAL) HEMOGLOBIN A1C (11/15/2023 3:06 AM CDT) Hemoglobin A1c 7.5(H) <=5.6 % 11/15/2023 8:41 AM CDT [facility] Estimated Average Glucose 169 mg/dL 11/15/2023 8:41 AM CDT [facility] Comment: HbA1c Interpretation: Normal : < 5.7% Pre-diabetes: 5.7-6.4% Diabetes: Equal to or greater than 6.5% Test results diagnostic of diabetes should be repeated for confirmation. Treatment target values recommended by ADA and other clinical organizations should be used to evaluate metabolic control in patients. Reference: [place] Diabetes Association, Standards of Care in Diabetes [...] Whiting MD LAB - CHEMISTRY MEKA VASQUEZ [facility] Organization Address City/State/ZIP Co de Phone Number [facility] [address] [place] [address], [facility] [phone] from Last 3 Months or Most Recently Relevant to Health Maintenance Advance Directives * Full Code (Latest Code Status on File) Date Activated Date Inactivated Comments 11/14/2023 11:44 PM 11/16/2023 4:35 PM * Full Code Date Activated Date Inactivated Comments 05/31/2021 4:52 PM 06/01/2021 12:47 AM Care Teams Razor Sharpener Relationship Specialty Start Date End Date Amelie Freitas MD [address] [place] [address] PCP - General 05/02/22
== END 2024-06-23 14:16 | disposition home or self-care (01) ==
LOC: ANHLAB 14:20
PROVIDERS: PCP Internal Medicine Gastroenterology; Visit Provider Internal Medicine Nephrology
DX: R30.0 Dysuria (principal)
CPT/HCPCS: 81001

== ENCOUNTER 2024-09-10 16:20 | Outpatient (CLI) | payer MEDICARE, MEDICAID, SELFPAY ==
--- NOTE | ~2024-09-10 | CT_ITS ---
Non-contrast CT scan of the Abdomen Clinical indication: Disorder of adrenal gland Technique: 2.5 mm axial scans were obtained through the abdomen without intravenous or oral contrast . Dose reduction technique was used on this scan by utilizing automated exposure control and iterativ e reconstruction technique. The dose-length product (DLP) was 504.54 mGy-cm. Findings: Images through the lung bases reveal no abnormalities. There is no evidence of renal or ureteral calculi. The kidneys and the ureters are nondilated. The liver, spleen, pancreas, and adrenals appear normal. 1.9 cm peripherally calcific gallstone prese nt near the gallbladder neck, versus possibly gallbladder wall calcification is region. There is no a ortic aneurysm. Visualized bowel loops are unremarkable. No ascites. Impression: No adrenal abnormality seen. Cholelithiasis, as above. Reviewed, dictated and finalized at [facility]. Impression: No adrenal abnormality seen. Cholelithiasis, as above.
--- OUTSIDE RECORDS SUMMARY | 2024-09-10 16:24 | XMS_ITS | Data Portability ---
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 Plan of Treatment Reminders Order Date Submit Date Provider Last Modified By Organization Details Last Modified Time Details Appointments ANY 15 2024 09:00A M Amelie Pinedo MD Not available Not available Not available Lab HbA1c (hemogl obin A1c), blood 2023 In-Office Order, Internal Use Only DO Not Attach Compendium DO Not Attach Compendium, Do Not Delete/merge, [id number] 04/09/2024 13:52:32 JEM (antinu clear antibod ies) screen, serum 2023 ELVIN [facility], [address], [address], [place], [address], 04/10/2024 15:13:00 ESR (erythr ocyte sedimen tation rate), blood 2023 ELVIN [facility], [address], [address], [place], [address], 04/10/2024 15:13:04 rf (rheuma toid factor) , serum 2023 ELVIN [facility], [address], [address], [place], [address], 04/10/2024 15:13:05 C reactiv e protein , QN, serum or plasma 2023 024 ELVIN [facility], [address], [address], [place], [address], 04/10/2024 15:13:07 TSH + free T4, serum 2023 024 GILMAN [facility], [address], [address], [place], [address], 04/10/2024 15:13:01 CMP, serum or plasma 2023 024 GILMAN [facility], [address], [address], [place], [address], 04/10/2024 15:13:02 Referral gastroe nterolo gist referra l 2023 024 meghana Trevino MD, [address] [facility], [address], [place], [address], 05/18/2024 17:25:[address] referra l 2022 023 [email or web address] Elvin Sterling MD, [address], [place], [address], 05/13/2023 16:42:57 Procedures None recorde d. Surgeries None recorde d. Imaging None recorde d. Medication Orders lisinop ril 10 mg tablet 2023 024 [facility] #[id number], [address] [facility], [place], [address], 04/09/2024 13:55:19 lisinop ril 5 mg tablet 2023 024 [facility]armacy #[id number], [address], [place], [address], 02/10/2024 13:15:00 triamci nolone acetoni de 0.5 % topical cream 2023 024 [facility]/Pharmacy #[id number], [address], [place], [address], 11/14/2023 13:14:49 Depo-Me drol 40 mg/mL suspens ion for injecti on 2023 [email or web address] Not available 11/19/2023 08:27:24 Patient TargetsNo targets recorded. Patient Instructions Encounter Date Encounter Id Patient Instructions Last Modified By Organization Details Last Modified Time 05/08/2023 [id number] myasthenia gravis: care instructions [email or web address] Not available 05/08/2023 10:54:35 A healthy lifestyle: care instructions [email or web address] Not available 05/08/2023 10:54:35 When You Want to Lose Weight: Care Instructions Not available 05/08/2023 10:54:35 learning about type 2 diabetes [email or web address] Not available 05/08/2023 10:54:34 type 2 diabetes: care instructions [email or web address] Not available 05/08/2023 10:54:35 11/14/2023 [id number] A healthy lifestyle: care instructions [email or web address] Not available 11/14/2023 13:14:45 dermatitis: care instructions Not available 11/14/2023 13:14:45 02/10/2024 [id number] learning about swallowing problems [email or web address] Not available 02/10/2024 13:14:57 abnormal weight gain: care instructions [email or web address] Not available 02/10/2024 13:14:58 04/09/2024 [id number] learning about type 2 diabetes [email or web address] Not available 04/09/2024 13:52:32 type 2 diabetes: care instructions Not available 04/09/2024 13:52:32 rash: care instructions [email or web address] Not available 04/09/2024 13:52:32 abnormal weight gain: care instructions [email or web address] Not available 04/09/2024 13:52:32 deep vein thrombosis: care instructions Not available 04/09/2024 13:52:32 learning about deep vein thrombosis [email or web address] Not available 04/09/2024 13:52:32 07/06/2024 [id number] When You Want to Lose Weight: Care Instructions Not available 07/06/2024 15:19:14 myasthenia gravis: care instructions Not available 07/06/2024 15:19:14 learning about type 2 diabetes [email or web address] Not available 07/06/2024 15:19:14 type 2 diabetes: care instructions [email or web address] Not available 07/06/2024 15:19:14 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 Dysphagia Referring Physician: Amelie Pinedo, Internal Medicine, Encounter Date: 02/10/2024 Results Created Date Observation Date Name Description Value Unit Range Abnormal Flag Note LastModifiedBy Organization Detail LastModifiedTime 04/09/2004/10/2024 JEM W/REF LARISA IF POSIT ROSA MARIA JEM direct NEGATI VE negati ve Not Available [facility] ([facility]) [address] [place], [address], 04/10/2024 15:13:00 04/09/2004/10/2024 TSH+F REE T4 TSH 0.473 uIU/m L 0.450- 4.500 Not Available [facility] ([facility]) [address] [place], [address], 04/10/2024 15:13:01 04/09/2004/10/2024 TSH+F REE T4 T4,free(dire ct) 1.33 NG/dL 0.82-1 .77 Not Available [facility] ([facility]) [address] [place], [address], 04/10/2024 15:13:01 04/09/2004/10/2024 COMP. METAB OLIC PANEL (14) glucose 208 mg/dL 70-99 above high normal Not Available [facility] ([facility]) [address] [place], [address], 04/10/2024 15:13:02 04/09/20 24 04/10/2024 COMP. METAB OLIC PANEL (14) BUN 15 mg/dL 6-24 Not Available [facility] ([facility]) [address] [place], [address], 04/10/2024 15:13:02 04/09/20 24 04/10/2024 COMP. METAB OLIC PANEL (14) creatinine 0.95 mg/dL 0.57-1 .00 Not Available [facility] ([facility]) [address] [place], [address], 04/10/2024 15:13:02 04/09/20 24 04/10/2024 COMP. METAB OLIC PANEL (14) eGFR 75 mL/mi n/1.7 3 >59 Not Available [facility] ([facility]) [address] [place], [address], 04/10/2024 15:13:02 04/09/20 24 04/10/2024 COMP. METAB OLIC PANEL (14) BUN/creatini ne ratio 16 9-23 Not Available [facility] ([facility]) [address] [place], [address], 04/10/2024 15:13:02 04/09/20 24 04/10/2024 COMP. METAB OLIC PANEL (14) sodium 139 mmol/ L 134-14 4 Not Available [facility] ([facility]) [address] [place], [address], 04/10/2024 15:13:02 04/09/20 24 04/10/2024 COMP. METAB OLIC PANEL (14) potassium 4.1 mmol/ L 3.5-5. 2 Not Available [facility] ([facility]) [address] [place], [address], 04/10/2024 15:13:02 04/09/20 24 04/10/2024 COMP. METAB OLIC PANEL (14) chloride 103 mmol/ L 96-106 Not Available [facility] ([facility]) [address] [place], [address], 04/10/2024 15:13:02 04/09/20 24 04/10/2024 COMP. METAB OLIC PANEL (14) carbon dioxide, total 22 mmol/ L 20-29 Not Available [facility] ([facility]) [address] [place], [address], 04/10/2024 15:13:02 04/09/20 24 04/10/2024 COMP. METAB OLIC PANEL (14) calcium 9.3 mg/dL 8.7-10 .2 Not Available [facility] ([facility]) [address], [place], [address], 04/10/2024 15:13:02 04/09/20 24 04/10/2024 COMP. METAB OLIC PANEL (14) protein, total 6.9 g/dL 6.0-8. 5 Not Available [facility] ([facility]) [address] [place], [address], 04/10/2024 15:13:02 04/09/20 24 04/10/2024 COMP. METAB OLIC PANEL (14) albumin 3.6 g/dL 3.9-4. 9 below low normal Not Available [facility] ([facility]) [address] [place], [address], 04/10/2024 15:13:02 04/09/20 24 04/10/2024 COMP. METAB OLIC PANEL (14) globulin, total 3.3 g/dL 1.5-4. 5 Not Available [facility] ([facility]) [address] [place], [address], 04/10/2024 15:13:02 04/09/20 24 04/10/2024 COMP. METAB OLIC PANEL (14) bilirubin, total 0.4 mg/dL 0.0-1. 2 Not Available [facility] ([facility]) [address] [place], [address], 04/10/2024 15:13:02 04/09/20 24 04/10/2024 COMP. METAB OLIC PANEL (14) alkaline phosphatase 152 IU/L 44-121 above high normal Not Available [facility] ([facility]) [address] [place], [address], 04/10/2024 15:13:02 04/09/20 24 04/10/2024 COMP. METAB OLIC PANEL (14) AST (SGOT) 20 IU/L 0-40 Not Available [facility] ([facility]) [address] [place], [address], 04/10/2024 15:13:02 04/09/20 24 04/10/2024 COMP. METAB OLIC PANEL (14) ALT (SGPT) 17 IU/L 0-32 Not Available [facility] ([facility]) [address] [place], [address], 04/10/2024 15:13:02 04/09/20 24 04/10/2024 SEDIM ENTAT ION RATE- WESTE RGREN sedimentatio n rate-westerg michael 77 mm/HR 0-32 above high normal Not Available [facility] ([facility]) [address] [place], [address], 04/10/2024 15:13:04 04/09/2004/10/2024 RHEUM ATOID FACTO R (RF) rheumatoid factor (rf) 10.8 IU/mL <14.0 Not Available [facility] ([facility]) [address] [place], [address], 04/10/2024 15:13:05 04/09/20 24 04/10/2024 C-MARIKA CTIVE PROTE IN, QUANT C-reactive protein, quant 5 mg/L 0-10 Not Available [facility] ([facility]) [address], [place], [address], 04/10/2024 15:13:06 04/09/20 24 04/09/2024 HbA1c (hemo globi n A1c), blood HbA1c 8.3 Not Available In-Office Order Internal Use Only DO Not Attach Compendium DO Not Attach Compendium, Do Not Delete/merge, [id number] 04/09/2024 13:19:07 01/06/20 24 XR, knee No observ ation record ed. [address] [place], [address], 01/11/2024 04:42:46 Result Notes None recorded. Problems Name Problem SNOMED Code Status Onset Date Resolution Date Notes Provider Name and Address Organization Details Recorded Time Myastheni a gravis 75088445 Active 2021 diagnosed in 2011 ; sees neurology at [facility]. Dr. Car Not Available [facility] 3 22:18:56 Type 2 diabetes mellitus 42442124 Active 2021 [facility] Prolapsed lumbar intervert ebral disc 698329611 Active 2021 Not Available [facility] 3 22:18:56 Obese 023262386 Active 2021 Not Available [facility] 3 22:18:56 Vitamin D deficienc y 44926308 Active 2021 Not Available [facility] 3 22:18:56 Polyuria 05220459 Active 2021 Not Available [facility] 3 22:18:56 Acute urinary tract infection 118194871 Active 2021 Not Available [facility] 3 22:18:56 Vulvovagi nitis 06382402 Active 2021 Not Available [facility] 3 22:18:56 Deep venous thrombosi s 890950222 Active 2021 Not Available [facility] 3 22:18:56 Body mass index 30+ - obesity 972042476 Active 2021 Not Available [facility] 3 22:18:56 Cough 73659827 Active 2021 Not Available [facility] 3 22:18:56 Allergic rhinitis 71201890 Active 2022 Not Available [facility] 3 22:18:56 History of ear disorder 310688191 Active 2022 Amelie Pinedo MD Attn: Accounting ,[address] [facility], [place], [address] , [place] - [facility] 3 10:49:53 Impacted cerumen in right ear 26856351721 50865 Active 2022 Amelie Pinedo MD Attn: Accounting ,[address] [facility], [place], [address] , [place] [facility] 3 10:52:48 Elevated blood-pre ssure reading without diagnosis of hypertens ion 401621584 Active 2022 Amelie Pinedo MD Attn: Accounting ,[address] [facility], [place], [address] , [place] [facility] 3 10:55:46 Effusion of joint of left knee 25300091022 9105 Active 2023 Amelie Pinedo MD Attn: Accounting ,[address] [facility], [place], [address] , [place] [facility] 4 17:59:03 Abnormal weight gain 437011223 Active 2023 Amelie Pinedo MD Attn: Accounting ,[address] [facility], [place], [address] , [place] [facility] 4 13:03:59 Dysphagia 03164211 Active 2023 Amelie Pinedo MD Attn: Accounting ,[address] [facility], [place], [address] , [place] [facility] 4 13:12:29 History of deep vein thrombosi s 913237379 Active 2023 Amelie Pinedo MD Attn: Accounting ,[address] [facility], [place], [address] , [place] - [facility] 13:45:07 Periphera l venous insuffici ency 09198389 Active 2023 Amelie Pinedo MD Attn: Accounting ,[address] [facility], [place], [address] , [facility] - [facility] 13:45:28 Eruption 952153507 Active 2023 Amelie Pinedo MD Attn: Accounting ,[address] [facility], [place], [address] , [place] - [facility] 13:46:22 Problem Notes None recorded. Procedures Surgical History None recorded. Imaging Results Imaging Date Name Status LastModified by Organiz ation Details LastModified Time 01/06/2024 XR, knee completed [email or web address] [facility] [address] [place], [address], 01/11/2024 04:42:46 Procedure Notes None recorded. Medical Equipment None Reported. Allergies No known drug allergies Medications Name Sig Start Date Stop Date Status Note LastModified by Organization Details LastModified Time cyclobenz aprine 10 mg tablet Take 1 tablet as needed by oral route at bedtime. 11/06 completed Not Available Not Available Not Available gabapenti n 600 mg tablet 11/28 completed Not Available Not Available Not Available atorvasta tin 20 mg tablet TAKE 1 TABLET BY MOUTH EVERY DAY active Not Available Not Available No t Available Depo-Medr ol 40 mg/mL suspensio n for injection Take 1 mL every day by injectio n route. 2023 active Not Available Not Available Not Avai lable triamcino lone acetonide 0.5 % topical cream APPLY A THIN LAYER TO THE AFFECTED AREA(S) BY TOPICAL ROUTE 2 TIMES PER DAY 2023 active Not Available Not Available Not Avai lable cetirizin e 10 mg tablet Take 1 tablet every day by oral route. 11/13 completed Not Available Not Available Not Available ibuprofen 800 mg tablet TAKE 1 TABLET BY MOUTH EVERY 6 TO 8 HOURS NEEDED active Not Available Not Available No t Available Lidocaine Viscous 2 % mucosal solution TAKE 5 ML BY MUCOUS MEMBRANE ROUTE FOUR TIMES DAILY DIRECTED FOR 7 DAYS active Not Available Not Available No t Available fluconazo le 150 mg tablet Take 1 tablet every 72 hours by oral route for 9 days. 11/06 completed Not Available Not Available Not Available fluconazo le 200 mg tablet TAKE 1 PILL IF SYMPTOMS DO NOT RESOLVE IN 72 HOURS TAKE THE SECOND PILL 04/09 completed Not Available Not Available Not Available meloxicam 15 mg tablet TAKE 1 TABLET BY MOUTH EVERY DAY active Not Available Not Available No t Available metronida zole 0.75 % (37.5 mg/5 gram) vaginal gel INSERT 1 APPLICAT OR FULL PER VAGINA AT BEDTIME FOR 5 DAYS 11/06 completed Not Available Not Available Not Available terconazo le 0.8 % vaginal cream 11/06 completed Not Available Not Available Not Available Lantus U-100 Insulin 100 unit/mL subcutane ous solution 11/28 completed Not Available Not Available Not Available triamcino lone acetonide 0.5 % topical ointment APPLY TO AFFECTED AREAS TWICE A DAY FOR ITCHING. active Pt states this medicati on is not working for the rash 11-14-19 DH Not Available Not Available Not Available metronida zole 500 mg tablet TAKE 1 TABLET BY MOUTH TWICE A DAY X7 DAYS 11/06 completed Not Available Not Available Not Available azathiopr ine 50 mg tablet TAKE 1 TABLET BY MOUTH EVERY DAY IN THE MORNING active Not Available Not Available No t Available ciproflox acin 500 mg tablet Take 1 tablet every 12 hours by oral route for 10 days. 12/14 completed DC has myasthen ia gravis ; switched to metronid azole Not Available Not Available Not Available doxycycli ne monohydra te 100 mg tablet TAKE 1 TABLET BY MOUTH TWICE A DAY 11/06 completed Not Available Not Available Not Available tramadol 50 mg tablet TAKE 1 TABLET BY MOUTH twice daily NEEDED 11/06 completed Not Available Not Available Not Available tamsulosi n 0.4 mg capsule TAKE 1 CAPSULE BY MOUTH EVERY DAY 11/13 completed Not Available Not Available Not Available Humalog U-100 Insulin 100 unit/mL subcutane ous solution INJECT WITH INSULIN PUMP PER SLIDING SCALE. MAX 50 UNITS/24 HRS active Not Available Not Available No t Available pyridosti gmine bromide 60 mg tablet TAKE 1 TABLET BY MOUTH THREE TIMES A DAY 11/13 completed Not Available Not Available Not Available lisinopri l 10 mg tablet TAKE 1 TABLET BY MOUTH EVERY DAY 2024 active Not Available Not Available Not Avai lable lisinopri l 5 mg tablet TAKE 1 TABLET BY MOUTH EVERY DAY DIRECTED active Not Available Not Available No t Available ergocalci ferol (vitamin D2) 1,250 mcg (50,000 unit) capsule TAKE 1 CAPSULE BY MOUTH ONE TIME PER WEEK active Not Available Not Available No t Available clobetaso l 0.05 % topical ointment APPLY TO RASH TWICE DAILY. TWO WEEKS ON FOLLOWED BY ONE WEEK OFF. 30 DAYS SUPPLY. active Not Available Not Available No t Available Novolog U-100 Insulin aspart 100 unit/mL subcutane ous solution INJECT 200 UNITS UNDER THE SKIN EVERY OTHER DAY IN THE MORNING 07/06 completed Not Available Not Available Not Available epinephri ne 0.3 mg/0.3 mL injection , auto-inje ctor active Not Available Not Available Not Available levofloxa adilene 750 mg tablet TAKE 1 TABLET BY MOUTH EVERY DAY 11/13 completed Not Available Not Available Not Available betametha sone dipropion ate 0.05 % topical ointment active Not Available Not Available Not Available fluticaso ne propionat e 50 mcg/actua tion nasal spray,ramírez pension INSTILL 2 SPRAYS INTO EACH NOSTRIL ONCE DAILY active Not Available Not Available No t Available naproxen 500 mg tablet TAKE 1 TABLET BY MOUTH TWICE A DAY 11/13 completed Not Available Not Available Not Available amoxicill in 875 mg-potass ium clavulana te 125 mg tablet TAKE 1 TABLET BY MOUTH TWICE A DAY FOR 7 DAYS 07/06 completed Not Available Not Available Not Available amoxicill in 500 mg-potass ium clavulana te 125 mg tablet TAKE 1 TABLET BY MOUTH TWICE A DAY X7 DAYS 11/06 completed Not Available Not Available Not Available neomycin- polymyxin -hydrocor t 3.5 mg-10,000 unit/mL-1 % ear drops,ramírez p INSTILL 2 DROPS INTO THE LEFT EAR 4 TIMES DAILY 11/13 completed Not Available Not Available Not Available Novolog FlexPen U-100 Insulin aspart 100 unit/mL (3 mL) subcutane ous INJECT 200 UNITS EVERY 3 DAYS VIA INSULIN PUMP 07/06 completed Not Available Not Available Not Available 06/15 (28) 1 mg-20 mcg (21)/75 mg (7) tablet 10/25 completed Not Available Not Available Not Available nitrofura ntoin monohydra te/macroc rystals 100 mg capsule TAKE 1 CAPSULE BY MOUTH TWICE A DAY 04/09 completed Not Available Not Available Not Available duloxetin e 30 mg capsule,d elayed release TAKE 1 CAPSULE BY MOUTH DAILY FOR 7 DAYS THEN 1 CAPSULE TWICE A DAY FOR 53 DAYS active Not Available Not Available No t Available duloxetin e 60 mg capsule,d elayed release TAKE 1 CAPSULE BY MOUTH EVERY DAY active Not Available Not Available No t Available pregabali n 75 mg capsule Take 2 capsules twice a day by oral route. 11/06 completed Not Available Not Available Not Available Lyrica 10/25 completed Not Available Not Available Not Available Lantus Solostar U-100 Insulin 100 unit/mL (3 mL) subcutane ous pen INJECT 30 UNITS UNDER THE SKIN ONCE EVERY NIGHT active Not Available Not Available No t Available Vitamin D3 50 mcg (2,000 unit) capsule TAKE 1 CAPSULE BY MOUTH EVERY DAY WITH MEALS FOR 30 DAYS 11/06 completed Not Available Not Available Not Available Gammaked 20 gram/200 mL (10 %) injection solution active Not Available Not Available Not Available Janumet XR 50 mg-500 mg tablet,ex tended release TAKE 1 TABLET BY MOUTH EVERY DAY IN THE MORNING 04/12 completed Not Available Not Available Not Available Ultra Thin Lancets 30 gauge USE TO TEST 3 TIMES DAILY 11/28 completed Not Available Not Available Not Available Eliquis 5 mg tablet TAKE 2 TABLETS BY MOUTH TWICE A DAY FOR 1 WEEK, THEN 1 TABLET TWICE DAILY 11/06 completed Not Available Not Available Not Available BD Insulin Syringe Ultra-Fin e 1 mL 31 gauge x 10/09 USE TO INJECT ONCE DAILY active Not Available Not Available No t Available Pennsaid 20 mg/gram/a ctuation (2 %) topical soln in metered-d ose pump APPLY 2 PUMPS (40 MG) TO THE AFFECTED KNEE(S) BY TOPICAL ROUTE 2 TIMES PER DAY 11/06 completed Not Available Not Available Not Available Gvoke PFS 2-Pack 1 mg/0.2 mL subcutane ous syringe PLEASE SEE ATTACHED FOR DETAILED DIRECTIO NS active Not Available Not Available No t Available Gvoke HypoPen 2-Pack 1 mg/0.2 mL subcutane ous auto-inje ctor INJECT 1 MG NEEDED BY SUBCUTAN EOUS ROUTE NEEDED FOR 1 DAY. active Not Available Not Available No t Available Ozempic 1 mg/dose (4 mg/3 mL) subcutane ous pen injector active Not Available Not Available Not Available Kerendia 10 mg tablet TAKE 1 TABLET BY MOUTH EVERY DAY DIRECTED active Not Available Not Available No t Available Omnipod 5 G6 Pods (Gen 5) subcutane ous cartridge active Not Available Not Available No t Available FreeStyle Mindy 3 Sensor device USE DIRECTED AND CHANGE ONCE EVERY 14 DAYS 11/06 completed Not Available Not Available Not Available Ozempic 0.25 mg or 0.5 mg (2 mg/3 mL) subcutane ous pen injector INJECT 0.5MG UNDER THE SKIN ONCE WEEKLY active Not Available Not Available No t Available Vitals Date Recorded Body height Body mass index (BMI) Body weight Body temperature Oxygen saturation Oxygen saturation in Arterial blood by Pulse oximetry Heart rate Systolic blood pressure Diastolic blood pressure Provider Name and Address Organization Details Last Updated DateTime 3 162.56 cm 30 kg/m2 13054.6 6 g 98 [degF] 99 % 99 % 88 /min 150 mm[Hg] 90 mm[Hg] Analy Kemp [place] [facility] 3 10:28:19 Date Recorded Body height Body mass index (BMI) Body weight Oxygen saturation Oxygen saturation in Arterial blood by Pulse oximetry Heart rate Systolic blood pressure Diastolic blood pressure Provider Name and Address Organization Details Last Updated DateTime 4 162.56 cm 31.8 kg/m2 13346.3 8 g 97 % 97 % 81 /min 146 mm[Hg] 90 mm[Hg] Elzbieta Graff [place] [facility] 4 13:00:43 Date Recorded Body height Body mass index (BMI) Body weight Oxygen saturation Oxygen saturation in Arterial blood by Pulse oximetry Heart rate Systolic blood pressure Diastolic blood pressure Provider Name and Address Organization Details Last Updated DateTime 4 162.56 cm 33.8 kg/m2 60127.7 g 98 % 98 % 92 /min 160 mm[Hg] 94 mm[Hg] Analy Kemp MA [facility] 4 12:12:14 Date Recorded Body height Body mass index (BMI) Body weight Heart rate Oxygen saturation Oxygen saturation in Arterial blood by Pulse oximetry Systolic blood pressure Diastolic blood pressure Provider Name and Address Organization Details Last Updated DateTime 4 162.56 cm 34.2 kg/m2 47566.8 8 g 95 /min 98 % 98 % 173 mm[Hg] 109 mm[Hg] Aníbal Gross MA [facility] 4 13:06:11 Date Recorded Systolic blood pressure Diastolic blood pressure Systolic blood pressure Diastolic blood pressure Provider Name and Address Organization Details Last Updated DateTime 04/09/2024 169 mm[Hg] 106 mm[Hg] 164 mm[Hg] 100 mm[Hg] Brandy Pinedo MD Attn: Accounting ,[address] [place], [address] , [facility] 4 13:31:05 Date Recorded Body height Body mass index (BMI) Body weight Heart rate Oxygen saturation Oxygen saturation in Arterial blood by Pulse oximetry Systolic blood pressure Diastolic blood pressure Provider Name and Address Organization Details Last Updated DateTime 5 162.56 cm 34.5 kg/m2 67085.0 7 g 91 /min 99 % 99 % 134 mm[Hg] 94 mm[Hg] Aníbal Gross MA [facility] 5 14:53:44 Social History Question Answer Notes LastModified by Organizat ion Details LastModified Time Tobacco Smoking Status Never Smoker CODY Schultz, [facility] 10/25/2021 11:12:01 What Is Your Level Of Alcohol Consumption? Occasional Information not available 10/25/2021 Are You Blind Or Do You Have Difficulty Seeing? Yes Information not available 10/25/2021 What Is Your Level Of Caffeine Consumption? None Information not available 10/25/2021 Are You Currently Employed? No Information not available 10/25/2021 Are You Deaf Or Do You Have Serious Difficulty Hearing? No Information not available 10/25/2021 What Type Of Diet Are You Following? REGULAR Information not available 10/25/2021 Are There Any Guns Present In Your Home? Yes Information not available 10/25/2021 What Was The Date Of Your Most Recent Tobacco Screening? 07/06/2024 [email or web address] Information not available 07/06/2024 How Many Children Do You Have? -1 Information not available 10/25/2021 What Is Your Relationship Status? Single Information not available 10/25/2021 Do You Use Your Seat Belt Or Car Seat Routinely? Yes Information not available 10/25/2021 Are You Sexually Active? No Information not available 10/25/2021 Do You Have Smoke And Carbon Monoxide Detectors In Your Home? Yes Information not available 10/25/2021 Are You Passively Exposed To Smoke? No Information no t available 10/25/2021 Do You Feel Stressed (tense, Restless, Nervous, Or Anxious, Or Unable To Sleep At Night)? [id number] Information not available 10/25/2021 Has Tobacco Cessation Counseling Been Provided? No [email or web address] Information not available 11/06/2022 Do You Or Have You Ever Used Any Other Forms Of Tobacco Or Nicotine? No Information not available 10/25/2021 Sex: Female Functional Status Question Answer Note LastModified by Organizat ion Details LastModified Time Are you able to care for yourself? Yes Information not available 10/25/2021 What is your exercise level? Occasional Information not available 10/25/2021 Mental Status None recorded. Family History Nothing Reported. Medical History No medical history recorded. Gynecological History Statement/Question Response Date of LMP 11/04/2023 Obstetrics History GPAL:G 0 P 0 0 0 0 Immunizations Vaccine Type Date Status Note Provider Nam e and Address Organization Details Recorded Time COVID-19, mRNA, LNP-S, PF, 100 mcg/0.5mL dose or 50 mcg/0.25mL dose 10/05/2020 completed Not Available [facility] 3 22:18:56 COVID-19, mRNA, LNP-S, PF, 100 mcg/0.5mL dose or 50 mcg/0.25mL dose 11/02/2020 completed Not Available [facility] 3 22:18:56 Past Encounters Encounter ID Performer Location Encounter Start Date Encounter Closed Date Diagnosis/Indication Diagnosis SNOMED-CT Code Diagnosis ICD10 Code Diagnosis Note [id number] MONICA Cintron (Adult Med) [address] [place] [address] [id number] 10/25/2021 10:49:30 10/26/2021 13:00:18 Myasthenia gravis 23783372 G70.00 Type 2 romy betes mellitus 86457133 E11.9 Prolapsed lumbar intervertebral disc 007352747 M51.26 Obese 149063460 E66.9 [id number] MONICA Cintron (Adult Med) [address] [place] [address] [id number] 11/28/2021 10:49:14 11/29/2021 15:53:28 Prolapsed lumbar intervertebral disc 377991312 M51.26 Type 2 romy betes mellitus 79874715 E11.9 Vitamin D deficiency 347 81793 E55.9 Myasthenia gravis 253287 04 G70.00 Obese 505307601 E66.9 Polyuria 18268640 R35.81 [id number] MONICA Cintron (Adult Med) [address] [place] [address] [id number] 12/28/2021 09:38:43 01/01/2022 11:04:48 Type 2 diabetes mellitus 00086553 E11.9 Prolapsed lumbar intervertebral disc 551034691 M51.26 Vulvovaginitis 91576413 N76.0 Vitamin D deficiency 347 46625 E55.9 Myasthenia gravis 086902 04 G70.00 Deep venou s thrombosis 375525910 I82.288 [id number] MD Srikanth Mejias (Adult Med) [address] [place] [address] [id number] 04/12/2022 15:14:12 04/13/2022 13:04:46 Diabetes mellitus 69062980 E11.9 Pt to confirm Lantus dosing with endocrinol ogist Obese 116083903 E66.9 Deep venou s thrombosis 824236383 I82.409 Cont Eliquis Myasthenia gravis 137447 04 G70.00 F/U with neurology Vitamin D deficiency 347 37148 E55.9 Body mass index 30+ - obesity 324622263 Z68.30 Cough 57024015 R05.9 [id number] MD Srikanth Mejias (Adult Med) [address] [place] [address] [id number] 11/06/2022 10:36:47 11/09/2022 11:27:16 Obesity 457775118 E66.9 Myasthenia gravis 358453 04 G70.00 F/U with neurology Type 2 romy betes mellitus 66787300 E11.9 Vitamin D deficiency 347 23250 E55.9 Allergic rhinitis 595942 04 J30.9 [id number] MD Srikanth Mejias (Adult Med) [address] [place] [address] [id number] 05/08/2023 09:54:42 05/13/2023 16:42:57 Obese 023370819 E66.9 Obesity 604796181 E66.9 Type 2 romy betes mellitus 50432859 E11.9 Will see new endocrinol ogist in May 2023 Myasthenia gravis 983769 04 G70.00 F/U with neurology History of ear disorder 923899849 Z86.69 Impacted c erumen in right ear 4770916415 705103 H61.21 Elevated blood-pressure reading without diagnosis of hypertension 776955922 R03.0 Off lisinopril for renal protection in past six months. F/U in 3 months [id number] MONICA FRANCES (Adult Med) [address] [place] [address] [id number] 11/14/2023 12:36:56 11/15/2023 14:25:14 Contact dermatitis 16383112 L25.9 40mg depo medrol todaystart triamcinol one acetonide 0.5% topical cream twice dailyMake appointmen t with PCP Obesity 603908334 E66.8 BMI 31.8 [id number] MD Srikanth Mejias (Adult Med) [address] [place] [address] [id number] 02/10/2024 12:00:43 02/12/2024 11:01:30 Abnormal weight gain 307008577 R63.5 F/U endocrinol ogy Elevated blood-pressure reading without diagnosis of hypertension 417789616 R03.0 Off lisinopril for renal protection in past six months. Restart lisinopril daily Dysphagia 54103830 R13.1 0 [id number] CODY Rose (Adult Med) [address] [place] [address] [id number] 04/09/2024 12:41:15 04/10/2024 15:36:17 Type 2 diabetes mellitus 41992333 E11.9 Will see new endocrinol ogist in May 2023 Deep venou s thrombosis 904392230 I82.409 Cont Eliquis Eruption 440805738 R21 Abnormal weight gain 161 586836 R63.5 F/U endocrinol ogy Elevated blood-pressure reading without diagnosis of hypertension 364428924 R03.0 Off lisinopril for renal protection in past six months. Increase lisinopril to 10 mg/d [id number] MD Srikanth Mejias (Adult Med) [address] [place] [address] [id number] 07/06/2024 14:07:49 07/08/2024 09:04:43 Myasthenia gravis 45236617 G70.00 F/U with neurology Type 2 romy betes mellitus 31436179 E11.9 F/U endocrinol ogist Obese 508379318 E66.9 Vitamin D deficiency 347 15941 E55.9 Health Concerns Section Related Observation LastModified by Organization Detai ls LastModified Time None Recorded Concern Status LastModified by Organization Details LastModified Time None Recorded Advance Directives Directive None Recorded Payers Encounter Date Sequence Insurance Name Policy Number Policy Dumont Covered Member ID Dumont Member ID Guarantor Name 05/08/2023 1 [place] Milagro Duarte [id number] Milagro Duarte 05/08/2023 2 [place] WHEN [place] OR MEDICARE REPLACEMENT PRIMARY) Milagro Goddardey [id number] Milagro Yokley 11/14/2023 1 [place] Milagro Duarte [id number] Milagro Yokley 11/14/2023 2 [place] OR [place] REPLACEMENT PR[place]) Milagro Nixkley [id number] Milagro Yokley 02/10/2024 2 [place] OR MEDICARE REPLACEMENT PRIMARY) Milagro Yokley [id number] Milagro Yokley 02/10/2024 1 [facility] (MEDICARE REPLACEMENT/AD VANTAGE - PPO) [id number] Milagro Stephen Yokley [id number] Milagro Yokley 04/09/2024 2 [place] OR MEDICARE REPLACEMENT PRIMARY) Milagro Goddardey [id number] Milagro Yokley 04/09/2024 1 [facility] (MEDICARE REPLACEMENT/AD VANTAGE - PPO) [id number] Milagro Stephen Yokley [id number] Milagro Yokley 07/06/2024 2 [place] OR MEDICARE REPLACEMENT PRIMARY) Milagro Goddardey [id number] Milagro Yokley 07/06/2024 1 [facility] (MEDICARE REPLACEMENT/AD VANTAGE - PPO) [id number] Milagro Stephen Yokley [id number] Milagro Duarte Notes Date Note Type Note Provider Name and Address Organization Details Recorded Time 05/08/2023 text/html Here for six mon th check. Complains of recent ear and sinus infections for the past six months. 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 Cholelithiasis noted on US Amelie Pinedo MD Attn: Accounting,[address] [facility], [place], [address], [place] [facility] 05/08/2023 10:57:14 11/14/2023 text/html 43 y/o AA F here c/o rash on R upper arm x 2 weeks. Pt states went to Urgent care and was given injection and some type of cream was put on there but unsure what. Was diagnosed with hives at ER but has not gone away. Pt denies SOB, CP, L[place]IS, N/V/D. ARSLAN KATRIN, PA-C Attn: Accounting[address] [facility], [place], [address], [facility] 11/14/2023 13:15:05 02/10/2024 text/html Concerned about weight gain and fatigued in the past three months. Had an US of the thyroid which showed nodules. She has noticed trouble swallowing solids in the past three months Unsure if thyroid labs have been completed. Amelie Pinedo MD Attn: Accounting,[address] [facility], [place], [address], [facility] 02/10/2024 13:15:03 04/09/2024 text/html Here for BP f/u. She has been feeling ill for the past week. Was seen in urgent care one week ago and reportedly had a normal blood pressure then. She was treated with antibiotics. She has had swelling of her left knee which occurs at approximately the same time as the rash. She does see endocrinology. She has not seen rheumatology CODY Rose, ID - [facility] 04/09/2024 17:42:33 07/06/2024 text/html Here for routine f/u. Has recently seen neurologist and is scheduled to see acid recovery operator on 07/07/2024. She has occasional transient( 1 min) muscle spasms recently Amelie Pinedo MD Attn: Accounting,[address] [facility], [place], [address], [facility] 07/06/2024 15:21:00 OBGyn Episode No OBEpisode recorded.
--- OUTSIDE RECORDS SUMMARY | 2024-09-10 16:24 | XMS_ITS | Clinical Summary ---
Author Organization [facility] Address [address] [place] [address] Care Team Providers Care Sourcing Consultant Name Role Phone Amelie Freitas MD Primary Care Provider [phone] Source Comments [facility],non-owned Affiliates and Associated Physician Practices is amultiple site organization consisting of ambulatory clinics and hospital sitesin [place], [place], [place] and [place]. This disclosure is being madepursuant to the Care Everywhere program and may not contain all information available regarding this patient. Last updated 18.[facility] Allergies No known active allergies Medications * This document contains information received from the source organization and may not represent a complete record from that organization. * Be aware that medications may not be up to date on this document. Alwaysverify current medications with the patient. insulin lispro (HUMALOG) 100 UNIT/ML vial Inject 8 (eight) Units subcutaneously 01/07/20 12 Active insulin glargine (LANTUS) vial Inject 25 (twenty five) Units subcutaneously 01/07/20 12 Active lisinopril (PRINIVIL;ZESTRI L) 5 MG tablet Take 1 (one) tablet by mouth once daily Active Continuous Blood Gluc Sensor (FreeStyle Mindy 3 Sensor) MISC 05/12/20 22 Active pyRIDostigmine (Mestinon) 60 MG tabletIndication s:Myasthenia gravis (HCC) TAKE 1 TABLET BY MOUTH THREE TIMES A DAY 270 tablet 1 08/14/19 23 Active Kerendia 10 MG tablet Take 1 (one) tablet by mouth every morning 06/29/19 23 Active NovoLOG FLEXPEN pen 08/09/19 23 Active DULoxetine (Cymbalta) 60 MG capsule Take 1 (one) capsule by mouth once daily 90 capsule 4 07/16/19 24 Active Insulin Disposable Pump (Omnipod 5 G6 Pods, Gen 5,) MISC 09/22/19 24 Active clobetasol (Temovate) 0.05 % ointmentIndicati ons:Other specified dermatitis APPLY TO RASH TWICE DAILY. TWO WEEKS ON FOLLOWED BY ONE WEEK OFF. 30 DAYS SUPPLY. 60 g 2 02/18/20 24 Active betamethasone dipropionate (Diprosone) 0.05 % ointmentIndicati ons:Other allergic contact dermatitis Apply to affected area 2 times daily 50 g 2 04/03/20 24 Active DULoxetine (Cymbalta) 60 MG capsule Take 1 (one) capsule by mouth 2 times daily 180 capsule 4 04/20/20 24 Active triamcinolone acetonide (Kenalog) 0.1 % ointmentIndicati ons:Other allergic contact dermatitis Apply to rash twice daily. 30 days supply. 454 g 3 08/21/19 25 Active Active Problems Problem Noted Date Diagnosed [...] of bone density. -POF will increase her longterm risk for osteoporosis. -Continue OCP -vitamin D [...] Overview (06/13/2021): Last Assessment & Plan: 40 y.o. with type 1 diabetes mellitus, on insulin, poorly-controlled, complicated by myasthenia gravis, hypertension, overweight, subclinical hyperthyroid HgbA1C = 10.9% (09/27/2020) No episodes of hypoglycemia Plan: No medication changes due to inadequate BG log Lantus 30 U qHS Humalog 5 U ac meals + SSI 1:50 > 150 Provided OneTouch Verio glucometer last visit Refill for testing strips sent to pharmacy BG QID finger sticks and document updates via Arimaz Interested in CGM if qualifies for coverage [...] Encounters Date Type Department Care Team Description 08/20/2024 1:00 PM CDT Office Visit [facility] - Dermatology [address] [facility] [address] [place] [address] Buddy Cortez MD Other allergic contact dermatitis (Primary Dx) 08/20/2024 Travel 08/07/2024 1:00 PM CDT Procedure visit [facility] - General Dermatology [address] [place] [address] Allergic contact dermatitis due to multiple agents 08/07/2024 Travel 08/05/2024 1:00 PM CDT Procedure visit [facility] - General Dermatology [address], [address] [place] [address] Allergic contact dermatitis, unspecified trigger 08/05/2024 Travel 08/03/2024 1:00 PM CDT Procedure visit 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 ATTORNEY Legal Sex Female 1:19 PM CDT Gender Identity Not on file Sexual Orientation Not on file Last Filed Vital Signs Vital Sign Reading Time Taken Comments Blood Pressure 146/87 04/20/2024 11:10 AM CONSUMER ATTORNEY Pulse 87 04/20/2024 11:10 AM CONSUMER ATTORNEY Temperature 36.7 C (98 F) 11/16/2023 7:49 AM CDT Respiratory Rate 18 11/16/2023 7:49 AM CDT Oxygen Saturation 98% 04/20/2024 11:10 AM CONSUMER ATTORNEY Inhaled Oxygen Concentration - - Weight 88.5 kg (195 lb) 04/20/2024 11:10 AM CONSUMER ATTORNEY Height 162.6 cm (5' 4 ) 11/15/2023 5:57 AM CDT Body Mass Index 33.47 11/15/2023 5:57 AM CDT Plan of Treatment Upcoming Encounters Date Type Department Care Team (Late st Contact Info) Description 10/20/2024 2:00 PM CDT Office Visit [facility] - Neurology [address] [facility] [address] [facility] [address] [place] [phone] Roxana Logan MD [address] [address] 02/23/2025 11:20 AM CDT Office Visit [facility] - Dermatology [address] [facility] [address] [facility] [address] [place] [address] Buddy Cortez MD [address] [place] [address] Health Maintenance Due Date Last Done Comments [...] WITH MONOFILAMENT 06/13/2021 COVID-19 VACCINE (3 - 2023- season) 2024 11/02/2020, 10/05/2020 DIABETES-HGB A1C 05/16/2024 11/15/2023, , 10/07/2020, Additional history exists DEPRESSION SCREENING 05/27/2024 DIABETES - URINE PROTEIN SCREENING 05/27/2024 MEDICARE AWV CALENDAR YEAR 2024 DIABETES-SERUM CREATININE 11/15/20242023, 11/15/2023, 11/15/2023, Additional history exists INFLUENZA VACCINE (Season Ended) 2025 ZOSTER VACCINE (1 of 2) 2028 HIB VACCINE Aged Out No longer eligi ble based on patient's age to complete this topic HPV VACCINE Aged Out No longer eligi ble based on patient's age to complete this topic MENINGOCOCCAL (Group B) VACCINE SHARED DECISION-MAKING Aged Out No longer eligible based on patient's age to complete this topic MENINGOCOCCAL GROUPS A/C/Y/W VACCINE Aged Out No longer eligible based on patient's age to complete this topic Procedures Procedure Name Priority Date/Time Associated Diagnosis Comments [place] ALLERGY PATCH TESTS Routine 08/04/2024 7:49 AM CDT Allergic contact dermatitis, unspecified trigger RENAL FUNCTION PANEL AM Draw 11/16/2023 2:57 AM CDT Myasthenia gravis HEMOGLOBIN A1C JACQUELINE 11/15/2023 3:06 AM CDT Type 2 diabetes mellitus without complication, unspecified whether 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 Patch test(s) to be tested: (Series /Quantity) Berm[place]ian Core / 89 Patches applied to patient as shown in Annotated Imaging. CLINTON Perales Aries Yi MD PROCEDURE/MINOR SURGICAL ORDERA BLES Final Result * (ABNORMAL) RENAL FUNCTION PANEL (11/16/2023 2:57 AM CDT) BUN 20 7 - 26 mg/dL 11/16/2023 5:16 AM CDT [facility] Creatinine 0.89 0.56 - 0.96 mg/dL 11/16/2023 5:16 AM CDT [facility] Sodium 135(L) 136 - 145 mmol/L 11/16/2023 5:16 AM [facility] Potassium 4.4 3.5 - 4.5 mmol/L 11/16/2023 5:16 AM [facility] Chloride 107 98 - 107 mmol/L 11/16/2023 5:16 AM [facility] CO2 21(L) 22 - 29 mmol/L 11/16/2023 5:16 AM [facility] Glucose 356(H) 70 - 115 mg/dL 11/16/2023 5:16 AM [facility] Albumin 2.7(L) 3.4 - 5.0 g/dL 11/16/2023 5:16 AM [facility] Calcium 9.3 8.4 - 10.2 mg/dL 11/16/2023 5:16 AM [facility] Phosphorus 3.2 2.9 - 5.1 mg/dL 11/16/2023 5:16 AM [facility] Anion Gap 7 6 - 16 11/16/2023 5:16 AM [facility] BUN/Creatinine Ratio 22 7 - 23 11/16/2023 5:16 AM [facility] Osmolality Calculated 297(H) 275 - 295 mOsm/kg 11/16/2023 5:16 AM [facility] eGFR by CKD-EPI 81(L) >=90 mL/min/1.7 3 m2 11/16/2023 5:16 AM [facility] Blood BLOOD SPECIMEN / Unknown Lab Venipuncture / Unknown 11/16/2023 2:57 AM CDT 11/16/2023 4:31 AM T Liban Lujan DO LAB - CHEMISTRY ORDERABLES Final Result [facility] [address] [place] [address], [facility] [phone] * (ABNORMAL) HEMOGLOBIN A1C (11/15/2023 3:06 AM T) Hemoglobin A1c 7.5(H) <=5.6 % 11/15/2023 8:41 AM [facility] Estimated Average Glucose 169 mg/dL 11/15/2023 8:41 AM CDT [facility] Comment: HbA1c Interpretation: Normal : < 5.7% Pre-diabetes: 5.7-6.4% Diabetes: Equal to or greater than 6.5% Test results diagnostic of diabetes should be repeated for confirmation. Treatment target values recommended by ADA and other clinical organizations should be used to evaluate metabolic control in patients. Reference: [place] Diabetes Association, Standards of Care in Diabetes -2020 In patients 70 years and older consider HbA1c target range of 7.0-7.5% (Reference: Franklin Logn et al. JAMDA. 2012) The Sebia assay for the measurement of HbA1c is a National Glycohemoglobin Standardization Program (NGSP) certified method. Blood BLOOD SPECIMEN / Unknown Venipuncture / Unknown 11/15/2023 3:06 AM CDT 11/15/2023 3:16 AM CDT Yevgeniy Whiting MD LAB - CHEMISTRY ORDERABLES Final Result Performing Organization Address City/State/[facility] Co de Phone Number [facility] [address] [place] [address], [facility] [phone] from Last 3 Months or Most Recently Relevant to Health Maintenance Insurance MEDICAID - OUT OF STATE MEDICARE [facility] MANAGED MEDICARE ADV Advance Directives * Full Code (Latest Code Status on File) Date Activated Date Inactivated Comments 11/14/2023 11:44 PM 11/16/2023 4:35 PM * Full Code Date Activated Date Inactivated Comments 05/31/2021 4:52 PM 06/01/2021 12:47 AM Care Teams Sourcing Consultant Relationship Specialty Start Date End Date Amelie Freitas MD [address] [place] [id number] PCP - General 05/02/22
--- OUTSIDE RECORDS SUMMARY | 2024-09-10 16:24 | XMS_ITS | Clinical Summary ---
Author Organization [facility] Address [address] [place] [address] Phone Care Team Providers Care Library Circulation Department Chief Name Role Phone Johnnie Velasquez Provider Primary [...] Health Maintenance Due Date Last Done Comments DIABETES ANNUAL FOOT EXAM 1996 DIABETES ANNUAL RETINAL EXAM 1996 DIABETES MICROALBUMIN ANNUAL SCREEN 1996 LDL CHOLESTEROL ANNUAL 1996 DTAP/TDAP/TD VACCINES (1 - Tdap) 1997 HEPATITIS B VACCINES (1 of 3 - 19+ 3-dose series) 1997 HPV/Cotest (21-29) 1999 CERVICAL CANCER SCREENING 2008 HPV/Cotest (30-65) 2008 PAP SMEAR 2008 BREAST CANCER SCREENING 2018 COLORECTAL SCREENING 2023 Colorectal Cancer Screening 2023 FIT-DNA Q 3 years 2023 FIT/FOBT Q 1 year 2023 Flex Sig/CT Colonography Q 5 years 2023 INFLUENZA VACCINE (#1) 2023 DIABETES HBA1C Q 6 MONTHS 05/16/20242023, 06/13/2021 HPV VACCINES Aged Out No longer eligi ble based on patient's age to complete this topic Care Teams Library Circulation Department Chief Relationship Specialty Start Date End Date Johnnie Velasquez Provider PCP - General 11/10/19
--- OUTSIDE RECORDS SUMMARY | 2024-09-10 16:24 | XMS_ITS | CONTINUITY OF CARE DOCUMENT ---
Author Name moises jessicatom Address Unknown Organization [facility] Address [address] [place] [address] [address] [place] [address] Phone [phone] Care Team Providers Care Inward Toll Operator Name Role Phone Son Gar MD Unavailable [phone] BECKI GALO Unavailable [phone] BECKI GALO Unavailable [phone] PROBLEMS Condition Status Date Provider Notes Cardiology examination active Son St DVT active Son Gar MD Elevated blood pressure active Son Gar MD Leg pain active Son Gar MD Diabetes mellitus active Son Gar MD Swelling of bilateral legs active Son rodriguez MD ENCOUNTERS Date Type Provider Location Encounter Diag nosis - In-person encounter Office Visit [facility] Visit [facility] Swelling of bilateral legs - In-person encounter Office Visit Son Gar MD [facility] Cardiology examinationDVTElevated blood pressureLeg painDiabetes mellitus [...] [lb_av] Kathrine Mcrae pulse rate 98 /min Kathrine Mcrae respiratory rate E&M 18 /min Kathrine [...] Milagro Hernandez gabapentin 600 mg tablet active Milagro Hernandez Humalog KwikPen Insulin 100 unit/mL insulin [...] revi ewed - no changes required Susanne Pacehco smoking status Unknown if ever smoked Bri Pacheco INSURANCE PROVIDERS Payer name Policy type / Coverage type [place] [id number] [facility] Medicaid 1 [id number] ADVANCE DIRECTIVES Name Date DISCUSSED - NO DECISION MADE TREATMENT PLAN Date Name Performer [id number],C,P t still c/o of heaviness in legs and feet despite use of support stockings Christopher Brittrhett [id number],C,B P is elevated, but 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 We will obtain renal duplex and BLANCA. Christopher Stubbs [id number],S,V enous Duplex showed no DVT, however bilateral GSV insufficiency. Christopher Stubbs [id number],S, Son Gar MD [id number],C,Will contine to monitor. Son Gar MD [id number],C,Recommended s upport stockings Son Gar MD [id number],C, T he following medications were removed from the medication list: Lisinopril 5 Mg Tablet (Lisinopril) Her updated medication list for this problem includes: Lantus Solostar U-100 Insulin 100 Unit/ml (3 Ml) Insulin Pen (Insulin glargine) Lisinopril 5 Mg Tablet (Lisinopril) Humalog Kwikpen Insulin 100 Unit/ml Insulin Pen (Insulin lispro) Son Gar MD [id number],C,S table today RPM Susanne Junior [id number],C,P t states the swelling of her left leg has resolved, however both feet are now swelling. I recommend she try support stockings. She has finished with Eliquis and does not want to continue due to heavy menstrual bleeding. Pt denies chest pain and SOB. Susanne Junior [id number],C,P t states the swelling of her left leg has resolved, however both feet are now swelling. I recommend she try support stockings. She has finished with Eliquis and does not want to continue due to heavy menstrual bleeding. Pt denies chest pain and SOB. Susanne Junior [id number],C, H er updated medication list for this problem includes: Lantus Solostar U-100 Insulin 100 Unit/ml (3 Ml) Insulin Pen (Insulin glargine) Lisinopril 5 Mg Tablet (Lisinopril) Humalog Kwikpen Insulin 100 Unit/ml Insulin Pen (Insulin lispro) Son Gar MD [id number],C,T he pt developed DVT of the left leg. The only risk factor was control pill which she has now stopped. No trauma. Started on Eliquis in ER, sxs improved. Recommend to continue Eliquis for 6 months. If she is symptoamtic, we can consider thrombectomy. She has diabetes, we will check echo. Susanne Pacheco [id number],C,. She has diabetes, we will check echo. 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 We will obtain renal duplex and [...]
== END 2024-09-10 16:21 | disposition home or self-care (01) ==
PROVIDERS: PCP Internal Medicine Gastroenterology; Visit Provider Internal Medicine Endocrinology, Diabetes & Metabolism
DX: E27.9 Disorder of adrenal gland, unspecified (principal); K80.20 Calculus of gallbladder without cholecystitis without obstruction
CPT/HCPCS: 74150